=== PATIENT | female | born 1980 | race Two or more races ===

== ENCOUNTER 2020-04-09 13:04 | Inpatient (IN) | payer OTHER ==
[~2020-04-09] VITALS: Ht 162.6 cm; Wt 154.7 kg
[2020-04-09 13:10] VITALS: BP 134/100
--- NOTE | 2020-04-09 13:10 | NUR ---
ED Nurse Note: Pt BIBA RA26 from home c/o SOB. Per EMS, pt was desatting to 87% RA, placed on 4L nc, O2 improved to 96%. Pt is tachycardic at 136. Denies CP. Afebrile. Pt is tested positive for Covid x1 week ago. Isolation precaution is in place. Placed on assorter. ERMD at bedside.
--- NOTE | 2020-04-09 13:30 | NUR ---
ED Nurse Note: IV line established. Blood and covid swab sent to lab.
[2020-04-09 13:38] LABS: BASOPHILS % (AUTO) 0.7 % (0.0-2.0); HEMATOCRIT 39.3 % (37.0-47.0); HEMOGLOBIN 11.3 G/DL (12.0-16.0); LYMPHOCYTES % (AUTO) 10.4 % (20.0-45.0); MEAN CORPUSCULAR VOLUME 81 FL (80-99); MONOCYTES % (AUTO) 9.4 % (1.0-10.0); NEUTROPHILS % (AUTO) 79.5 % (45.0-75.0); PLATELET COUNT 348 K/UL (150-450); RED BLOOD COUNT 4.87 M/UL (4.20-5.40); RED CELL DISTRIBUTION WIDTH 14.9 % (11.6-14.8)
--- NOTE | 2020-04-09 13:42 | NUR ---
ED Nurse Note: Xray at bedside.
--- NOTE | 2020-04-09 13:46 | Emergency Room Report ---
History of Present Illness General Chief Complaint: Dyspnea/Respdistress Source: Patient Present Illness HPI 39-year-old female with history of morbid obesity, diabetes, hypertension here with shortness of breath. Patient tested positive for Covid 7 days ago. Says that over the past several days she has become increasingly short of breath and has had a worsening cough. When paramedics arrived the patient had an oxygen saturation of 84% on room air. She was put on 4 L nasal cannula with good resolution of her hypoxia. Patient complaining of chest tightness. Has felt subjectively febrile but did not check his temperature. No headache, vision changes, focal numbness or weakness, chills, palpitations, back pain, abdominal pain, nausea, vomiting, diarrhea, dysuria. 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 COVID-19 Screening: Positive COVID-19 COVID-19 Testing Source: 1 week ago Nursing Documentation-[facility] Past Medical History: No History, Except For Hx Cardiac Problems: Yes - CHF, obesity Hx Hypertension: Yes - high cholesterol Hx Diabetes: Yes Review of Systems All Other Systems: negative except mentioned in HPI Physical Exam Vital Signs Date Time Temp Pulse Resp B/P (MAP) Pulse Ox O2 Delivery O2 Flow Rate FiO2 04/09/20 13:05 98.8 136 16 134/100 (111) 95 Nasal Cannula 4.0 Sp02 EP Interpretation: reviewed, normal General Appearance: no apparent distress, alert, non-toxic Head: normocephalic, atraumatic Eyes: bilateral eye normal inspection, bilateral eye PERRL ENT: hearing grossly normal, normal pharynx, no angioedema, normal voice Neck: full range of motion, supple/symm/no masses Respiratory: chest non-tender, speaking full sentences, other - Notes. Speaking full sentences. Mildly tachypneic but no respiratory distress Cardiovascular #1: regular rate, rhythm, no edema Cardiovascular #2: 2+ carotid (R), 2+ carotid (L), 2+ radial (R), 2+ radial (L), 2+ dorsalis pedis (R), 2+ dorsalis pedis (L) Gastrointestinal: normal bowel sounds, non tender, soft, non-distended, no guarding, no rebound Rectal: deferred Genitourinary: normal inspection, no CVA tenderness Musculoskeletal: back normal, normal range of motion, gait/station normal, non- tender Neurologic: alert, motor strength/tone normal, oriented x3, sensory intact, responsive, speech normal Psychiatric: judgement/insight normal, memory normal, mood/affect normal, no suicidal/homicidal ideation Lymphatic: no adenopathy Medical Decision Making Diagnostic Impression: Primary Impression: Dyspnea Additional Impressions: Respiratory distress Pneumonia due to COVID-19 virus ER Course EKG: NSR, no ischemia, intervals WNL. No ectopy. Right axis deviation. Rate 117 bpm Rhythm strip: patient monitored for arrhythmias - no malignant dysrhythmias, runs of PVCs, nor pauses noted Chest x-ray: Noted cardiomegaly. Interstitial infiltrates in all lung delarosa consistent with likely viral pneumonia. No pneumothorax. No bony abnormalities. No free air under the diaphragm Laboratory Tests Test 04/09/20 13:30 White Blood Count 6.0 K/UL (4.8-10.8) Red Blood Count 4.87 M/UL (4.20-5.40) Hemoglobin 11.3 G/DL (12.0-16.0) L Hematocrit 39.3 % (37.0-47.0) Mean Corpuscular Volume 81 FL (80-99) Mean Corpuscular Hemoglobin 23.1 PG (27.0-31.0) L Mean Corpuscular Hemoglobin Concent 28.7 G/DL (32.0-36.0) L Red Cell Distribution Width 14.9 % (11.6-14.8) H Platelet Count 348 K/UL (150-450) Mean Platelet Volume 8.0 FL (6.5-10.1) Neutrophils (%) (Auto) 79.5 % (45.0-75.0) H Lymphocytes (%) (Auto) 10.4 % (20.0-45.0) L Monocytes (%) (Auto) 9.4 % (1.0-10.0) Eosinophils (%) (Auto) 0.0 % (0.0-3.0) Basophils (%) (Auto) 0.7 % (0.0-2.0) Prothrombin Time 14.5 SEC (9.30-11.50) H Prothrombin Time INR 1.3 (0.9-1.1) H Activated Partial Thromboplast Time 30 SEC (23-33) D-Dimer Pending Sodium Level Pending Potassium Level Pending Chloride Level Pending Carbon Dioxide Level Pending Blood Urea Nitrogen Pending Creatinine Pending Estimated Glomerular Filtration Rate Pending Glucose Level Pending Lactic Acid Level Pending Calcium Level Pending Magnesium Level Pending Ferritin Pending Total Bilirubin Pending Aspartate Amino Transferase (AST) Pending Alanine Aminotransferase (ALT) Pending Alkaline Phosphatase Pending Lactate Dehydrogenase Pending Total Creatine Kinase Pending Creatine Kinase MB Pending Troponin I Pending C-Reactive Protein, Quantitative Pending Pro-B-Type Natriuretic Peptide Pending Total Protein Pending Albumin Pending Globulin Pending Lipase Pending 39-year-old female with history of CHF, hypertension, diabetes, morbid obesity here with shortness of breath. Patient tested positive for COVID-19 7 days ago. She was hypoxic when paramedics arrived with an oxygen saturation of 84% on room air. She has been on 4 L nasal cannula in the emergency department and appears much more comfortable and has a normal oxygen saturation. Chest x-ray showed severe cardiomegaly consistent with patient's known diagnosis of CHF. She has multiple interstitial infiltrates with pulmonary vascular congestion. Given 40 mg of Lasix IV. Says she believes that she takes "a water pill" but she is not compliant with this medication. She is known Covid positive. Currently awaiting results from Covid test and inflammatory markers. Given ceftriaxone, azithromycin, Decadron, Lovenox. [facility]. Currently awaiting further work-up. Signed out to oncoming physician. Last Vital Signs Date Time Temp Pulse Resp B/P (MAP) Pulse Ox O2 Delivery O2 Flow Rate FiO2 04/09/20 13:10 98.8 136 16 134/100 95 Nasal Cannula 4.0 Referrals: [facility],REFERRING (PCP) Jus Arellano M.D. Apr 09, 2020 13:46
[2020-04-09 13:47] LABS: INR 1.3 (0.9-1.1)
[2020-04-09 13:54] LABS: CREATININE 1.1 MG/DL (0.55-1.30); POTASSIUM 3.9 MMOL/L (3.5-5.1)
[2020-04-09] MEDS ORDERED: Azithromycin 500 MG in NS 275 ML IVPB ONE (14:00)
[2020-04-09] MEDS ORDERED: dexAMETHasone 10mg/ml Inj IV ONE (14:00)
[2020-04-09] MEDS ORDERED: cefTRIAXone 1 GM in NS 55 ML IV ONE (14:00)
[2020-04-09] MEDS ORDERED: Enoxaparin 40mg Inj SUBQ SCH (14:00)
--- NOTE | 2020-04-09 14:06 | Diagnostic Imaging Report ---
Indication: Shortness of breath Technique: One view of the chest Comparison: none Findings: Body habitus limits evaluation. The heart is enlarged. There is bilateral interstitial and airspace disease. The pleural spaces are clear. Impression: Cardiomegaly Bilateral interstitial and airspace disease, likely pulmonary edema, but infiltrates also possible
[2020-04-09 14:09] LABS: ALBUMIN 2.5 G/DL (3.4-5.0); ALBUMIN/GLOBULIN RATIO 0.4 (1.0-2.7); BILIRUBIN,TOTAL 0.6 MG/DL (0.2-1.0); CKMB 1.8 NG/ML (0.0-3.6)
[2020-04-09 14:12] VITALS: BP 132/81
[2020-04-09] MEDS ORDERED: METFORMIN HCL500 M1 ORAL (14:20)
--- NOTE | 2020-04-09 14:45 | NUR ---
ED Nurse Note: Urine sent to lab.
[2020-04-09 14:49] LABS: APPEARANCE,URINE VERY CLOUDY; BILIRUBIN, URINE NEGATIVE (NEGATIVE); GLUCOSE, URINE (UA) NEGATIVE (NEGATIVE); KETONES,URINE NEGATIVE (NEGATIVE); LEUKOCYTE ESTERASE ,URINE 2+ (NEGATIVE); NITRITE,URINE NEGATIVE (NEGATIVE); PH,URINE 6 (4.5-8.0); PROTEIN,URINE 4+ (NEGATIVE); UROBILINOGEN,URINE 4 MG/DL (0.0-1.0)
[2020-04-09 14:55] LABS: COLOR,URINE YELLOW
--- NOTE | 2020-04-09 16:25 | NUR ---
ED Nurse Note: Report given to Christina RAYMOND.
--- NOTE | 2020-04-09 16:27 | NUR ---
NURSE NOTES: Received report from ER nurse Luma/RN, Awaiting for patient to come up to 2E.
[2020-04-09 16:40] VITALS: BP 129/74
--- NOTE | 2020-04-09 16:40 | NUR ---
TRANSFER TO FLOOR: Patient transferred to Telemetry via gurney accompanied by 2 RNs. Pt AAOx4, verbally responsive. On 4L nc, not in any distress. IV line on right AC 20g patent and intact. No skin issues. All belongings sent with the patient.
--- NOTE | 2020-04-09 16:47 | Consultation ---
Consult Note Consult Note DATE OF CONSULTATION: 04/09/2020 CONSULTING PHYSICIAN: Klaus Carrero MD. ATTENDING PHYSICIAN: Dr. Mason REASON FOR CONSULTATION: COVID-19 pneumonia with hypoxia HISTORY OF PRESENT ILLNESS: This is a 39-year-old female with history of morbid obesity, diabetes, hypertension, who presented to the ED for evaluation of shortness of breath. Patient reported testing positive for COVID-19 7 days ago. She also reported that he her shortness of breath has progressively worsened over the last few days. She was saturating at 84% on room air on arrival. Now she is saturating at 98% on 4 L nasal cannula. She denies fever, cough, headache, chills, palpitation, back pain, abdominal pain, nausea, vomiting, di arrhea, or dysuria. EKG showed normal sinus rhythm with no ischemia. Chest x-ray is notable for bilateral interstitial and airspace disease. She tested positive for COVID-19 via rapid gene assay in the ER. She was given ceftriaxone, azithromycin, Decadr on, and Lovenox in the ER and is awaiting admission. PAST MEDICAL HISTORY: Hypertension, diabetes mellitus, morbid obesity MEDICATIONS: Home medications include Metformin ALLERGIES: No known allergies FAMILY HISTORY: Unknown PERSONAL/SOCIAL HISTORY: Lives at home REVIEW OF SYSTEMS: Negative except mentioned in HPI PHYSICAL EXAMINATION: VITAL SIGNS: Blood pressure 134/100, heart rate 136, respiratory rate 19, weight 127 kg, height 162 cm General: Patient laying in bed, NAD, mildly increased work of breathing on 4 L nasal cannula, saturating at 98% HEENT: Head exam reveals that the head is normocephalic, atraumatic without deformity or unusual swelling. Pupils are PERRLA. CHEST AND LUNGS: Reveals clear, normal, symmetrical breath sounds with no adventitious sounds. CARDIOVASCULAR: Reveals normal S1, S2 without murmurs, rubs, or clicks. ABDOMEN: Soft with no tenderness or organomegaly. RECTAL: Deferred. MUSCULOSKELETAL: There is no tenderness to palpation. Range of motion is normal. NEUROLOGICAL: Alert and oriented x3 , nonfocal Extremities: Dry scaly skin in bilateral lower extremity LABORATORY DATA: Laboratory testing shows hemoglobin 11.3, otherwise unremarkable Chemistries show BUN 25, glucose 117, lactic acid 2.8, calcium 8.0, AST 79, LDH 378, troponin 0.153, CRP 16.8, BNP 9293 Urinalysis shows 4+ protein, 5+ blood, 2+ leukocyte esterase, presence of urine bacteria Coagulation panel is notable for D-dimer 3.99 Assessment/Plan 1. COVID-19 pneumonia -We will continue steroids and broad-spectrum antibiotics -Defer use of remdesivir to ID -Provide supplemental oxygen as needed 2. Elevated inflammatory markers -We will initiate Lovenox for DVT prophylaxis 3. GIANNA -IV fluids -Management per primary MD 4. Diabetes mellitus with hyperglycemia -Patient reports taking Metformin at home 5. Lactic acidemia - per primary MD 6. Hypocalcemia - per primary MD 7. Transaminitis, likely secondary to #1 - monitor AST, ALT 8. Elevated troponin -Serial troponin The care for this patient was discussed with my supervising physician. Time spent for this case was approximately 31 minutes. Vitaly Mcginnis Apr 09, 2020 16:47
--- NOTE | 2020-04-09 16:55 | NUR ---
NURSE NOTES: Patient transferred from ED via gurney to room 209-2, without any incident. Awake and alert, mostly Afghan speaking. improvement nurse placed, changed to hospital gown. Belonging check done with transferring nurse, Patient has $80 dollars and refused to send it to safe. Vital sign taken, respiration tachypneic and shallow. Pt has multiple skin issues, will put order for wound eval. Bed in low position and locked, Call light within reach, Encouraged to use call light when needed. Will contact MD for admission orders.
[2020-04-09] MEDS ORDERED: Morphine Sulfate 2mg/ml Inj(IV/IM USE ONLY) IVP PRN (18:15)
[2020-04-09] MEDS: D5 1/2NS 1,000 ML IV SCH (18:25)
[2020-04-09] MEDS ORDERED: Varibar Nectar 240ml MC PRN (19:15)
[2020-04-09] MEDS ORDERED: Varibar Thin Liquid powder 148gm MC PRN (19:15)
[2020-04-09] MEDS ORDERED: Varibar Pudding 230ml MC PRN (19:15)
[2020-04-09] MEDS ORDERED: Varibar Honey 250ml MC PRN (19:15)
--- NOTE | 2020-04-09 19:20 | NUR ---
NURSE HAND-OFF REPORT: Important Events on Shift: New admission Patient Status: Stable Diet: Regular Pending Orders: N/A Pending Results/Labs:morning labs Pending MD notification:N/A Latest Vital Signs: Temperature 98.8 , Pulse 103 , B/P 129 /74 , Respiratory Rate 19 , O2 SAT 98 , Nasal Cannula, O2 Flow Rate 4.0 . Vital Sign Comment: stable EKG Rhythm: Sinus Tachycardia Rhythm change?: MD Notified?: - MD Response: Latest Velasquez Fall Score: 35 Fall Risk: Medium Risk Safety Measures: Call light Within Reach, Bed Alarm Zone 1, Side Rails Side Rails x2, Bed position Low and Locked. Fall Precautions: Yellow Gown Door Sign Patient Fall Education Report given to Columba/SEGUNDO.
--- NOTE | 2020-04-09 19:36 | NUR ---
NURSE NOTES: Received report from mitchell marcelino. received patient on bed, awake. on nc @ 2LPM. no sob. iv access on the right ac running ivf as ordered. denies any pain or discomfort at the moment. engine monitor is on place. per RN, " NSR but ST in the ER(136 heart rate)". reiterated to call and ask for assistance to prevent fall or injury. bed locked and in lowest position. call light and light button within easy reach. bed alarm on. will continue plan of care.
[2020-04-09 20:00] VITALS: BP 110/80
[2020-04-10] VITALS: BP 114/81
[2020-04-10 04:00] VITALS: BP 118/70
--- NOTE | 2020-04-10 04:40 | NUR ---
NURSE NOTES: Bed bath done, patient has a BM, soft brownish moderate in amount. Patient is saturating 94-95% with no complaints of SOB the whole shift. No fever nor desaturation noted.
[2020-04-10 06:46] LABS: BASOPHILS % (AUTO) 0.9 % (0.0-2.0); HEMATOCRIT 40.2 % (37.0-47.0); HEMOGLOBIN 11.5 G/DL (12.0-16.0); LYMPHOCYTES % (AUTO) 16.2 % (20.0-45.0); MEAN CORPUSCULAR VOLUME 81 FL (80-99); MONOCYTES % (AUTO) 10.7 % (1.0-10.0); NEUTROPHILS % (AUTO) 72.1 % (45.0-75.0); PLATELET COUNT 359 K/UL (150-450); RED BLOOD COUNT 4.94 M/UL (4.20-5.40); WHITE BLOOD COUNT 4.7 K/UL (4.8-10.8)
[2020-04-10 07:03] LABS: CREATININE 1.2 MG/DL (0.55-1.30); POTASSIUM 4.6 MMOL/L (3.5-5.1)
--- NOTE | 2020-04-10 07:05 | NUR ---
NURSE NOTES: Received report from Brenna/SEGUNDO. Observed patient awake and alert AAO x4, Able to make needs known, mostly Afghan speaking, On 2L nasal canula, no acute distress/SOB noted. IV on right AC 20G, patent and intact. D5 1/2 NS running @60cc/hr. Side rails up x3, Bed in lowest position and locked. Call light within reach, Encouraged to use call light when needed. Will continue plan of care.
--- NOTE | 2020-04-10 07:23 | NUR ---
NURSE HAND-OFF REPORT: Important Events on Shift: Patient has been resting well the whole shift, no desaturation noted. Patient Status: Patient is awake on bed in stable condition. Plan of care endorsed. Diet: Regular diet Pending Orders: Venous duplex scan Pending Results/Labs:AM lab result Pending MD notification:none Latest Vital Signs: Temperature 98.6 , Pulse 91 , B/P 118 /70 , Respiratory Rate 27 , O2 SAT 94 , Nasal Cannula, O2 Flow Rate 2.0 . Vital Sign Comment: stable EKG Rhythm: Sinus Tachycardia Rhythm change?: N MD Notified?: - MD Response: Latest Velasquez Fall Score: 45 Fall Risk: High Risk Safety Measures: Call light Within Reach, Bed Alarm Zone 1, Side Rails Side Rails x2, Bed position Low and Locked. Fall Precautions: Yellow Socks Yellow Gown Door Sign Patient Fall Education Report given to SEGUNDO Crow.
[2020-04-10 08:00] VITALS: BP 109/55
[2020-04-10] MEDS: Azithromycin 500 MG in D5W 275 ML IV SCH (08:32)
[2020-04-10] MEDS: cefTRIAXone 1 GM in D5W 55 ML IVPB SCH (08:33)
[2020-04-10] MEDS: dexAMETHasone 10mg/ml Inj IV SCH (08:33)
[2020-04-10] MEDS: Enoxaparin 40mg Inj SUBQ SCH (08:34)
--- NOTE | 2020-04-10 08:56 | NUR ---
PT NOTE Received MD order for PT evaluation. Patient with order for duplex venous scan bilateral LEs. Will wait for results of duplex scan prior to initiating PT evaluation. Christina RN notified, will follow.
[2020-04-10] MEDS: D5 1/2NS 1,000 ML IV SCH (11:15)
--- NOTE | 2020-04-10 11:23 | Diagnostic Imaging Report ---
Indication:Leg pain and swelling Technique: Grayscale and duplex Doppler imaging of the veins in both lower extremities performed in real time utilizing compression and augmentation. Comparison: None Findings: Duplex Doppler interrogation of the veins in both lower extremity is performed from the common femoral vein to the popliteal vein. Exam is technically limited due to patient obesity. Visualized portions of the right common femoral vein, femoral vein and popliteal vein are patent with observed compressibility and maintained color and Doppler flow. Visualized portions of the left common femoral vein, femoral vein and popliteal vein are patent with preserved compressibility and maintained color and Doppler flow. IMPRESSION: Technically limited evaluation due to body habitus/obesity. No deep venous thrombosis appreciated to the extent visualized.
[2020-04-10 12:00] VITALS: BP 100/60
--- NOTE | 2020-04-10 13:26 | Pulmonology Progress Note ---
Subjective ROS Limited/Unobtainable: No Interval Events: none major reported per nursing Constitutional: Reports: other - feels better HEENT: Repors: no symptoms Respiratory: Reports: no symptoms Cardiovascular: Reports: no symptoms Gastrointestinal/Abdominal: Reports: no symptoms Allergies: Coded Allergies: No Known Allergies (Unverified , 04/09/20) Objective Last 24 Hour Vital Signs Date Time Temp Pulse Resp B/P (MAP) Pulse Ox O2 Delivery O2 Flow Rate FiO2 04/10/20 12:00 86 04/10/20 12:00 97.6 69 20 100/60 (73) 97 04/10/20 09:00 Nasal Cannula 2.0 04/10/20 08:00 98.6 97 21 109/55 (73) 96 04/10/20 08:00 98 04/10/20 04:00 98.6 91 27 118/70 (86) 94 04/10/20 04:00 92 04/10/20 00:00 98.5 97 30 114/81 (92) 95 04/09/20 21:00 Nasal Cannula 2.0 04/09/20 20:00 112 04/09/20 20:00 98.8 104 28 110/80 (90) 94 04/09/20 16:51 Nasal Cannula 4.0 04/09/20 16:40 98.8 103 19 129/74 98 Nasal Cannula 4.0 04/09/20 16:40 98.8 103 19 129/74 98 Nasal Cannula 4.0 04/09/20 14:12 98.8 105 19 132/81 98 Nasal Cannula 4.0 Intake and Output 04/09/20 04/10/20 19:00 07:00 Intake Total 500 ml 250 ml Balance 500 ml 250 ml Intake Oral 250 ml IV Total 500 ml # Voids 1 2 # Bowel Movements 1 General Appearance: no acute distress HEENT: atraumatic Respiratory: lungs clear Cardiovascular: normal rate Abdomen: soft, non tender Microbiology Date/Time Source Procedure Growth Status 04/09/20 13:30 Nasopharynx SARS-CoV-2 RdRp Gene Assay - Final Complete Laboratory Tests 04/09/20 13:30: White Blood Count 6.0, Red Blood Count 4.87, Hemoglobin 11.3L, Hematocrit 39.3, Mean Corpuscular Volume 81, Mean Corpuscular Hemoglobin 23.1L, Mean Corpuscular Hemoglobin Concent 28.7L, Red Cell Distribution Width 14.9H, Platelet Count 348, Mean Platelet Volume 8.0, Neutrophils (%) (Auto) 79.5H, Lymphocytes (%) (Auto) 10.4L, Monocytes (%) (Auto) 9.4, Eosinophils (%) (Auto) 0.0, Basophils (%) (Auto) 0.7, Prothrombin Time 14.5H, Prothromb Time International Ratio 1.3H, Activated Partial Thromboplast Time 30, D-Dimer 3.99H, Sodium Level 139, Potassium Level 3.9, Chloride Level 102, Carbon Dioxide Level 31, Anion Gap 7, Blood Urea Nitrogen 25H, Creatinine 1.1, Estimat Glomerular Filtration Rate 55.0, Glucose Level 117H, Lactic Acid Level 2.80H, Calcium Level 8.0L, Magnesium Level 1.8, Ferritin 113, Total Bilirubin 0.6, Aspartate Amino Transf (AST/SGOT) 79H, Alanine Aminotransferase (ALT/SGPT) 43, Alkaline Phosphatase 115, Lactate Dehydrogenase 378H, Total Creatine Kinase 281, Creatine Kinase MB 1.8, Creatine Kinase MB Relative Index 0.6, Troponin I 0.153H, C-Reactive Protein, Quantitative 16.8H, Pro-B-Type Natriuretic Peptide 9293H, Total Protein 8.3H, Albumin 2.5L, Globulin 5.8, Albumin/Globulin Ratio 0.4L, Lipase 125 04/09/20 14:45: Lactic Acid Level 2.50H, Urine Color Yellow, Urine Appearance Very cloudy, Urine pH 6, Urine Specific [place] 1.015, Urine Protein 4+H, Urine Glucose (UA) Negative, Urine Ketones Negative, Urine Blood 5+H, Urine Nitrite Negative, Urine Bilirubin Negative, Urine Urobilinogen 4H, Urine Leukocyte Esterase 2+H, Urine RBC 15-20H, Urine WBC 5-10H, Urine Squamous Epithelial Cells ModerateH, Urine Amorphous Sediment FewH, Urine Bacteria ModerateH 04/10/20 06:00: White Blood Count 4.7L, Red Blood Count 4.94, Hemoglobin 11.5L, Hematocrit 40.2, Mean Corpuscular Volume 81, Mean Corpuscular Hemoglobin 23.4L, Mean Corpuscular Hemoglobin Concent 28.7L, Red Cell Distribution Width 15.0H, Platelet Count 359, Mean Platelet Volume 8.6, Neutrophils (%) (Auto) 72.1, Lymphocytes (%) (Auto) 16.2L, Monocytes (%) (Auto) 10.7H, Eosinophils (%) (Auto) 0.0, Basophils (%) (Auto) 0.9, Sodium Level 140, Potassium Level 4.6, Chloride Level 104, Carbon Di oxide Level 32, Anion Gap 4L, Blood Urea Nitrogen 35H, Creatinine 1.2, Estimat Glomerular Filtration Rate 49.8, Glucose Level 131H, Calcium Level 8.0L Current Medications Medications (Trade) Dose Ordered Sig/Arturo Route PRN Reason Start Time Stop Time Status Last Admin Dose Admin Azithromycin 500 mg/Dextrose 275 ml @ 275 mls/hr Q24HRS IV 04/10/20 09:00 04/16/20 09:59 04/10/20 08:32 Barium Sulfate (Varibar Honey) 250 ml NOW PRN MC RAD 04/09/20 19:15 04/12/20 19:03 Barium Sulfate (Varibar Floral) 240 ml NOW PRN MC RAD 04/09/20 19:15 04/12/20 19:03 Barium Sulfate (Varibar Pudding) 230 ml NOW PRN MC RAD 04/09/20 19:15 04/12/20 19:03 Barium Sulfate (Varibar Thin Liquid powder) 148 gm NOW PRN MC RAD 04/09/20 19:15 04/12/20 19:03 Ceftriaxone Sodium 1 gm/ Dextrose 55 ml @ 110 mls/hr Q24H IVPB 04/10/20 09:00 04/17/20 08:59 04/10/20 08:33 Dexamethasone Sodium Phosphate (Decadron 10mg/ ml Inj) 6 mg DAILY IV 04/10/20 09:00 04/18/20 09:01 04/10/20 08:33 Dextrose/Sodium Chloride 1,000 ml @ 60 mls/hr [id number] IV 04/09/20 18:15 05/09/20 18:14 04/10/20 11:15 Enoxaparin Sodium (Lovenox) 40 mg DAILY SUBQ 04/10/20 09:00 07/09/20 08:59 04/10/20 08:34 Morphine Sulfate (Morphine Sulfate) 2 mg Q4H PRN IVP For Pain 04/09/20 18:15 04/16/20 18:14 Assessment/Plan Assessment/Plan 1. COVID-19 pneumonia -We will continue steroids and broad-spectrum antibiotics -Defer use of remdesivir to ID -Provide supplemental oxygen as needed 2. Elevated inflammatory markers -continue Lovenox for DVT prophylaxis - Venous duplex neg for DVT (04/10) 3. GIANNA -IV fluids -Management per primary MD 4. Diabetes mellitus with hyperglycemia -Patient reports taking Metformin at home 5. Lactic acidemia - per primary MD 6. Hypocalcemia - per primary MD 7. Transaminitis, likely secondary to #1 - monitor AST, ALT 8. Elevated troponin -Serial troponin The care for this patient was discussed with my supervising physician. Time spent for this case was approximately 31 minutes. Vitaly Mcginnis Apr 10, 2020 13:26
--- NOTE | 2020-04-10 13:40 | NUR ---
Community Outreach WorkerRegistered Public Health Nurse Patient MAGALI from home CC: Respiratory distress, (+) COVID test x 1 week ago SI: Respiratory Failure, COVID-19, PNA T-98.7, HR 136, RR 16, BP 134/100 O2 sat 87% on RA O2 4L NC D-Dimer 3.99, troponin 0.153, NT-ProBNP 9293, Lactic Acid 2.8 U/A Leukocyte esterase 2+, WBC 5-10, bacteria moderate, BUN 25 Cxray-interstitial infiltrates in all lung delarosa consistent with likely viral pneumonia. IS: NACL Bolus Lasix 40mg IV Azithromycin IV Decadron IV Rocephin IV Lovenox IV Admit to Telemetry Telemetry Status DCP: Home pending hospitalization
--- NOTE | 2020-04-10 14:15 | Consultation ---
DATE OF CONSULTATION: 04/10/2020 INFECTIOUS DISEASE CONSULTATION CONSULTING PHYSICIAN: Usman Gant MD. PRIMARY ATTENDING PHYSICIAN: Dawood Mason DO. This consult is for coverage of Dr. Lucero. REASON FOR CONSULT: COVID-19 disease. HISTORY OF PRESENT ILLNESS: This is a 39-year-old female admitted yesterday from home complaining of shortness of breath and cough, had decrease in O2 saturation with O2 saturation of 84% on room air. The patient was COVID positive seven days before the day of admission. PAST MEDICAL HISTORY: Morbid obesity, hyperlipidemia, diabetes mellitus. ALLERGIES: No known drug allergies. MEDICATIONS: Getting enoxaparin, dexamethasone, ceftriaxone, azithromycin, morphine. SOCIAL HISTORY: Single. Denies alcohol, drug abuse, or smoking. REVIEW OF SYSTEMS: No fever. No chills. Has some dry cough. No nausea. No vomiting. No diarrhea. PHYSICAL EXAMINATION: VITAL SIGNS: Temperature is 97.6, pulse 69, blood pressure 100/60. GENERAL APPEARANCE: Morbidly obese. HEAD AND NECK: Getting oxygen by nasal cannula. Currently on 2 liters, oxygen saturation is 97%. HEART: Tachycardia. LUNGS: Clear. ABDOMEN: Soft, obese. EXTREMITIES: She has evidence of stasis dermatitis of both legs, has edema of right foot. LABORATORY AND DIAGNOSTIC DATA: WBC 4.7, hemoglobin 11.5, hematocrit 40.2, platelets 359,000. Lymphocytes is low 16.2%. Lactic acid is elevated, the latest one is 2.5. Sodium 140, potassium 4.6, chloride 104, bicarb 32, BUN 35, creatinine 1.2. Glucose 131. Troponin was 0.153. UA showed wbc of 5 to 10, rbc of 15 to 20. IMPRESSION: 1. COVID-19 disease. 2. Hypoxemia. 3. Morbid obesity. 4. Hyperlipidemia. 5. Lymphocytopenia. 6. Lactic acidosis. 7. Hyperglycemia. RECOMMENDATION: Continue dexamethasone and azithromycin. Case was discussed with pharmacy. If the patient is eligible he will receive remdesivir. At the end of my exam, I thank Dr. Dawood Mason for involving me in the care of this patient. Usman Gant M.D. DR: SYDNEY JOB#: [id number] CC:
--- NOTE | 2020-04-10 14:25 | NUR ---
NURSE NOTES:WOUND CARE NOTES: Morbidly obese pt whom presented on admission with MASD skin folds of both breasts, abdominal folds, Bilat groin and skin folds of both upper thighs. Affected areas are grossly Erythematous, denuded and malodorous Haemosiderin with thickened,scaled skin Bilat lower ext. Necrotic Ulcer noted to distal/lateral Lower ext(L)1.3cm x (W)1.2cm. Marginal erythema along borders. No exudate noted. Both heels are callused and dry. Pt has been educated on wound prevention. Encouraged to frequently or at least hourly reposition self in bed to prevent pressure injury. Pt also noted to have Bladder incontinence. Pt encouraged to notify staff when soiled to prevent Pressure Injuries. Tx.Plan: Wash and dry skin folds. Apply Light dusting of Antifungal powder to skin folds. Interdry sheets to skin folds of both breasts and abdominal folds. Remove Sheetes only for cleansing. May leave in place for 5 days then discard. Apply Betadine to Ulcer R Lateral lower ext. Cover with Optifoam drsg. Change every 3 days and prn. Assist wth repositioning at least every 2hours or as tolerated. Elevate both legs and Off-load heels with Pillow.
[2020-04-10 16:00] VITALS: BP 94/60
--- NOTE | 2020-04-10 16:26 | NUR ---
Speech Pathology Note: Per RN, patient currently tolerating current regular texture diet with no overt/subtle s/s of aspiration. Bedside Swallow Evaluation cancelled. Thank you for this consult.
--- NOTE | 2020-04-10 17:44 | History and Physical Report ---
DATE OF ADMISSION: 04/09/2020 DATE AND TIME SEEN: 04/10/2020 at 2 p.m. CONSULTANTS: 1. Klaus Carrero M.D. 2. Leo Lucero M.D. CHIEF COMPLAINT: Shortness of breath, COVID infection, hypoxia, and obesity. BRIEF HISTORY: This is a 39-year-old female who lives at home, tested positive for COVID about a week ago, has been having increased shortness of breath. Yesterday she was very weak and lethargic and short of breath, came into [facility], diagnosed with the above as well as hypoxia down to 84%, requiring 4 L nasal cannula. [facility], currently O2 NC, sleeping in bed, not talking much. REVIEW OF SYSTEMS: Unavailable. PAST MEDICAL HISTORY: Diabetes, hypertension, obesity, CHF, COVID. PAST SURGICAL HISTORY: Unknown. MEDICATIONS: , dexamethasone, ceftriaxone, azithromycin, morphine, furosemide. ALLERGIES: Denies. SOCIAL HISTORY: Unable to obtain. The patient is lethargic and sleepy. PHYSICAL EXAMINATION: GENERAL: Lethargic and sleeping in bed, not talking much. VITAL SIGNS: Temperature 97, pulse 69, respirations 20, blood pressure 100/60. CARDIOVASCULAR: No murmur. LUNGS: Poor air exchange. ABDOMEN: Bowel sounds distant. EXTREMITIES: No cyanosis, clubbing, edema. NEUROLOGIC: The patient moves extremities, but slightly weak. LABORATORY AND DIAGNOSTIC DATA: Labs at this time show white count of 4.7, H and H 11/45, platelets are 359. BMP shows BUN of 35, creatinine 1.2, glucose 131, calcium 8. Troponin 0.153. BNP is . Albumin 2.5. INR is 1.3. D-dimer 3.99. Urinalysis, 4+ protein, 5+ blood, 2+ leukocyte esterase. ASSESSMENT: 1. COVID infection. 2. Shortness of breath. 3. Malnutrition. 4. Hypoxia. 5. UTI. 6. Obesity. 7. Anemia. 8. Elevated troponin. 9. Diabetes. 10. Hypertension. 11. CHF. PLAN: 1. O2, pulmonary treatment. 2. Antibiotics per Infectious Disease. 3. Blood pressure and blood sugar control. 4. Dietary followup. 5. Cardiology evaluation, Dr. Tijerina. 6. CBC and BMP in the morning. 7. PT/dietary evaluation. Dawood Mason D.O. DR: RAJNI JOB#: [id number] CC:
[2020-04-10] MEDS ORDERED: IRON325 M1 PO (17:49)
[2020-04-10] MEDS ORDERED: IBUPROFEN400 MG ORAL (17:49)
--- NOTE | 2020-04-10 19:09 | NUR ---
NURSE HAND-OFF REPORT: Important Events on Shift:covid monitoring, seen by wound care nurse Patient Status: stable Diet: reg Pending Orders: na Pending Results/Labs:na Pending MD notification:n/a Latest Vital Signs: Temperature 97.1 , Pulse 91 , B/P 94 /60 , Respiratory Rate 19 , O2 SAT 97 , Nasal Cannula, O2 Flow Rate 2.0 . Vital Sign Comment: Stable EKG Rhythm: Sinus Rhythm Rhythm change?: N MD Notified?: - MD Response: Latest Velasquez Fall Score: 45 Fall Risk: High Risk Safety Measures: Call light Within Reach, Bed Alarm Zone 1, Side Rails Side Rails x2, Bed position Low and Locked. Fall Precautions: Yellow Socks Yellow Gown Door Sign Patient Fall Education Report given to SEGUNDO Ventura.
[2020-04-10] MEDS: guaiFENesin /DM 10ml syrup ORAL PRN (19:43)
--- NOTE | 2020-04-10 19:50 | NUR ---
NURSE NOTES: Patient in bed, awake and alert x4. No signs of distress. athletic monitor in place; sinus rhythm. IV intact and patent. Bed locked and in lowest position. Call light in reach. Bed alarm on. Administered PRN cough medicine as ordered. Will continue plan of care.
[2020-04-10 20:00] VITALS: BP 100/60
--- NOTE | 2020-04-10 22:33 | NUR ---
NURSE NOTES: Patient on 4L oxygen at beginning of shift. O2 saturation began to go down to the 80's. Called RT, who attempted venturi mask but patient continued to desaturate to the 70's. Non-rebreather mask applied at 100% - patient's O2 sat now at 99%. Spoke with Dr. Carrero who is now aware. No further orders. Will continue to monitor.
[2020-04-11] VITALS: BP 141/67
[2020-04-11] MEDS: D5 1/2NS 1,000 ML IV SCH ×2 (03:49→20:54)
[2020-04-11 03:55] VITALS: BP 135/85
--- NOTE | 2020-04-11 05:30 | NUR ---
NURSE NOTES: Patient's temperature 100.[address] Lior Gant - Tylenol 650 PRN ordered. Will administer and reassess.
--- NOTE | 2020-04-11 07:21 | NUR ---
NURSE HAND-OFF REPORT: Important Events on Shift: Desaturating on NC - Now on non-rebreather mask 100%, Fever 100.9 Patient Status: Stable Diet: Reg Pending Orders: N/A Pending Results/Labs: CBC, BMP Pending MD notification: N/A Latest Vital Signs: Temperature 99.0 , Pulse 106 , B/P 135 /85 , Respiratory Rate 36 , O2 SAT 99 , Nasal Cannula, O2 Flow Rate 4.0 . Vital Sign Comment: Sinus Tach EKG Rhythm: Sinus Tachycardia Rhythm change?: N MD Notified?: - MD Response: Latest Velasquez Fall Score: 45 Fall Risk: High Risk Safety Measures: Call light Within Reach, Bed Alarm Zone 1, Side Rails Side Rails x2, Bed position Low and Locked. Fall Precautions: Yellow Socks Yellow Gown Door Sign Patient Fall Education Report given to SEGUNDO Rosales.
--- NOTE | 2020-04-11 07:38 | NUR ---
NURSE NOTES: Received report from SEGUNDO Ventura. Patient observed to be awake, alert and oriented x4. Currently on contact and droplet iso for (+) covid. Seen lying in bed wt HOB elevated currently on a 100% NRB mask sating well, no s/sx of sob/distress. Patient with IV site located on RAC gauge 20 line asymptomatic, inplace and intact. Bed placed on lowest and locked, call light placed within reach and will continue to monitor.
--- NOTE | 2020-04-11 07:56 | NUR ---
CASE MANAGEMENT:REVIEW 04/11/20 SI: COVID PNA. GIANNA. ELEVATED TROPONIN 100.9 106 36 135/85 99% NRB IS: IV DECADRON QD IV ROCEPHIN Q24 IV AZITHROMYCIN Q24 LOVENOX SQ QD IVF@60/HR : TELEMETRY STATUS DCP: FROM HOME PLAN: ST AND PT EVAL PENDING
[2020-04-11 08:00] VITALS: BP 99/66
[2020-04-11] MEDS: Azithromycin 500 MG in D5W 275 ML IV SCH (08:24)
[2020-04-11] MEDS: dexAMETHasone 10mg/ml Inj IV SCH (08:24)
[2020-04-11] MEDS: cefTRIAXone 1 GM in D5W 55 ML IVPB SCH (08:24)
[2020-04-11 08:26] LABS: HEMATOCRIT 39.5 % (37.0-47.0); HEMOGLOBIN 11.2 G/DL (12.0-16.0); MEAN CORPUSCULAR VOLUME 83 FL (80-99); PLATELET COUNT 366 K/UL (150-450); RED BLOOD COUNT 4.76 M/UL (4.20-5.40)
[2020-04-11] MEDS: Enoxaparin 40mg Inj SUBQ SCH (08:27)
[2020-04-11 09:03] LABS: CALCIUM 8.5 MG/DL (8.5-10.1); CREATININE 1.1 MG/DL (0.55-1.30); POTASSIUM 4.4 MMOL/L (3.5-5.1)
--- NOTE | 2020-04-11 09:40 | NUR ---
PT NOTE Received MD order for PT evaluation. Connie RN requesting to hold PT evaluation today as patient desaturated last night and is now on rebreather mask. Willl follow up tomorrow.
--- NOTE | 2020-04-11 10:01 | General Progress Note ---
Subjective Constitutional: Reports: weakness Allergies: Coded Allergies: No Known Allergies (Unverified , 04/09/20) All Systems: reviewed and negative except above Subjective o2 mask sleepy Objective Last 24 Hour Vital Signs Date Time Temp Pulse Resp B/P (MAP) Pulse Ox O2 Delivery O2 Flow Rate FiO2 04/11/20 06:56 99.0 04/11/20 06:15 99.0 04/11/20 05:30 100.9 04/11/20 03:55 99.7 106 36 135/85 (102) 99 04/11/20 03:37 100 04/11/20 00:00 99.3 106 32 141/67 (91) 100 04/11/20 00:00 111 04/10/20 22:40 Non-Rebreather 04/10/20 21:00 Nasal Cannula 4.0 04/10/20 20:00 98.9 104 29 100/60 (73) 92 04/10/20 19:37 100 04/10/20 16:00 91 04/10/20 16:00 97.1 69 19 94/60 (71) 97 04/10/20 12:00 86 04/10/20 12:00 97.6 69 20 100/60 (73) 97 Intake and Output 04/10/20 04/11/20 19:00 07:00 Intake Total 700 ml Output Total 200 ml Balance 500 ml Intake Oral 700 ml Output Urine Total 200 ml # Voids 3 # Bowel Movements 1 Laboratory Tests 04/11/20 07:41: White Blood Count 8.0#, Red Blood Count 4.76, Hemoglobin 11.2L, Hematocrit 39.5, Mean Corpuscular Volume 83, Mean Corpuscular Hemoglobin 23.6L, Mean Corpuscular Hemoglobin Concent 28.4L, Red Cell Distribution Width 15.0H, Platelet Count 366, Mean Platelet Volume 10.0, Neutrophils (%) (Auto) , Lymphocytes (%) (Auto) , Monocytes (%) (Auto) , Eosinophils (%) (Auto) , Basophils (%) (Auto) , Differential Total Cells Counted 100, Neutrophils % (Manual) 89H, Lymphocytes % (Manual) 7L, Monocytes % (Manual) 4, Eosinophils % (Manual) 0, Basophils % (Manual) 0, Band Neutrophils 0, Platelet Estimate Adequate, Platelet Morphology Normal, Hypochromasia 1+, Anisocytosis 1+, Sodium Level 139, Potassium Level 4.4, Chloride Level 103, Carbon Dioxide Level 32, Anion Gap 4L, Blood Urea Nitrogen 32H, Creatinine 1.1, Estimat Glomerular Filtration Rate 55.0, Glucose Level 112H, Calcium Level 8.5 Height (Feet): 5 Height (Inches): 4.00 Weight (Pounds): 341 General Appearance: lethargic EENT: normal ENT inspection Neck: normal alignment Cardiovascular: normal peripheral pulses, normal rate, regular rhythm Respiratory/Chest: chest wall non-tender, lungs clear, normal breath sounds Abdomen: normal bowel sounds, non tender, soft Extremities: normal inspection Edema: no edema noted Arm (L), no edema noted Arm (R), no edema noted Leg (L), no edema noted Leg (R), no edema noted Pedal (L), no edema noted Pedal (R), no edema noted Generalized Neurologic: motor weakness Skin: normal pigmentation, warm/dry Assessment/Plan Problem List: (1) HTN (hypertension) ICD Codes: I10 - Essential (primary) hypertension SNOMED: 53684553 (2) Diabetes ICD Codes: E11.9 - Type 2 diabetes mellitus without complications SNOMED: 10329082 (3) Obese ICD Codes: E66.9 - Obesity, unspecified SNOMED: 825303027, 731470977 (4) CHF (congestive heart failure) ICD Codes: I50.9 - Heart failure, unspecified SNOMED: 24278497 (5) Dyspnea ICD Codes: R06.00 - Dyspnea, unspecified SNOMED: 365827813 (6) Pneumonia due to COVID-19 virus ICD Codes: U07.1 - COVID-19; J12.82 - Pneumonia due to coronavirus disease 2019 SNOMED: 821262745460352060 (7) Respiratory distress ICD Codes: R06.03 - Acute respiratory distress SNOMED: 648282182 (8) Hypoxia ICD Codes: R09.02 - Hypoxemia SNOMED: 528028283 (9) COVID-19 ICD Codes: U07.1 - COVID-19 SNOMED: 577206726 Status: unchanged Assessment/Plan: o2 pum tx abx bp bs control cardio f/u cbc bmp am Dawood Mason DO Apr 11, 2020 10:01
--- NOTE | 2020-04-11 10:09 | Pulmonology Progress Note ---
Subjective ROS Limited/Unobtainable: No Interval Events: now on NRB Constitutional: Reports: other - feels better HEENT: Repors: no symptoms Respiratory: Reports: no symptoms Cardiovascular: Reports: no symptoms Gastrointestinal/Abdominal: Reports: no symptoms Allergies: Coded Allergies: No Known Allergies (Unverified , 04/09/20) All Systems: reviewed and negative except above Objective Last 24 Hour Vital Signs Date Time Temp Pulse Resp B/P (MAP) Pulse Ox O2 Delivery O2 Flow Rate FiO2 04/11/20 06:56 99.0 04/11/20 06:15 99.0 04/11/20 05:30 100.9 04/11/20 03:55 99.7 106 36 135/85 (102) 99 04/11/20 03:37 100 04/11/20 00:00 99.3 106 32 141/67 (91) 100 04/11/20 00:00 111 04/10/20 22:40 Non-Rebreather 04/10/20 21:00 Nasal Cannula 4.0 04/10/20 20:00 98.9 104 29 100/60 (73) 92 04/10/20 19:37 100 04/10/20 16:00 91 04/10/20 16:00 97.1 69 19 94/60 (71) 97 04/10/20 12:00 86 04/10/20 12:00 97.6 69 20 100/60 (73) 97 Intake and Output 04/10/20 04/11/20 19:00 07:00 Intake Total 700 ml Output Total 200 ml Balance 500 ml Intake Oral 700 ml Output Urine Total 200 ml # Voids 3 # Bowel Movements 1 General Appearance: no acute distress HEENT: atraumatic Respiratory: lungs clear Cardiovascular: normal rate Abdomen: soft, non tender Microbiology Date/Time Source Procedure Growth Status 04/09/20 14:45 Urine,Clean Catch Urine Culture - Final Mixed Urogenital Contaminants Complete 04/09/20 13:30 Nasopharynx SARS-CoV-2 RdRp Gene Assay - Final Complete 04/09/20 13:30 Blood Blood Culture - Preliminary NO GROWTH AFTER 24 HOURS Resulted 04/09/20 13:15 Blood Blood Culture - Preliminary NO GROWTH AFTER 24 HOURS Resulted Laboratory Tests 04/11/20 07:41: White Blood Count 8.0#, Red Blood Count 4.76, Hemoglobin 11.2L, Hematocrit 39.5, Mean Corpuscular Volume 83, Mean Corpuscular Hemoglobin 23.6L, Mean Corpuscular Hemoglobin Concent 28.4L, Red Cell Distribution Width 15.0H, Platelet Count 366, Mean Platelet Volume 10.0, Neutrophils (%) (Auto) , Lymphocytes (%) (Auto) , Monocytes (%) (Auto) , Eosinophils (%) (Auto) , Basophils (%) (Auto) , Differential Total Cells Counted 100, Neutrophils % (Manual) 89H, Lymphocytes % (Manual) 7L, Monocytes % (Manual) 4, Eosinophils % (Manual) 0, Basophils % (Manual) 0, Band Neutrophils 0, Platelet Estimate Adequate, Platelet Morphology Normal, Hypochromasia 1+, Anisocytosis 1+, Sodium Level 139, Potassium Level 4.4, Chloride Level 103, Carbon Dioxide Level 32, Anion Gap 4L, Blood Urea Nitrogen 32H, Creatinine 1.1, Estimat Glomerular Filtration Rate 55.0, Glucose Level 112H, Calcium Level 8.5 Current Medications Medications (Trade) Dose Ordered Sig/Arturo Route PRN Reason Start Time Stop Time Status Last Admin Dose Admin Acetaminophen (Tylenol) 650 mg Q4H PRN ORAL Temp >100.5 04/11/20 05:30 05/11/20 05:29 04/11/20 05:45 Azithromycin 500 mg/Dextrose 275 ml @ 275 mls/hr Q24HRS IV 04/10/20 09:00 04/16/20 09:59 04/11/20 08:24 Barium Sulfate (Varibar Honey) 250 ml NOW PRN MC RAD 04/09/20 19:15 04/12/20 19:03 Barium Sulfate (Varibar [place]) 240 ml NOW PRN MC RAD 04/09/20 19:15 04/12/20 19:03 Barium Sulfate (Varibar Pudding) 230 ml NOW PRN MC RAD 04/09/20 19:15 04/12/20 19:03 Barium Sulfate (Varibar Thin Liquid powder) 148 gm NOW PRN MC RAD 04/09/20 19:15 04/12/20 19:03 Ceftriaxone Sodium 1 gm/ Dextrose 55 ml @ 110 mls/hr Q24H IVPB 04/10/20 09:00 04/17/20 08:59 04/11/20 08:24 Dexamethasone Sodium Phosphate (Decadron 10mg/ ml Inj) 6 mg DAILY IV 04/10/20 09:00 04/18/20 09:01 04/11/20 08:24 Dextrose/Sodium Chloride 1,000 ml @ 60 mls/hr [id number] IV 04/09/20 18:15 05/09/20 18:14 04/11/20 03:49 Enoxaparin Sodium (Lovenox) 40 mg DAILY SUBQ 04/10/20 09:00 07/09/20 08:59 04/11/20 08:27 Guaifenesin/ Dextromethorphan (Robitussin DM Syrup) 15 ml Q6H PRN ORAL For Cough 04/10/20 19:00 07/09/20 18:59 04/10/20 19:43 Morphine Sulfate (Morphine Sulfate) 2 mg Q4H PRN IVP For Pain 04/09/20 18:15 04/16/20 18:14 04/11/20 00:05 Assessment/Plan Assessment/Plan 1. COVID-19 pneumonia -We will continue steroids and broad-spectrum antibiotics -Defer use of remdesivir to ID -pt desaturated on NC yesterday; now on NRB, will wean down today 2. Elevated inflammatory markers -continue Lovenox for DVT prophylaxis - Venous duplex neg for DVT (04/10) 3. GIANNA -IV fluids -Management per primary MD 4. Diabetes mellitus with hyperglycemia -Patient reports taking Metformin at home 5. Lactic acidemia - per primary MD 6. Hypocalcemia - per primary MD 7. Transaminitis, likely secondary to #1 - monitor AST, ALT 8. Elevated troponin -Serial troponin 9. New onset fever - Xyxh=937.9 - no leukocytosis - monitor temp The care for this patient was discussed with my supervising physician. Time spent for this case was approximately 31 minutes. Vitaly Mcginnis Apr 11, 2020 10:09
--- NOTE | 2020-04-11 11:15 | Infectious Diseases Prog Note ---
Assessment/Plan Assessment/Plan antibiotics : ceftriaxone, azithromycin A 1. covid 19 pneumonia on 15 liters O2 with 96 % saturation 2. diabetes mellitus 3. obesity P 1. start remdesivir 2. continue dexamethasone day 3 3. d/c ceftriaxone, azithromycin 4. continue isolation Subjective ROS Limited/Unobtainable: Yes Allergies: Coded Allergies: No Known Allergies (Unverified , 04/09/20) Objective Last 24 Hour Vital Signs Date Time Temp Pulse Resp B/P (MAP) Pulse Ox O2 Delivery O2 Flow Rate FiO2 04/11/20 09:00 Non-Rebreather 04/11/20 08:00 109 04/11/20 08:00 98.5 114 22 99/66 (77) 96 04/11/20 06:56 99.0 04/11/20 06:15 99.0 04/11/20 05:30 100.9 04/11/20 03:55 99.7 106 36 135/85 (102) 99 04/11/20 03:37 100 04/11/20 00:00 99.3 106 32 141/67 (91) 100 04/11/20 00:00 111 04/10/20 22:40 Non-Rebreather 04/10/20 21:00 Nasal Cannula 4.0 04/10/20 20:00 98.9 104 29 100/60 (73) 92 04/10/20 19:37 100 04/10/20 16:00 91 04/10/20 16:00 97.1 69 19 94/60 (71) 97 04/10/20 12:00 86 04/10/20 12:00 97.6 69 20 100/60 (73) 97 Height (Feet): 5 Height (Inches): 4.00 Weight (Pounds): 341 Microbiology Date/Time Source Procedure Growth Status 04/09/20 14:45 Urine,Clean Catch Urine Culture - Final Mixed Urogenital Contaminants Complete 04/09/20 13:30 Nasopharynx SARS-CoV-2 RdRp Gene Assay - Final Complete 04/09/20 13:30 Blood Blood Culture - Preliminary NO GROWTH AFTER 24 HOURS Resulted 04/09/20 13:15 Blood Blood Culture - Preliminary NO GROWTH AFTER 24 HOURS Resulted Laboratory Tests Test 04/11/20 07:41 White Blood Count 8.0 K/UL (4.8-10.8) # Red Blood Count 4.76 M/UL (4.20-5.40) Hemoglobin 11.2 G/DL (12.0-16.0) L Hematocrit 39.5 % (37.0-47.0) Mean Corpuscular Volume 83 FL (80-99) Mean Corpuscular Hemoglobin 23.6 PG (27.0-31.0) L Mean Corpuscular Hemoglobin Concent 28.4 G/DL (32.0-36.0) L Red Cell Distribution Width 15.0 % (11.6-14.8) H Platelet Count 366 K/UL (150-450) Mean Platelet Volume 10.0 FL (6.5-10.1) Neutrophils (%) (Auto) % (45.0-75.0) Lymphocytes (%) (Auto) % (20.0-45.0) Monocytes (%) (Auto) % (1.0-10.0) Eosinophils (%) (Auto) % (0.0-3.0) Basophils (%) (Auto) % (0.0-2.0) Differential Total Cells Counted 100 Neutrophils % (Manual) 89 % (45-75) H Lymphocytes % (Manual) 7 % (20-45) L Monocytes % (Manual) 4 % (1-10) Eosinophils % (Manual) 0 % (0-3) Basophils % (Manual) 0 % (0-2) Band Neutrophils 0 % (0-8) Platelet Estimate Adequate Platelet Morphology Normal Hypochromasia 1+ Anisocytosis 1+ Sodium Level 139 MMOL/L (136-145) Potassium Level 4.4 MMOL/L (3.5-5.1) Chloride Level 103 MMOL/L (98-107) Carbon Dioxide Level 32 MMOL/L (21-32) Anion Gap 4 mmol/L (5-15) L Blood Urea Nitrogen 32 mg/dL (7-18) H Creatinine 1.1 MG/DL (0.55-1.30) Estimat Glomerular Filtration Rate 55.0 mL/min (>60) Glucose Level 112 MG/DL (74-106) H Calcium Level 8.5 MG/DL (8.5-10.1) Current Medications Medications (Trade) Dose Ordered Sig/Arturo Route PRN Reason Start Time Stop Time Status Last Admin Dose Admin Acetaminophen (Tylenol) 650 mg Q4H PRN ORAL Temp >100.5 04/11/20 05:30 05/11/20 05:29 04/11/20 05:45 Azithromycin 500 mg/Dextrose 275 ml @ 275 mls/hr Q24HRS IV 04/10/20 09:00 04/16/20 09:59 04/11/20 08:24 Barium Sulfate (Varibar Honey) 250 ml NOW PRN MC RAD 04/09/20 19:15 04/12/20 19:03 Barium Sulfate (Varibar [place]) 240 ml NOW PRN MC RAD 04/09/20 19:15 04/12/20 19:03 Barium Sulfate (Varibar Pudding) 230 ml NOW PRN MC RAD 04/09/20 19:15 04/12/20 19:03 Barium Sulfate (Varibar Thin Liquid powder) 148 gm NOW PRN MC RAD 04/09/20 19:15 04/12/20 19:03 Ceftriaxone Sodium 1 gm/ Dextrose 55 ml @ 110 mls/hr Q24H IVPB 04/10/20 09:00 04/17/20 08:59 04/11/20 08:24 Dexamethasone Sodium Phosphate (Decadron 10mg/ ml Inj) 6 mg DAILY IV 04/10/20 09:00 04/18/20 09:01 04/11/20 08:24 Dextrose/Sodium Chloride 1,000 ml @ 60 mls/hr [id number] IV 04/09/20 18:15 05/09/20 18:14 04/11/20 03:49 Enoxaparin Sodium (Lovenox) 40 mg DAILY SUBQ 04/10/20 09:00 07/09/20 08:59 04/11/20 08:27 Guaifenesin/ Dextromethorphan (Robitussin DM Syrup) 15 ml Q6H PRN ORAL For Cough 04/10/20 19:00 07/09/20 18:59 04/10/20 19:43 Morphine Sulfate (Morphine Sulfate) 2 mg Q4H PRN IVP For Pain 04/09/20 18:15 04/16/20 18:14 04/11/20 00:05 Leo Lucero MD Apr 11, 2020 11:15
[2020-04-11 11:41] LABS: ALANINE AMINOTRANSFERASE 70 U/L (12-78); ASPARTATE AMINO TRANSFERASE 92 U/L (15-37)
[2020-04-11 12:00] VITALS: BP 113/73
--- NOTE | 2020-04-11 13:37 | NUR ---
NURSE NOTES: Consent for stress test obtained by Dr. Rodriguez and procedure performed. No complications observed during test. Patient in stable condition after test. Will continue to monitor for any changes in patient's condition. Addendum: 04/11/20 at 1925 by Connie Love RN WRONG PT
--- NOTE | 2020-04-11 13:56 | Cardiac Electrophysiology PN ---
Subjective Subjective [id number] Objective Last 24 Hour Vital Signs Date Time Temp Pulse Resp B/P (MAP) Pulse Ox O2 Delivery O2 Flow Rate FiO2 04/11/20 12:00 95 04/11/20 12:00 98.5 99 22 113/73 (86) 98 04/11/20 09:00 Non-Rebreather 04/11/20 08:00 109 04/11/20 08:00 98.5 114 22 99/66 (77) 96 04/11/20 06:56 99.0 04/11/20 06:15 99.0 04/11/20 05:30 100.9 04/11/20 03:55 99.7 106 36 135/85 (102) 99 04/11/20 03:37 100 04/11/20 00:00 99.3 106 32 141/67 (91) 100 04/11/20 00:00 111 04/10/20 22:40 Non-Rebreather 04/10/20 21:00 Nasal Cannula 4.0 04/10/20 20:00 98.9 104 29 100/60 (73) 92 04/10/20 19:37 100 04/10/20 16:00 91 04/10/20 16:00 97.1 69 19 94/60 (71) 97 Intake and Output 04/10/20 04/11/20 19:00 07:00 Intake Total 700 ml Output Total 200 ml Balance 500 ml Intake Oral 700 ml Output Urine Total 200 ml # Voids 3 # Bowel Movements 1 Laboratory Tests Test 04/11/20 07:41 04/11/20 07:49 White Blood Count 8.0 K/UL (4.8-10.8) # Red Blood Count 4.76 M/UL (4.20-5.40) Hemoglobin 11.2 G/DL (12.0-16.0) L Hematocrit 39.5 % (37.0-47.0) Mean Corpuscular Volume 83 FL (80-99) Mean Corpuscular Hemoglobin 23.6 PG (27.0-31.0) L Mean Corpuscular Hemoglobin Concent 28.4 G/DL (32.0-36.0) L Red Cell Distribution Width 15.0 % (11.6-14.8) H Platelet Count 366 K/UL (150-450) Mean Platelet Volume 10.0 FL (6.5-10.1) Neutrophils (%) (Auto) % (45.0-75.0) Lymphocytes (%) (Auto) % (20.0-45.0) Monocytes (%) (Auto) % (1.0-10.0) Eosinophils (%) (Auto) % (0.0-3.0) Basophils (%) (Auto) % (0.0-2.0) Differential Total Cells Counted 100 Neutrophils % (Manual) 89 % (45-75) H Lymphocytes % (Manual) 7 % (20-45) L Monocytes % (Manual) 4 % (1-10) Eosinophils % (Manual) 0 % (0-3) Basophils % (Manual) 0 % (0-2) Band Neutrophils 0 % (0-8) Platelet Estimate Adequate Platelet Morphology Normal Hypochromasia 1+ Anisocytosis 1+ Sodium Level 139 MMOL/L (136-145) Potassium Level 4.4 MMOL/L (3.5-5.1) Chloride Level 103 MMOL/L (98-107) Carbon Dioxide Level 32 MMOL/L (21-32) Anion Gap 4 mmol/L (5-15) L Blood Urea Nitrogen 32 mg/dL (7-18) H Creatinine 1.1 MG/DL (0.55-1.30) Estimat Glomerular Filtration Rate 55.0 mL/min (>60) Glucose Level 112 MG/DL (74-106) H Calcium Level 8.5 MG/DL (8.5-10.1) Aspartate Amino Transf (AST/SGOT) 92 U/L (15-37) H Alanine Aminotransferase (ALT/SGPT) 70 U/L (12-78) Microbiology Date/Time Source Procedure Growth Status 04/09/20 14:45 Urine,Clean Catch Urine Culture - Final Mixed Urogenital Contaminants Complete 04/09/20 13:30 Nasopharynx SARS-CoV-2 RdRp Gene Assay - Final Complete 04/09/20 13:30 Blood Blood Culture - Preliminary NO GROWTH AFTER 24 HOURS Resulted 04/09/20 13:15 Blood Blood Culture - Preliminary NO GROWTH AFTER 24 HOURS Resulted Dave Tijerina MD Apr 11, 2020 13:56
--- NOTE | 2020-04-11 15:14 | Consultation ---
DATE OF CONSULTATION: 04/11/2020 CARDIOLOGY CONSULTATION REFERRING PHYSICIAN: Dawood Mason D.O. REASON FOR THE CONSULTATION: Shortness of breath. HISTORY OF PRESENT ILLNESS: The patient is a 39-year-old lady with hypertension, diabetes, and morbid obesity, who presented to the emergency room for increasing shortness of breath. The patient was tested positive for COVID 7 days ago. The patient has became more short of breath and has worsening cough. When the paramedics arrived, the patient's saturation was 84% on room air and was put on 4 L nasal cannula. The patient was then admitted. Initially, she was tachycardia, heart rate of 136 and blood pressure was 134/100. The patient was put on COVID isolation. The patient was on 2 L nasal cannula; however, saturation got worse and now is on 100% nonrebreather. REVIEW OF SYSTEMS: Negative other than what was mentioned in history of present illness. PAST MEDICAL HISTORY: As mentioned above. FAMILY HISTORY: Noncontributory. SOCIAL HISTORY: She lives at home. Does not drink alcohol or do drugs. PHYSICAL EXAMINATION: VITAL SIGNS: Blood pressure of 113/73, pulse is 99, respirations are 18, and temperature 98.5, maximum temperature is 100.9. HEAD AND NECK: No JVD. LUNGS: Decreased breath sounds. CARDIOVASCULAR: Tachycardic S1 and S2 with no gallop. ABDOMEN: Obese. EXTREMITIES: 1+ pitting edema. LABORATORY AND DIAGNOSTIC DATA: Labs show white count of 8, hemoglobin of 11.2, hematocrit 39.5, platelet count was 366. Sodium 139, potassium 4.4, BUN of 32, creatinine 1.1, and glucose of 112. Lactic acid is 2.8. Her BNP was 9293 and troponin was elevated at 0.153. ASSESSMENT AND PLAN: 1. Elevated troponin. This could be due to COVID myocarditis. The EKG does not show any acute ST-T wave abnormality. We will repeat the EKG and get an echocardiogram for further evaluation. In the meantime, put the patient on low-dose aspirin and beta-faina. 2. Congestive heart failure with BNP of almost 10,000. We will get an echocardiogram. 3. COVID pneumonia and respiratory failure, on 100% nonrebreather facemask at this time. Further evaluation by Dr. Carrero. On steroid and broad-spectrum antibiotic. 4. Diabetes. 5. Lactic acidemia. 6. Fever. Thank you very much for allowing me to participate in the care of this patient. Please do not hesitate to contact me for any questions regarding my evaluation. Dave Tijerina M.D. DR: ALE JOB#: [id number] CC:
[2020-04-11 16:00] VITALS: BP 106/66
[2020-04-11] MEDS ORDERED: Loading Dose:Remdesivir 200mg/NS 210ml IV SCH ×2 (16:00)
[2020-04-11] MEDS ORDERED: Tubing IV Secondary IV ONE (17:52)
--- NOTE | 2020-04-11 19:25 | NUR ---
NURSE HAND-OFF REPORT: Important Events on Shift:COVID MONITORING Patient Status: stable Diet: reg Pending Orders: n/a Pending Results/Labs:n/a Pending MD notification:n/a Latest Vital Signs: Temperature 98.1 , Pulse 97 , B/P 106 /66 , Respiratory Rate 22 , O2 SAT 99 , Nasal Cannula, O2 Flow Rate 4.0 . Vital Sign Comment: stable EKG Rhythm: Sinus Tachycardia Rhythm change?: N MD Notified?: - MD Response: Latest Velasquez Fall Score: 45 Fall Risk: High Risk Safety Measures: Call light Within Reach, Bed Alarm Zone 1, Side Rails Side Rails x2, Bed position Low and Locked. Fall Precautions: Yellow Socks Yellow Gown Door Sign Patient Fall Education Report given to Brenda RN.
--- NOTE | 2020-04-11 19:35 | NUR ---
NURSE NOTES: received report from mitchell yoo. patient is awake and oriented. on non-rebreather mask at 15lpm sating 97-99%. no complaints of shortness of breath at rest. denies any pain or discomfort at the moment. iv access on the right ac, running d5 1/2 ns @ 60 ml/hr. iv patent and intact. skein washer in placed. fredo states" tried to wean off to venturi mask but the patient desaturated to 90-92%, put back non-rebreather mask sating 97-98%" reiterated to call and ask for assistance to prevent fall or injury. patient is covid positive. maintained isolation precautions as ordered. bed locked and in lowest position. call light and light button within easy reach. bed alarm on. will continue plan of care.
[2020-04-11 20:00] VITALS: BP 128/80
[2020-04-11] MEDS: Metoprolol Tartrate 12.5mg TAB ORAL SCH (20:54)
[2020-04-12] VITALS: BP 127/80
--- NOTE | 2020-04-12 01:00 | NUR ---
NURSE NOTES: with an order to wean off to venturi mask. paged RT reji. per reji " patient desaturated @ 80's with venturi mask". patient is still on non- rebreather mask sating 97-100%.
[2020-04-12 04:00] VITALS: BP 123/72
[2020-04-12 05:00] LABS: ALBUMIN 2.4 G/DL (3.4-5.0); ALBUMIN/GLOBULIN RATIO 0.4 (1.0-2.7); BASOPHILS % (AUTO) 0.6 % (0.0-2.0); BILIRUBIN,DIRECT 0.2 MG/DL (0.0-0.3); BILIRUBIN,TOTAL 0.2 MG/DL (0.2-1.0); CALCIUM 8.9 MG/DL (8.5-10.1); CREATININE 1.2 MG/DL (0.55-1.30); HEMATOCRIT 40.9 % (37.0-47.0); HEMOGLOBIN 11.4 G/DL (12.0-16.0); LYMPHOCYTES % (AUTO) 9.8 % (20.0-45.0); MEAN CORPUSCULAR VOLUME 84 FL (80-99); MONOCYTES % (AUTO) 7.8 % (1.0-10.0); NEUTROPHILS % (AUTO) 81.8 % (45.0-75.0); PLATELET COUNT 348 K/UL (150-450); POTASSIUM 5.3 MMOL/L (3.5-5.1); RED BLOOD COUNT 4.86 M/UL (4.20-5.40); RED CELL DISTRIBUTION WIDTH 15.6 % (11.6-14.8); WHITE BLOOD COUNT 5.6 K/UL (4.8-10.8)
--- NOTE | 2020-04-12 05:00 | NUR ---
NURSE NOTES: with an order to obtain ecg under dr. perla due to CHF. ecg is done showing normal sinus rhythm left posterior fascicular block. copy of the ecg result attached to the patient's chart.
--- NOTE | 2020-04-12 07:20 | NUR ---
NURSE HAND-OFF: Important Events on Shift: RT(TROY)TRIED TO WEAN OFF TO VENTURI MASK PATIENT DESATURATED TO 80'S.CURRENTLY ON NON-REBREATHER MASK SATING 97-100%. NO EPISODE OF SHORTNESS OF BREATH Patient Status:STABLE Diet: REGULAR Pending Orders: Pending Results/Labs: Pending MD notification: Latest Vital Signs: Temperature 97.7 , Pulse 88 , B/P 123 /72 , Respiratory Rate 24 , O2 SAT 98 , Nasal Cannula, O2 Flow Rate 4.0 . Vital Sign Comment: Latest Velasquez Fall Score: 45 Fall Risk: High Risk Safety Measures: Call light Within Reach, Bed Alarm Zone 1, Side Rails Side Rails x2, Bed position Low and Locked. Fall Precautions: Yellow Socks Yellow Gown Door Sign Patient Fall Education Report given to SEGUNDO GARCIA.
--- NOTE | 2020-04-12 07:30 | NUR ---
NURSE NOTES: Receive a report from SEGUNDO Loco.
--- NOTE | 2020-04-12 07:40 | NUR ---
NURSE NOTES: Pt is awake and alert, [id number]'s position. Noted SOB during movement. On non-breather mask 15L spo2 99%. Intermittent coughing with sputum. Will provide medication as ordered. IV is running via right hand as ordered. On amaya-wick for urination. Bilateral non-pitting edema with rough skin on L/E. Call light within reach. Will continue to monitor.
[2020-04-12 08:00] VITALS: BP 112/65
--- NOTE | 2020-04-12 08:00 | NUR ---
NURSE NOTES: Seen by PT. Pt is able to sit-up in bed side with assist but noted SOB. Spo2 remains 97-99% with non-breather mask. Pt will be followed up next schedule. Will continue to monitor.
[2020-04-12] MEDS: Aspirin EC 81mg tab ORAL SCH (09:08)
[2020-04-12] MEDS: Metoprolol Tartrate 12.5mg TAB ORAL SCH ×2 (09:08→21:00)
[2020-04-12] MEDS: dexAMETHasone 10mg/ml Inj IV SCH (09:08)
[2020-04-12] MEDS: Enoxaparin 40mg Inj SUBQ SCH (09:09)
[2020-04-12] MEDS: guaiFENesin /DM 10ml syrup ORAL PRN (09:22)
--- NOTE | 2020-04-12 09:30 | Infectious Diseases Prog Note ---
Assessment/Plan Assessment/Plan A 1. COVID19 pneumonia 2. diabetes mellitus 3. obesity 4. Hypoxemia P 1. Continue remdesivir 2. continue dexamethasone day 4 3. continue isolation Subjective ROS Limited/Unobtainable: Yes Constitutional: Reports: anorexia Respiratory: Reports: shortness of breath, dry cough Allergies: Coded Allergies: No Known Allergies (Unverified , 04/09/20) Objective Last 24 Hour Vital Signs Date Time Temp Pulse Resp B/P (MAP) Pulse Ox O2 Delivery O2 Flow Rate FiO2 04/12/20 09:08 86 112/65 04/12/20 08:00 98.4 90 24 112/65 (81) 98 04/12/20 08:00 86 04/12/20 04:00 88 04/12/20 04:00 97.7 91 24 123/72 (89) 98 04/12/20 00:00 97.9 97 25 127/80 (96) 99 04/12/20 00:00 97 04/11/20 21:00 Non-Rebreather 04/11/20 20:54 95 130/76 04/11/20 20:00 98 04/11/20 20:00 97.5 96 24 128/80 (96) 96 04/11/20 16:00 98.1 97 22 106/66 (79) 99 04/11/20 16:00 96 04/11/20 12:00 95 04/11/20 12:00 98.5 99 22 113/73 (86) 98 Height (Feet): 5 Height (Inches): 4.00 Weight (Pounds): 341 HEENT: mucous membranes moist Respiratory/Chest: other - oxygen by NRB mask Cardiovascular: normal rate Abdomen: soft, non tender Skin: other - stasis dematis of legs Microbiology Date/Time Source Procedure Growth Status 04/09/20 14:45 Urine,Clean Catch Urine Culture - Final Mixed Urogenital Contaminants Complete 04/09/20 13:30 Nasopharynx SARS-CoV-2 RdRp Gene Assay - Final Complete 04/09/20 13:30 Blood Blood Culture - Preliminary NO GROWTH AFTER 48 HOURS Resulted 04/09/20 13:15 Blood Blood Culture - Preliminary NO GROWTH AFTER 48 HOURS Resulted Laboratory Tests Test 04/11/20 16:25 04/12/20 02:50 Troponin I 0.040 ng/mL (0.000-0.056) 0.050 ng/mL (0.000-0.056) White Blood Count 5.6 K/UL (4.8-10.8) Red Blood Count 4.86 M/UL (4.20-5.40) Hemoglobin 11.4 G/DL (12.0-16.0) L Hematocrit 40.9 % (37.0-47.0) Mean Corpuscular Volume 84 FL (80-99) Mean Corpuscular Hemoglobin 23.5 PG (27.0-31.0) L Mean Corpuscular Hemoglobin Concent 27.9 G/DL (32.0-36.0) L Red Cell Distribution Width 15.6 % (11.6-14.8) H Platelet Count 348 K/UL (150-450) Mean Platelet Volume 10.0 FL (6.5-10.1) Neutrophils (%) (Auto) 81.8 % (45.0-75.0) H Lymphocytes (%) (Auto) 9.8 % (20.0-45.0) L Monocytes (%) (Auto) 7.8 % (1.0-10.0) Eosinophils (%) (Auto) 0.0 % (0.0-3.0) Basophils (%) (Auto) 0.6 % (0.0-2.0) Sodium Level 138 MMOL/L (136-145) Potassium Level 5.3 MMOL/L (3.5-5.1) H Chloride Level 103 MMOL/L (98-107) Carbon Dioxide Level 29 MMOL/L (21-32) Anion Gap 6 mmol/L (5-15) Blood Urea Nitrogen 40 mg/dL (7-18) H Creatinine 1.2 MG/DL (0.55-1.30) Estimat Glomerular Filtration Rate 49.8 mL/min (>60) Glucose Level 121 MG/DL (74-106) H Calcium Level 8.9 MG/DL (8.5-10.1) Total Bilirubin 0.2 MG/DL (0.2-1.0) Direct Bilirubin 0.2 MG/DL (0.0-0.3) Aspartate Amino Transf (AST/SGOT) 70 U/L (15-37) H Alanine Aminotransferase (ALT/SGPT) 64 U/L (12-78) Alkaline Phosphatase 103 U/L (46-116) Pro-B-Type Natriuretic Peptide 5369 pg/mL (0-125) H Total Protein 8.5 G/DL (6.4-8.2) H Albumin 2.4 G/DL (3.4-5.0) L Globulin 6.1 g/dL Albumin/Globulin Ratio 0.4 (1.0-2.7) L Current Medications Medications (Trade) Dose Ordered Sig/Arturo Route PRN Reason Start Time Stop Time Status Last Admin Dose Admin Acetaminophen (Tylenol) 650 mg Q4H PRN ORAL Temp >100.5 04/11/20 05:30 05/11/20 05:29 04/11/20 05:45 Aspirin (Ecotrin) 81 mg DAILY ORAL 04/12/20 09:00 05/27/20 08:59 04/12/20 09:08 Barium Sulfate (Varibar Honey) 250 ml NOW PRN MC RAD 04/09/20 19:15 04/12/20 19:03 Barium Sulfate (Varibar [place]) 240 ml NOW PRN MC RAD 04/09/20 19:15 04/12/20 19:03 Barium Sulfate (Varibar Pudding) 230 ml NOW PRN MC RAD 04/09/20 19:15 04/12/20 19:03 Barium Sulfate (Varibar Thin Liquid powder) 148 gm NOW PRN MC RAD 04/09/20 19:15 04/12/20 19:03 Dexamethasone Sodium Phosphate (Decadron 10mg/ ml Inj) 6 mg DAILY IV 04/10/20 09:00 04/18/20 09:01 04/12/20 09:08 Dextrose/Sodium Chloride 1,000 ml @ 60 mls/hr [id number] IV 04/09/20 18:15 05/09/20 18:14 04/11/20 20:54 Enoxaparin Sodium (Lovenox) 40 mg DAILY SUBQ 04/10/20 09:00 07/09/20 08:59 04/12/20 09:09 Guaifenesin/ Dextromethorphan (Robitussin DM Syrup) 15 ml Q6H PRN ORAL For Cough 04/10/20 19:00 07/09/20 18:59 04/12/20 09:22 Metoprolol Tartrate (Lopressor) 12.5 mg Q12HR ORAL 04/11/20 21:00 07/10/20 20:59 04/12/20 09:08 Morphine Sulfate (Morphine Sulfate) 2 mg Q4H PRN IVP For Pain 04/09/20 18:15 04/16/20 18:14 04/11/20 00:05 Remdesivir 100 mg/ Sodium Chloride 250 ml @ 250 mls/hr Q24H IV 04/12/20 16:00 04/15/20 16:59 Usman Gant MD Apr 12, 2020 09:30
--- NOTE | 2020-04-12 09:45 | NUR ---
P.T Note: Pt. stable and cleared by RN. P.T evaluation completed and tx initiated. Pt received on espinoza position on breather mask saturating at 99-97%. Pt is alert, O x 4 and cooperative. Pt reports c/o mild chest pain aggravated when coughing. ADL/functional mobility participation and performance are limited by body habitus , generalized weakness, quick onset of fatigue and visible mild SOB with minimal exertion however pt is highly motivated and participative in the P.T eval/tx process. Pt currently requires MOD A X 2 bed mobilities and transfers. Pt able to partially stand with MOD A X 2 and FWW for 10 seconds x 2 attempts. O2 sat remains 96-98% with continues breather mask then dropped to 84% when bed was position on trendelenburg to scoot patient up return to center of the bed then recovered back up to 99-98% after reposition for comfort and back to Espinoza position. P.T will progress activity as tolerated. Recommend SNF for intensive rehab VS home P.T depending on progress.
--- NOTE | 2020-04-12 10:15 | NUR ---
NURSE NOTES: Update Dr. Mason for pt's conditions including K:5.3. Will recheck K level stat. Order noted and carried out.
--- NOTE | 2020-04-12 10:26 | General Progress Note ---
Subjective Constitutional: Reports: weakness Allergies: Coded Allergies: No Known Allergies (Unverified , 04/09/20) All Systems: reviewed and negative except above Subjective o2 mask sleepy Objective Last 24 Hour Vital Signs Date Time Temp Pulse Resp B/P (MAP) Pulse Ox O2 Delivery O2 Flow Rate FiO2 04/12/20 09:08 86 112/65 04/12/20 08:00 98.4 90 24 112/65 (81) 98 04/12/20 08:00 86 04/12/20 04:00 88 04/12/20 04:00 97.7 91 24 123/72 (89) 98 04/12/20 00:00 97.9 97 25 127/80 (96) 99 04/12/20 00:00 97 04/11/20 21:00 Non-Rebreather 04/11/20 20:54 95 130/76 04/11/20 20:00 98 04/11/20 20:00 97.5 96 24 128/80 (96) 96 04/11/20 16:00 98.1 97 22 106/66 (79) 99 04/11/20 16:00 96 04/11/20 12:00 95 04/11/20 12:00 98.5 99 22 113/73 (86) 98 Intake and Output 04/11/20 04/12/20 19:00 07:00 Intake Total 178 ml 860 ml Balance 178 ml 860 ml Intake Oral 118 ml 200 ml IV Total 60 ml 660 ml # Voids 1 3 Laboratory Tests 04/11/20 16:25: Troponin I 0.040 04/12/20 02:50: Troponin I 0.050, White Blood Count 5.6, Red Blood Count 4.86, Hemoglobin 11.4L, Hematocrit 40.9, Mean Corpuscular Volume 84, Mean Corpuscular Hemoglobin 23.5L, Mean Corpuscular Hemoglobin Concent 27.9L, Red Cell Distribution Width 15.6H, Platelet Count 348, Mean Platelet Volume 10.0, Neutrophils (%) (Auto) 81.8H, Lymphocytes (%) (Auto) 9.8L, Monocytes (%) (Auto) 7.8, Eosinophils (%) (Auto) 0.0, Basophils (%) (Auto) 0.6, Sodium Level 138, Potassium Level 5.3H, Chloride Level 103, Carbon Dioxide Level 29, Anion Gap 6, Blood Urea Nitrogen 40H, Creatinine 1.2, Estimat Glomerular Filtration Rate 49.8, Glucose Level 121H, Calcium Level 8.9, Total Bilirubin 0.2, Direct Bilirubin 0.2, Aspartate Amino Transf (AST/SGOT) 70H, Alanine Aminotransferase (ALT/SGPT) 64, Alkaline Phosphatase 103, Pro-B-Type Natriuretic Peptide 5369H, Total Protein 8.5H, Albumin 2.4L, Globulin 6.1, Albumin/Globulin Ratio 0.4L Height (Feet): 5 Height (Inches): 4.00 Weight (Pounds): 341 General Appearance: lethargic EENT: normal ENT inspection Neck: normal alignment Cardiovascular: normal peripheral pulses, normal rate, regular rhythm Respiratory/Chest: chest wall non-tender, lungs clear, normal breath sounds Abdomen: normal bowel sounds, non tender, soft Extremities: normal inspection Edema: no edema noted Arm (L), no edema noted Arm (R), no edema noted Leg (L), no edema noted Leg (R), no edema noted Pedal (L), no edema noted Pedal (R), no edema noted Generalized Neurologic: motor weakness Skin: normal pigmentation, warm/dry Assessment/Plan Problem List: (1) HTN (hypertension) ICD Codes: I10 - Essential (primary) hypertension SNOMED: 78980397 (2) Diabetes ICD Codes: E11.9 - Type 2 diabetes mellitus without complications SNOMED: 56961647 (3) Obese ICD Codes: E66.9 - Obesity, unspecified SNOMED: 149520221, 903665451 (4) CHF (congestive heart failure) ICD Codes: I50.9 - Heart failure, unspecified SNOMED: 25983079 (5) Dyspnea ICD Codes: R06.00 - Dyspnea, unspecified SNOMED: 786408234 (6) Pneumonia due to COVID-19 virus ICD Codes: U07.1 - COVID-19; J12.82 - Pneumonia due to coronavirus disease 2019 SNOMED: 096440031580520827 (7) Respiratory distress ICD Codes: R06.03 - Acute respiratory distress SNOMED: 387225144 (8) Hypoxia ICD Codes: R09.02 - Hypoxemia SNOMED: 074902101 (9) COVID-19 ICD Codes: U07.1 - COVID-19 SNOMED: 631283938 Status: unchanged Assessment/Plan: o2 pum tx abx bp bs control cardio f/u cbc bmp am Dawood Mason DO Apr 12, 2020 10:26
--- NOTE | 2020-04-12 10:27 | Cardiac Electrophysiology PN ---
Assessment/Plan Assessment/Plan 1. Elevated troponin. This could be due to COVID myocarditis. The EKG does not show any acute ST-T wave abnormality. Echocardiogram EF 65% . Continue aspirin and Lopressor. 2. Congestive heart failure with BNP of almost 10,000. EF 65%. Due to diastolic dysfunction Add Lasix 40 iv daily 3. COVID pneumonia and respiratory failure, on 100% nonrebreather facemask, steroid, Remdesevir and broad-spectrum antibiotic. Fu by Dr. Carrero. 4. Severe TR and pulmonary HTN with PAP 70s. ? COPD. FU Dr Carrero 5. Diabetes. 6. Lactic acidemia. 7. Fever. Subjective Subjective Alert in NAD on 15 L NRB FM in covid isolation. Has no appetite Objective Last 24 Hour Vital Signs Date Time Temp Pulse Resp B/P (MAP) Pulse Ox O2 Delivery O2 Flow Rate FiO2 04/12/20 09:08 86 112/65 04/12/20 08:00 98.4 90 24 112/65 (81) 98 04/12/20 08:00 86 04/12/20 04:00 88 04/12/20 04:00 97.7 91 24 123/72 (89) 98 04/12/20 00:00 97.9 97 25 127/80 (96) 99 04/12/20 00:00 97 04/11/20 21:00 Non-Rebreather 04/11/20 20:54 95 130/76 04/11/20 20:00 98 04/11/20 20:00 97.5 96 24 128/80 (96) 96 04/11/20 16:00 98.1 97 22 106/66 (79) 99 04/11/20 16:00 96 04/11/20 12:00 95 04/11/20 12:00 98.5 99 22 113/73 (86) 98 Intake and Output 04/11/20 04/12/20 19:00 07:00 Intake Total 178 ml 860 ml Balance 178 ml 860 ml Intake Oral 118 ml 200 ml IV Total 60 ml 660 ml # Voids 1 3 Laboratory Tests Test 04/11/20 16:25 04/12/20 02:50 Troponin I 0.040 ng/mL (0.000-0.056) 0.050 ng/mL (0.000-0.056) White Blood Count 5.6 K/UL (4.8-10.8) Red Blood Count 4.86 M/UL (4.20-5.40) Hemoglobin 11.4 G/DL (12.0-16.0) L Hematocrit 40.9 % (37.0-47.0) Mean Corpuscular Volume 84 FL (80-99) Mean Corpuscular Hemoglobin 23.5 PG (27.0-31.0) L Mean Corpuscular Hemoglobin Concent 27.9 G/DL (32.0-36.0) L Red Cell Distribution Width 15.6 % (11.6-14.8) H Platelet Count 348 K/UL (150-450) Mean Platelet Volume 10.0 FL (6.5-10.1) Neutrophils (%) (Auto) 81.8 % (45.0-75.0) H Lymphocytes (%) (Auto) 9.8 % (20.0-45.0) L Monocytes (%) (Auto) 7.8 % (1.0-10.0) Eosinophils (%) (Auto) 0.0 % (0.0-3.0) Basophils (%) (Auto) 0.6 % (0.0-2.0) Sodium Level 138 MMOL/L (136-145) Potassium Level 5.3 MMOL/L (3.5-5.1) H Chloride Level 103 MMOL/L (98-107) Carbon Dioxide Level 29 MMOL/L (21-32) Anion Gap 6 mmol/L (5-15) Blood Urea Nitrogen 40 mg/dL (7-18) H Creatinine 1.2 MG/DL (0.55-1.30) Estimat Glomerular Filtration Rate 49.8 mL/min (>60) Glucose Level 121 MG/DL (74-106) H Calcium Level 8.9 MG/DL (8.5-10.1) Total Bilirubin 0.2 MG/DL (0.2-1.0) Direct Bilirubin 0.2 MG/DL (0.0-0.3) Aspartate Amino Transf (AST/SGOT) 70 U/L (15-37) H Alanine Aminotransferase (ALT/SGPT) 64 U/L (12-78) Alkaline Phosphatase 103 U/L (46-116) Pro-B-Type Natriuretic Peptide 5369 pg/mL (0-125) H Total Protein 8.5 G/DL (6.4-8.2) H Albumin 2.4 G/DL (3.4-5.0) L Globulin 6.1 g/dL Albumin/Globulin Ratio 0.4 (1.0-2.7) L Microbiology Date/Time Source Procedure Growth Status 04/09/20 14:45 Urine,Clean Catch Urine Culture - Final Mixed Urogenital Contaminants Complete 04/09/20 13:30 Nasopharynx SARS-CoV-2 RdRp Gene Assay - Final Complete 04/09/20 13:30 Blood Blood Culture - Preliminary NO GROWTH AFTER 48 HOURS Resulted 04/09/20 13:15 Blood Blood Culture - Preliminary NO GROWTH AFTER 48 HOURS Resulted Objective HEAD AND NECK: No JVD. LUNGS: Decreased breath sounds. CARDIOVASCULAR: Tachycardic S1 and S2 with no gallop. ABDOMEN: Obese. EXTREMITIES: 1+ pitting edema. Dave Tijerina MD Apr 12, 2020 10:27
--- NOTE | 2020-04-12 10:45 | Pulmonology Progress Note ---
Subjective ROS Limited/Unobtainable: Yes Interval Events: now on NRB Constitutional: Reports: anorexia HEENT: Repors: no symptoms Respiratory: Reports: no symptoms Cardiovascular: Reports: no symptoms Gastrointestinal/Abdominal: Reports: no symptoms Allergies: Coded Allergies: No Known Allergies (Unverified , 04/09/20) All Systems: reviewed and negative except above Objective Last 24 Hour Vital Signs Date Time Temp Pulse Resp B/P (MAP) Pulse Ox O2 Delivery O2 Flow Rate FiO2 04/12/20 09:08 86 112/65 04/12/20 08:00 98.4 90 24 112/65 (81) 98 04/12/20 08:00 86 04/12/20 04:00 88 04/12/20 04:00 97.7 91 24 123/72 (89) 98 04/12/20 00:00 97.9 97 25 127/80 (96) 99 04/12/20 00:00 97 04/11/20 21:00 Non-Rebreather 04/11/20 20:54 95 130/76 04/11/20 20:00 98 04/11/20 20:00 97.5 96 24 128/80 (96) 96 04/11/20 16:00 98.1 97 22 106/66 (79) 99 04/11/20 16:00 96 04/11/20 12:00 95 04/11/20 12:00 98.5 99 22 113/73 (86) 98 Intake and Output 04/11/20 04/12/20 19:00 07:00 Intake Total 178 ml 860 ml Balance 178 ml 860 ml Intake Oral 118 ml 200 ml IV Total 60 ml 660 ml # Voids 1 3 General Appearance: no acute distress HEENT: atraumatic Respiratory: chest wall non-tender, inspiratory wheezing Cardiovascular: normal rate Abdomen: soft, non tender Microbiology Date/Time Source Procedure Growth Status 04/09/20 14:45 Urine,Clean Catch Urine Culture - Final Mixed Urogenital Contaminants Complete 04/09/20 13:30 Nasopharynx SARS-CoV-2 RdRp Gene Assay - Final Complete 04/09/20 13:30 Blood Blood Culture - Preliminary NO GROWTH AFTER 48 HOURS Resulted 04/09/20 13:15 Blood Blood Culture - Preliminary NO GROWTH AFTER 48 HOURS Resulted Laboratory Tests 04/11/20 16:25: Troponin I 0.040 04/12/20 02:50: Troponin I 0.050, White Blood Count 5.6, Red Blood Count 4.86, Hemoglobin 11.4L, Hematocrit 40.9, Mean Corpuscular Volume 84, Mean Corpuscular Hemoglobin 23.5L, Mean Corpuscular Hemoglobin Concent 27.9L, Red Cell Distribution Width 15.6H, Platelet Count 348, Mean Platelet Volume 10.0, Neutrophils (%) (Auto) 81.8H, Lymphocytes (%) (Auto) 9.8L, Monocytes (%) (Auto) 7.8, Eosinophils (%) (Auto) 0.0, Basophils (%) (Auto) 0.6, Sodium Level 138, Potassium Level 5.3H, Chloride Level 103, Carbon Dioxide Level 29, Anion Gap 6, Blood Urea Nitrogen 40H, Creatinine 1.2, Estimat Glomerular Filtration Rate 49.8, Glucose Level 121H, Calcium Level 8.9, Total Bilirubin 0.2, Direct Bilirubin 0.2, Aspartate Amino Transf (AST/SGOT) 70H, Alanine Aminotransferase (ALT/SGPT) 64, Alkaline Phosphatase 103, Pro-B-Type Natriuretic Peptide 5369H, Total Protein 8.5H, Albumin 2.4L, Globulin 6.1, Albumin/Globulin Ratio 0.4L 04/12/20 10:26: Potassium Level [Pending] Current Medications Medications (Trade) Dose Ordered Sig/Arturo Route PRN Reason Start Time Stop Time Status Last Admin Dose Admin Acetaminophen (Tylenol) 650 mg Q4H PRN ORAL Temp >100.5 04/11/20 05:30 05/11/20 05:29 04/11/20 05:45 Aspirin (Ecotrin) 81 mg DAILY ORAL 04/12/20 09:00 05/27/20 08:59 04/12/20 09:08 Barium Sulfate (Varibar Honey) 250 ml NOW PRN MC RAD 04/09/20 19:15 04/12/20 19:03 Barium Sulfate (Varibar [place]) 240 ml NOW PRN MC RAD 04/09/20 19:15 04/12/20 19:03 Barium Sulfate (Varibar Pudding) 230 ml NOW PRN MC RAD 04/09/20 19:15 04/12/20 19:03 Barium Sulfate (Varibar Thin Liquid powder) 148 gm NOW PRN MC RAD 04/09/20 19:15 04/12/20 19:03 Dexamethasone Sodium Phosphate (Decadron 10mg/ ml Inj) 6 mg DAILY IV 04/10/20 09:00 04/18/20 09:01 04/12/20 09:08 Dextrose/Sodium Chloride 1,000 ml @ 60 mls/hr [id number] IV 04/09/20 18:15 05/09/20 18:14 04/11/20 20:54 Enoxaparin Sodium (Lovenox) 40 mg DAILY SUBQ 04/10/20 09:00 07/09/20 08:59 04/12/20 09:09 Furosemide (Lasix) 40 mg DAILY IV 04/13/20 09:00 05/13/20 08:59 Guaifenesin/ Dextromethorphan (Robitussin DM Syrup) 15 ml Q6H PRN ORAL For Cough 04/10/20 19:00 07/09/20 18:59 04/12/20 09:22 Metoprolol Tartrate (Lopressor) 12.5 mg Q12HR ORAL 04/11/20 21:00 07/10/20 20:59 04/12/20 09:08 Morphine Sulfate (Morphine Sulfate) 2 mg Q4H PRN IVP For Pain 04/09/20 18:15 04/16/20 18:14 04/11/20 00:05 Remdesivir 100 mg/ Sodium Chloride 250 ml @ 250 mls/hr Q24H IV 04/12/20 16:00 04/15/20 16:59 Assessment/Plan Assessment/Plan Assessment/Plan Assessment/Plan 1. COVID-19 pneumonia -We will continue steroids and broad-spectrum antibiotics -Defer use of remdesivir to ID - on NRB, Sat at 99% - Albuterol PRN wheezing 2. Elevated inflammatory markers -continue Lovenox for DVT prophylaxis - Venous duplex neg for DVT (04/10) 3. GIANNA -IV fluids -Management per primary MD 4. Diabetes mellitus with hyperglycemia -Patient reports taking Metformin at home 5. Lactic acidemia - per primary MD 6. Hypocalcemia - per primary MD 7. Transaminitis, likely secondary to #1 - monitor AST, ALT 8. Elevated troponin -Serial troponin 9. K 5.3 defer to PCP Cassy Cisneros NP Apr 12, 2020 10:45
[2020-04-12] MEDS ORDERED: Sodium Polystyrene Sulfonate 15gm Powder ORAL SCH ×2 (11:30→16:00)
--- NOTE | 2020-04-12 11:30 | NUR ---
NURSE NOTES: notify Dr. Mason for K:5.3. Receive new orders. Order noted and carried out. Will continue to monitor.
[2020-04-12 12:00] VITALS: BP 114/93
[2020-04-12] MEDS: Albuterol 90mcg Inhaler 8gm INH PRN ×2 (12:21→18:23)
--- NOTE | 2020-04-12 15:01 | NUR ---
CASE MANAGEMENT:REVIEW 04/12/20 SI: COVID PNA. GIANNA. ELEVATED TROPONIN 96.7 85 24 114/93 95% ON 15L NRB HGB-11.4 K+5.3 BUN+40 IS: IV LASIX QD IV REMDESIVIR Q24 (04/25) IV DECADRON QD ASA PO QD LOPRESSOR PO Q12 LOVENOX SQ QD IVF@60/HR : TELEMETRY STATUS DCP: FROM HOME PLAN: WEAN OXYGEN
[2020-04-12] MEDS: Maintenance Dose:Remdesivir 100mg/NS 230ml x 4 Doses IV SCH ×2 (15:38)
[2020-04-12] MEDS: D5 1/2NS 1,000 ML IV SCH (15:38)
--- NOTE | 2020-04-12 15:54 | Consultation ---
Consult Note Consult Note I am asked to evaluate the patient at the request of Dr. Mason for hyperkalemia and azotemia Day 3 of patient's hospitalization here at [facility] Being treated for following conditions: 1. COVID-19 disease. 2. Hypoxemia. 3. Morbid obesity. 4. Hyperlipidemia. 5. Lymphocytopenia. 6. Lactic acidosis. 7. Hyperglycemia. Labs reviewed Medication list reviewed PHYSICAL EXAMINATION: VITAL SIGNS: Temperature is 97.6, pulse 69, blood pressure 100/60. GENERAL APPEARANCE: Morbidly obese. HEAD AND NECK: Getting oxygen by nasal cannula. Currently on 2 liters, oxygen saturation is 97%. HEART: Tachycardia. LUNGS: Clear. ABDOMEN: Soft, obese. EXTREMITIES: She has evidence of stasis dermatitis of both legs, has edema of right foot. LABORATORY AND DIAGNOSTIC DATA: WBC 4.7, hemoglobin 11.5, hematocrit 40.2, platelets 359,000. Lymphocytes is low 16.2%. Lactic acid is elevated, the latest one is 2.5. Sodium 140, potassium 4.6, chloride 104, bicarb 32, BUN 35, creatinine 1.2. Glucose 131. Troponin was 0.153. UA showed wbc of 5 to 10, rbc of 15 to 20. . Assessment/Plan Impression: Hyperkalemia Azotemia Diastolic dysfunction Covid pneumonia Pulmonary hypertension Severe TR Diabetes mellitus Morbid obesity Proteinuria Suggestions: DC IV fluid P.o. Kayexalate Continue per cardiology Monitor renal parameters and electrolytes Continue per pulmonary Per orders Cristhian Vick MD Apr 12, 2020 15:54
[2020-04-12 16:00] VITALS: BP 120/83
[2020-04-12] MEDS: Docusate 100mg cap ORAL SCH (17:44)
--- NOTE | 2020-04-12 18:52 | NUR ---
NURSE HAND-OFF REPORT: Important Events on Shift: SOB with exertion and coughing. Loss of appetite but sense of taste intact. Patient Status: [] Diet: [regular diet] Pending Orders: [] Pending Results/Labs:[] Pending MD notification:[] Latest Vital Signs: Temperature 98.6 , Pulse 85 , B/P 120 /83 , Respiratory Rate 24 , O2 SAT 95 , Nasal Cannula, O2 Flow Rate 15.0 . Vital Sign Comment: [] EKG Rhythm: Sinus Rhythm Rhythm change?: N MD Notified?: - MD Response: Latest Velasquez Fall Score: 45 Fall Risk: High Risk Safety Measures: Call light Within Reach, Bed Alarm Zone 1, Side Rails Side Rails x2, Bed position Low and Locked. Fall Precautions: Door Sign Patient Fall Education
[2020-04-12 20:00] VITALS: BP 119/79
--- NOTE | 2020-04-12 20:31 | NUR ---
HAND-OFF: Report given to SEGUNDO Das. Round is made.
--- NOTE | 2020-04-12 20:35 | NUR ---
NURSE NOTES: Important Events on Shift: Received report from Manuel Weiss RN. Pt in stable condition, alert, awake, oriented x 4. Pt denies pain, distress. No symptoms or signs noted. Will continue to monitor. Will continue plan of care. Patient Status: FC Diet: reg Pending Orders: None Pending Results/Labs: none Pending MD notification: none Latest Vital Signs: Temperature 98.9 , Pulse 87 , B/P 123 /74 , Respiratory Rate 24 , O2 SAT 96 , Non-rebreather mask, O2 Flow Rate 15.0 . Vital Sign Comment: EKG Rhythm: SR w/ BBB Rhythm change?: N MD Notified?: - MD Response: Latest Velasquez Fall Score: 45 Fall Risk: High Risk Safety Measures: YES Call light Within Reach, Bed Alarm Zone 1, Side Rails Side Rails x3, Bed position Low and Locked. Fall Precautions: YES Yellow Socks Yellow Gown Door Sign Patient Fall Education YES
[2020-04-13] VITALS: BP 123/74
[2020-04-13 04:00] VITALS: BP 124/55
--- NOTE | 2020-04-13 06:53 | NUR ---
NURSE HAND-OFF REPORT: Important Events on Shift: None Patient Status: FC Diet: regular, poor PO intake Pending Orders: none Pending Results/Labs: BNP, CRP, GGTP, HA1C, Lactic, TSH, Vit D., mag, phos Pending MD notification: none Latest Vital Signs: Temperature 98.9 , Pulse 95 , B/P 124 /55 , Respiratory Rate 22 , O2 SAT 94 , Nasal Cannula, O2 Flow Rate 15.0 . Vital Sign Comment: stable EKG Rhythm: Sinus Rhythm Rhythm change?: N MD Notified?: - MD Response: Latest Velasquez Fall Score: 45 Fall Risk: High Risk Safety Measures: YES Call light Within Reach, Bed Alarm Zone 1, Side Rails Side Rails x3, Bed position Low and Locked. Fall Precautions: YES Yellow Socks Yellow Gown Door Sign Patient Fall Education Report given to Trina Tariq RN.
--- NOTE | 2020-04-13 07:00 | NUR ---
NURSE NOTES: Received patient report from SEGUNDO Das. Patient is AO x4 in bed, asleep at this time. Patient on Non-rebreather @15L, no signs of respiratory distress at this time. No pain or discomfort noted. Patient with R hand 20G SL, patent and intact. Bed in lowest position, locked with side rails x2 up. Call light within reach.
[2020-04-13 08:00] VITALS: BP 117/78
[2020-04-13 08:13] LABS: BASOPHILS % (AUTO) 1.4 % (0.0-2.0); HEMATOCRIT 45.2 % (37.0-47.0); HEMOGLOBIN 12.6 G/DL (12.0-16.0); LYMPHOCYTES % (AUTO) 12.5 % (20.0-45.0); MEAN CORPUSCULAR VOLUME 82 FL (80-99); MONOCYTES % (AUTO) 15.6 % (1.0-10.0); NEUTROPHILS % (AUTO) 70.6 % (45.0-75.0); PLATELET COUNT 384 K/UL (150-450); RED BLOOD COUNT 5.54 M/UL (4.20-5.40); WHITE BLOOD COUNT 6.2 K/UL (4.8-10.8)
[2020-04-13] MEDS: Enoxaparin 40mg Inj SUBQ SCH (08:47)
[2020-04-13] MEDS: dexAMETHasone 10mg/ml Inj IV SCH (08:48)
[2020-04-13] MEDS: Aspirin EC 81mg tab ORAL SCH (08:48)
[2020-04-13] MEDS: Docusate 100mg cap ORAL SCH ×3 (08:48→17:53)
[2020-04-13] MEDS: Metoprolol Tartrate 12.5mg TAB ORAL SCH ×2 (08:48→21:25)
--- NOTE | 2020-04-13 08:59 | General Progress Note ---
Subjective Constitutional: Reports: weakness Allergies: Coded Allergies: No Known Allergies (Unverified , 04/09/20) All Systems: reviewed and negative except above Subjective o2 mask sleepy Objective Last 24 Hour Vital Signs Date Time Temp Pulse Resp B/P (MAP) Pulse Ox O2 Delivery O2 Flow Rate FiO2 04/13/20 08:48 85 117/78 04/13/20 08:00 98.1 85 19 117/78 (91) 94 04/13/20 04:00 98.9 95 22 124/55 (78) 94 04/13/20 04:00 77 04/13/20 00:00 98.9 96 24 123/74 (90) 96 04/13/20 00:00 87 04/12/20 21:00 94 119/79 04/12/20 21:00 Non-Rebreather 15.0 04/12/20 20:00 98.6 94 25 119/79 (92) 95 04/12/20 16:00 85 04/12/20 16:00 98.6 81 24 120/83 (95) 95 04/12/20 12:00 85 04/12/20 12:00 96.7 85 24 114/93 (100) 95 04/12/20 09:08 86 112/65 04/12/20 09:00 Non-Rebreather 15.0 Intake and Output 04/12/20 04/13/20 19:00 07:00 Intake Total 560 ml 200 ml Output Total 1200 ml Balance -640 ml 200 ml Intake Oral 140 ml 200 ml IV Total 420 ml Output Urine Total 1200 ml # Voids 3 Laboratory Tests 04/12/20 10:26: Potassium Level 5.3H 04/13/20 07:12: Potassium Level [Pending], White Blood Count 6.2, Red Blood Count 5.54H, Hemoglobin 12.6, Hematocrit 45.2, Mean Corpuscular Volume 82, Mean Corpuscular Hemoglobin 22.7L, Mean Corpuscular Hemoglobin Concent 27.8L, Red Cell Distrib ution Width 15.0H, Platelet Count 384, Mean Platelet Volume 9.3, Neutrophils (%) (Auto) 70.6, Lymphocytes (%) (Auto) 12.5L, Monocytes (%) (Auto) 15.6H, Eosinophils (%) (Auto) 0.0, Basophils (%) (Auto) 1.4, Sodium Level [Pending], Chloride Level [Pending], Carbon Dioxide Level [Pending], Blood Urea Nitrogen [Pending], Creatinine [Pending], Estimat Glomerular Filtration Rate [Pending], Glucose Level [Pending], Hemoglobin A1c [Pending], Uric Acid [Pending], Calcium Level [Pending], Phosphorus Level [Pending], Magnesium Level [Pending], Total Bilirubin [Pending], Direct Bilirubin [Pending], Gamma Glutamyl Transpeptidase [Pending], Aspartate Amino Transf (AST/SGOT) [Pending], Alanine Aminotransferase (ALT/SGPT) [Pending], Alkaline Phosphatase [Pending], Lactate Dehydrogenase [Pending], C-Reactive Protein, Quantitative [Pending], Pro-B-Type Natriuretic Peptide [Pending], Total Protein [Pending], Albumin [Pending], Globulin [Pending], Triglycerides Level [Pending], Cholesterol Level [Pending], LDL Cholesterol [Pending], HDL Cholesterol [Pending], Cholesterol/HDL Ratio [Pending], Vitamin D 25-Hydroxy [Pending], 25-Hydroxy Vitamin D2 [Pending], 25- Hydroxy Vitamin D3 [Pending], Thyroid Stimulating Hormone (TSH) [Pending] Height (Feet): 5 Height (Inches): 4.00 Weight (Pounds): 341 General Appearance: lethargic EENT: normal ENT inspection Neck: normal alignment Cardiovascular: normal peripheral pulses, normal rate, regular rhythm Respiratory/Chest: chest wall non-tender, lungs clear, normal breath sounds Abdomen: normal bowel sounds, non tender, soft Extremities: normal inspection Edema: no edema noted Arm (L), no edema noted Arm (R), no edema noted Leg (L), no edema noted Leg (R), no edema noted Pedal (L), no edema noted Pedal (R), no edema noted Generalized Neurologic: motor weakness Skin: normal pigmentation, warm/dry Assessment/Plan Problem List: (1) HTN (hypertension) ICD Codes: I10 - Essential (primary) hypertension SNOMED: 93140795 (2) Diabetes ICD Codes: E11.9 - Type 2 diabetes mellitus without complications SNOMED: 40660357 (3) Obese ICD Codes: E66.9 - Obesity, unspecified SNOMED: 942701586, 386571646 (4) CHF (congestive heart failure) ICD Codes: I50.9 - Heart failure, unspecified SNOMED: 27769184 (5) Dyspnea ICD Codes: R06.00 - Dyspnea, unspecified SNOMED: 198425084 (6) Pneumonia due to COVID-19 virus ICD Codes: U07.1 - COVID-19; J12.82 - Pneumonia due to coronavirus disease 2018 SNOMED: 933523168694326313 (7) Respiratory distress ICD Codes: R06.03 - Acute respiratory distress SNOMED: 941142484 (8) Hypoxia ICD Codes: R09.02 - Hypoxemia SNOMED: 658837453 (9) COVID-19 ICD Codes: U07.1 - COVID-19 SNOMED: 998784537 Status: unchanged Assessment/Plan: o2 pum tx abx bp bs control cardio f/u cbc bmp am Dawood Mason DO Apr 13, 2020 08:59
[2020-04-13 09:11] LABS: ALANINE AMINOTRANSFERASE 94 U/L (12-78); ALBUMIN 2.3 G/DL (3.4-5.0); ALBUMIN/GLOBULIN RATIO 0.4 (1.0-2.7); ALKALINE PHOSPHATASE 100 U/L (46-116); ANION GAP 7 mmol/L (5-15); ASPARTATE AMINO TRANSFERASE 120 U/L (15-37); BILIRUBIN,DIRECT 0.3 MG/DL (0.0-0.3); BILIRUBIN,TOTAL 0.3 MG/DL (0.2-1.0); BLOOD UREA NITROGEN 54 mg/dL (7-18); CALCIUM 8.9 MG/DL (8.5-10.1); CARBON DIOXIDE 30 MMOL/L (21-32); CHLORIDE 102 MMOL/L (98-107); CHOLESTEROL 84 MG/DL (< 200); CREATININE 1.1 MG/DL (0.55-1.30); HDL CHOLESTEROL 17 MG/DL (40-60); POTASSIUM 4.9 MMOL/L (3.5-5.1); SODIUM 139 MMOL/L (136-145); TRIGLYCERIDES 77 MG/DL (30-150)
[2020-04-13] MEDS ORDERED: D5 1/2NS 1000ml IV ONE (11:00)
--- NOTE | 2020-04-13 11:01 | Pulmonology Progress Note ---
Subjective ROS Limited/Unobtainable: Yes Interval Events: now on NRB Constitutional: Reports: anorexia HEENT: Repors: no symptoms Respiratory: Reports: no symptoms Cardiovascular: Reports: no symptoms Gastrointestinal/Abdominal: Reports: no symptoms Allergies: Coded Allergies: No Known Allergies (Unverified , 04/09/20) All Systems: reviewed and negative except above Objective Last 24 Hour Vital Signs Date Time Temp Pulse Resp B/P (MAP) Pulse Ox O2 Delivery O2 Flow Rate FiO2 04/13/20 09:00 Non-Rebreather 15.0 04/13/20 08:48 85 117/78 04/13/20 08:00 98.1 85 19 117/78 (91) 94 04/13/20 08:00 86 04/13/20 04:00 98.9 95 22 124/55 (78) 94 04/13/20 04:00 77 04/13/20 00:00 98.9 96 24 123/74 (90) 96 04/13/20 00:00 87 04/12/20 21:00 94 119/79 04/12/20 21:00 Non-Rebreather 15.0 04/12/20 20:00 98.6 94 25 119/79 (92) 95 04/12/20 16:00 85 04/12/20 16:00 98.6 81 24 120/83 (95) 95 04/12/20 12:00 85 04/12/20 12:00 96.7 85 24 114/93 (100) 95 Intake and Output 04/12/20 04/13/20 19:00 07:00 Intake Total 560 ml 200 ml Output Total 1200 ml Balance -640 ml 200 ml Intake Oral 140 ml 200 ml IV Total 420 ml Output Urine Total 1200 ml # Voids 3 General Appearance: no acute distress HEENT: atraumatic Respiratory: chest wall non-tender, inspiratory wheezing Cardiovascular: normal rate Abdomen: soft, non tender Laboratory Tests 04/13/20 07:12: White Blood Count 6.2, Red Blood Count 5.54H, Hemoglobin 12.6, Hematocrit 45.2, Mean Corpuscular Volume 82, Mean Corpuscular Hemoglobin 22.7L, Mean Corpuscular Hemoglobin Concent 27.8L, Red Cell Distribution Width 15.0H, Platelet Count 384, Mean Platelet Volume 9.3, Neutrophils (%) (Auto) 70.6, Lymphocytes (%) (Auto) 12.5L, Monocytes (%) (Auto) 15.6H, Eosinophils (%) (Auto) 0.0, Basophils (%) (Auto) 1.4, Sodium Level 139, Potassium Level 4.9, Chloride Level 102, Carbon Dioxide Level 30, Anion Gap 7, Blood Urea Nitrogen 54H, Creatinine 1.1, Estimat Glomerular Filtration Rate 55.0, Glucose Level 111H, Hemoglobin A1c 6.6H, Uric Acid 8.1H, Calcium Level 8.9, Phosphorus Level 5.0H, Magnesium Level 2.4, Total Bilirubin 0.3, Direct Bilirubin 0.3, Gamma Glutamyl Transpeptidase 76, Aspartate Amino Transf (AST/SGOT) 120H, Alanine Aminotransferase (ALT/SGPT) 94H, Alkaline Phosphatase 100, Lactate Dehydrogenase 551H, C-Reactive Protein, Quantitative 9.2H, Pro-B-Type Natriuretic Peptide 7719H, Total Protein 8.6H, Albumin 2.3L, Globulin 6.3, Albumin/Globulin Ratio 0.4L, Triglycerides Level 77, Cholesterol Level 84, LDL Cholesterol 53, HDL Cholesterol 17L, Cholesterol/HDL Ratio 4.9H, Vitamin D 25-Hydroxy [Pending], 25-Hydroxy Vitamin D2 [Pending], 25-Hydroxy Vitamin D3 [Pending], Thyroid Stimulating Hormone (TSH) 0.742 Current Medications Medications (Trade) Dose Ordered Sig/Arturo Route PRN Reason Start Time Stop Time Status Last Admin Dose Admin Acetaminophen (Tylenol) 650 mg Q4H PRN ORAL Temp >100.5 04/11/20 05:30 05/11/20 05:29 04/11/20 05:45 Albuterol Sulfate (Proventil MDI) 2 puff Q4H PRN INH Shortness of Breath 04/12/20 11:00 07/11/20 10:59 04/12/20 18:23 Aspirin (Ecotrin) 81 mg DAILY ORAL 04/12/20 09:00 05/27/20 08:59 04/13/20 08:48 Dexamethasone Sodium Phosphate (Decadron 10mg/ ml Inj) 6 mg DAILY IV 04/10/20 09:00 04/18/20 09:01 04/13/20 08:48 Docusate Sodium (Colace) 100 mg THREE TIMES A DAY ORAL 04/12/20 18:00 05/12/20 17:59 04/13/20 08:48 Enoxaparin Sodium (Lovenox) 40 mg DAILY SUBQ 04/10/20 09:00 07/09/20 08:59 04/13/20 08:47 Furosemide (Lasix) 40 mg DAILY IV 04/13/20 09:00 05/13/20 08:59 04/13/20 08:49 Guaifenesin/ Dextromethorphan (Robitussin DM Syrup) 15 ml Q6H PRN ORAL For Cough 04/10/20 19:00 07/09/20 18:59 04/12/20 09:22 Metoprolol Tartrate (Lopressor) 12.5 mg Q12HR ORAL 04/11/20 21:00 07/10/20 20:59 04/13/20 08:48 Morphine Sulfate (Morphine Sulfate) 2 mg Q4H PRN IVP For Pain 04/09/20 18:15 04/16/20 18:14 04/11/20 00:05 Pantoprazole (Protonix) 40 mg EVERY 12 HOURS ORAL 04/12/20 21:00 05/12/20 20:59 04/13/20 08:48 Remdesivir 100 mg/ Sodium Chloride 250 ml @ 250 mls/hr Q24H IV 04/12/20 16:00 04/15/20 16:59 04/12/20 15:38 Assessment/Plan Assessment/Plan Assessment/Plan Assessment/Plan 1. COVID-19 pneumonia -We will continue steroids and broad-spectrum antibiotics -Defer use of remdesivir to ID - on NRB, Sat at 94% - Albuterol PRN wheezing 2. Elevated inflammatory markers -continue Lovenox for DVT prophylaxis - Venous duplex neg for DVT (04/10) 3. GIANNA -IV fluids -Management per primary MD 4. Diabetes mellitus with hyperglycemia -Patient reports taking Metformin at home 5. Lactic acidemia - per primary MD 6. Hypocalcemia - per primary MD 7. Transaminitis, likely secondary to #1 - monitor AST, ALT 8. Elevated troponin -Serial troponin 9. Hyperkalemia control, K 4.9 Above plan was discussed with supervising physician Cassy Cisneros NP Apr 13, 2020 11:01
--- NOTE | 2020-04-13 11:20 | Nephrology Progress Note ---
Assessment/Plan Problem List: (1) Pneumonia due to COVID-19 virus (2) Obese (3) CHF (congestive heart failure) (4) Hypoxia (5) GIANNA (acute kidney injury) (6) Hyperkalemia Assessment Hyperkalemia Azotemia Diastolic dysfunction Covid pneumonia Pulmonary hypertension Severe TR Diabetes mellitus Morbid obesity Proteinuria Plan April 13: Today's labs reviewed. Hyperkalemia resolved. Continue to monitor renal parameters. Previously DC IV fluid P.o. Kayexalate Continue per cardiology Monitor renal parameters and electrolytes Continue per pulmonary Per orders Subjective ROS Limited/Unobtainable: Yes Objective Objective Last 24 Hour Vital Signs Date Time Temp Pulse Resp B/P (MAP) Pulse Ox O2 Delivery O2 Flow Rate FiO2 04/13/20 09:00 Non-Rebreather 15.0 04/13/20 08:48 85 117/78 04/13/20 08:00 98.1 85 19 117/78 (91) 94 04/13/20 08:00 86 04/13/20 04:00 98.9 95 22 124/55 (78) 94 04/13/20 04:00 77 04/13/20 00:00 98.9 96 24 123/74 (90) 96 04/13/20 00:00 87 04/12/20 21:00 94 119/79 04/12/20 21:00 Non-Rebreather 15.0 04/12/20 20:00 98.6 94 25 119/79 (92) 95 04/12/20 16:00 85 04/12/20 16:00 98.6 81 24 120/83 (95) 95 04/12/20 12:00 85 04/12/20 12:00 96.7 85 24 114/93 (100) 95 Intake and Output 04/12/20 04/13/20 19:00 07:00 Intake Total 560 ml 200 ml Output Total 1200 ml Balance -640 ml 200 ml Intake Oral 140 ml 200 ml IV Total 420 ml Output Urine Total 1200 ml # Voids 3 Current Medications Medications (Trade) Dose Ordered Sig/Arturo Route PRN Reason Start Time Stop Time Status Last Admin Dose Admin Acetaminophen (Tylenol) 650 mg Q4H PRN ORAL Temp >100.5 04/11/20 05:30 05/11/20 05:29 04/11/20 05:45 Albuterol Sulfate (Proventil MDI) 2 puff Q4H PRN INH Shortness of Breath 04/12/20 11:00 07/11/20 10:59 04/12/20 18:23 Aspirin (Ecotrin) 81 mg DAILY ORAL 04/12/20 09:00 05/27/20 08:59 04/13/20 08:48 Dexamethasone Sodium Phosphate (Decadron 10mg/ ml Inj) 6 mg DAILY IV 04/10/20 09:00 04/18/20 09:01 04/13/20 08:48 Docusate Sodium (Colace) 100 mg THREE TIMES A DAY ORAL 04/12/20 18:00 05/12/20 17:59 04/13/20 08:48 Enoxaparin Sodium (Lovenox) 40 mg DAILY SUBQ 04/10/20 09:00 07/09/20 08:59 04/13/20 08:47 Furosemide (Lasix) 40 mg DAILY IV 04/13/20 09:00 05/13/20 08:59 04/13/20 08:49 Guaifenesin/ Dextromethorphan (Robitussin DM Syrup) 15 ml Q6H PRN ORAL For Cough 04/10/20 19:00 07/09/20 18:59 04/12/20 09:22 Metoprolol Tartrate (Lopressor) 12.5 mg Q12HR ORAL 04/11/20 21:00 07/10/20 20:59 04/13/20 08:48 Morphine Sulfate (Morphine Sulfate) 2 mg Q4H PRN IVP For Pain 04/09/20 18:15 04/16/20 18:14 04/11/20 00:05 Pantoprazole (Protonix) 40 mg EVERY 12 HOURS ORAL 04/12/20 21:00 05/12/20 20:59 04/13/20 08:48 Remdesivir 100 mg/ Sodium Chloride 250 ml @ 250 mls/hr Q24H IV 04/12/20 16:00 04/15/20 16:59 04/12/20 15:38 Laboratory Tests 04/13/20 07:12: White Blood Count 6.2, Red Blood Count 5.54H, Hemoglobin 12.6, Hematocrit 45.2, Mean Corpuscular Volume 82, Mean Corpuscular Hemoglobin 22.7L, Mean Corpuscular Hemoglobin Concent 27.8L, Red Cell Distribution Width 15.0H, Platelet Count 384, Mean Platelet Volume 9.3, Neutrophils (%) (Auto) 70.6, Lymphocytes (%) (Auto) 12.5L, Monocytes (%) (Auto) 15.6H, Eosinophils (%) (Auto) 0.0, Basophils (%) (Auto) 1.4, Sodium Level 139, Potassium Level 4.9, Chloride Level 102, Carbon Dioxide Level 30, Anion Gap 7, Blood Urea Nitrogen 54H, Creatinine 1.1, Estimat Glomerular Filtration Rate 55.0, Glucose Level 111H, Hemoglobin A1c 6.6H, Uric Acid 8.1H, Calcium Level 8.9, Phosphorus Level 5.0H, Magnesium Level 2.4, Total Bilirubin 0.3, Direct Bilirubin 0.3, Gamma Glutamyl Transpeptidase 76, Aspartate Amino Transf (AST/SGOT) 120H, Alanine Aminotransferase (ALT/SGPT) 94H, Alkaline Phosphatase 100, Lactate Dehydrogenase 551H, C-Reactive Protein, Quantitative 9.2H, Pro-B-Type Natriuretic Peptide 7719H, Total Protein 8.6H, Albumin 2.3L, Globulin 6.3, Albumin/Globulin Ratio 0.4L, Triglycerides Level 77, Cholesterol Level 84, LDL Cholesterol 53, HDL Cholesterol 17L, Cholesterol/HDL Ratio 4.9H, Vitamin D 25-Hydroxy [Pending], 25-Hydroxy Vitamin D2 [Pending], 25-Hydroxy Vitamin D3 [Pending], Thyroid Stimulating Hormone (TSH) 0.742 Height (Feet): 5 Height (Inches): 4.00 Weight (Pounds): 341 General Appearance: mild distress EENT: other - On nonrebreather mask Cardiovascular: tachycardia Respiratory/Chest: decreased breath sounds Abdomen: distended Cristhian Vick MD Apr 13, 2020 11:20
[2020-04-13 12:00] VITALS: BP 118/78
--- NOTE | 2020-04-13 15:54 | Cardiac Electrophysiology PN ---
Assessment/Plan Assessment/Plan 1. Elevated troponin. This could be due to COVID myocarditis. The EKG does not show any acute ST-T wave abnormality. Echocardiogram EF 65% . Continue aspirin and Lopressor. 2. Congestive heart failure with BNP of almost 10,000. EF 65%. Due to diastolic dysfunction On Lasix 40 iv daily 3. COVID pneumonia and respiratory failure, on 100% nonrebreather facemask, steroid, Remdesevir and broad-spectrum antibiotic. Fu by Dr. Carrero. 4. Severe TR and pulmonary HTN with PAP 70s. ? COPD. FU Dr Carrero 5. Diabetes. 6. Lactic acidemia. 7. Fever. Subjective Subjective Alert in NAD on 15 L NRB FM in covid isolation. Confused in SR Objective Last 24 Hour Vital Signs Date Time Temp Pulse Resp B/P (MAP) Pulse Ox O2 Delivery O2 Flow Rate FiO2 04/13/20 12:00 96.7 75 20 118/78 (91) 96 04/13/20 12:00 86 04/13/20 09:00 Non-Rebreather 15.0 04/13/20 08:48 85 117/78 04/13/20 08:00 98.1 85 19 117/78 (91) 94 04/13/20 08:00 86 04/13/20 04:00 98.9 95 22 124/55 (78) 94 04/13/20 04:00 77 04/13/20 00:00 98.9 96 24 123/74 (90) 96 04/13/20 00:00 87 04/12/20 21:00 94 119/79 04/12/20 21:00 Non-Rebreather 15.0 04/12/20 20:00 98.6 94 25 119/79 (92) 95 04/12/20 16:00 85 04/12/20 16:00 98.6 81 24 120/83 (95) 95 Intake and Output 04/12/20 04/13/20 19:00 07:00 Intake Total 560 ml 200 ml Output Total 1200 ml Balance -640 ml 200 ml Intake Oral 140 ml 200 ml IV Total 420 ml Output Urine Total 1200 ml # Voids 3 Laboratory Tests Test 04/13/20 07:12 White Blood Count 6.2 K/UL (4.8-10.8) Red Blood Count 5.54 M/UL (4.20-5.40) H Hemoglobin 12.6 G/DL (12.0-16.0) Hematocrit 45.2 % (37.0-47.0) Mean Corpuscular Volume 82 FL (80-99) Mean Corpuscular Hemoglobin 22.7 PG (27.0-31.0) L Mean Corpuscular Hemoglobin Concent 27.8 G/DL (32.0-36.0) L Red Cell Distribution Width 15.0 % (11.6-14.8) H Platelet Count 384 K/UL (150-450) Mean Platelet Volume 9.3 FL (6.5-10.1) Neutrophils (%) (Auto) 70.6 % (45.0-75.0) Lymphocytes (%) (Auto) 12.5 % (20.0-45.0) L Monocytes (%) (Auto) 15.6 % (1.0-10.0) H Eosinophils (%) (Auto) 0.0 % (0.0-3.0) Basophils (%) (Auto) 1.4 % (0.0-2.0) Sodium Level 139 MMOL/L (136-145) Potassium Level 4.9 MMOL/L (3.5-5.1) Chloride Level 102 MMOL/L (98-107) Carbon Dioxide Level 30 MMOL/L (21-32) Anion Gap 7 mmol/L (5-15) Blood Urea Nitrogen 54 mg/dL (7-18) H Creatinine 1.1 MG/DL (0.55-1.30) Estimat Glomerular Filtration Rate 55.0 mL/min (>60) Glucose Level 111 MG/DL (74-106) H Hemoglobin A1c 6.6 % (4.3-6.0) H Uric Acid 8.1 MG/DL (2.6-7.2) H Calcium Level 8.9 MG/DL (8.5-10.1) Phosphorus Level 5.0 MG/DL (2.5-4.9) H Magnesium Level 2.4 MG/DL (1.8-2.4) Total Bilirubin 0.3 MG/DL (0.2-1.0) Direct Bilirubin 0.3 MG/DL (0.0-0.3) Gamma Glutamyl Transpeptidase 76 U/L (5-85) Aspartate Amino Transf (AST/SGOT) 120 U/L (15-37) H Alanine Aminotransferase (ALT/SGPT) 94 U/L (12-78) H Alkaline Phosphatase 100 U/L (46-116) Lactate Dehydrogenase 551 U/L (81-234) H C-Reactive Protein, Quantitative 9.2 mg/dL (0.00-0.90) H Pro-B-Type Natriuretic Peptide 7719 pg/mL (0-125) H Total Protein 8.6 G/DL (6.4-8.2) H Albumin 2.3 G/DL (3.4-5.0) L Globulin 6.3 g/dL Albumin/Globulin Ratio 0.4 (1.0-2.7) L Triglycerides Level 77 MG/DL (30-150) Cholesterol Level 84 MG/DL (< 200) LDL Cholesterol 53 mg/dL (<100) HDL Cholesterol 17 MG/DL (40-60) L Cholesterol/HDL Ratio 4.9 (3.3-4.4) H Vitamin D 25-Hydroxy Pending 25-Hydroxy Vitamin D2 Pending 25-Hydroxy Vitamin D3 Pending Thyroid Stimulating Hormone (TSH) 0.742 uiU/mL (0.358-3.740) Objective HEAD AND NECK: No JVD. LUNGS: Decreased breath sounds. CARDIOVASCULAR: Tachycardic S1 and S2 with no gallop. ABDOMEN: Obese. EXTREMITIES: 1+ pitting edema. Dave Tijerina MD Apr 13, 2020 15:54
[2020-04-13 16:00] VITALS: BP 120/87
[2020-04-13] MEDS: Maintenance Dose:Remdesivir 100mg/NS 230ml x 4 Doses IV SCH ×2 (16:00)
--- NOTE | 2020-04-13 19:24 | NUR ---
NURSE HAND-OFF REPORT: Important Events on Shift:NA Patient Status: Stable Diet: Regular Pending Orders: NA Pending Results/Labs:NA Pending MD notification:NA Latest Vital Signs: Temperature 96.7 , Pulse 84 , B/P 120 /87 , Respiratory Rate 21 , O2 SAT 96 , Nasal Cannula, O2 Flow Rate 15.0 . Vital Sign Comment: Stable EKG Rhythm: SR w/ BBB Rhythm change?: N MD Notified?: - MD Response: Latest Velasquez Fall Score: 45 Fall Risk: High Risk Safety Measures: Call light Within Reach, Bed Alarm Zone 1, Side Rails Side Rails x2, Bed position Low and Locked. Fall Precautions: Door Sign Patient Fall Education Report given to SEGUNDO Das.
--- NOTE | 2020-04-13 19:30 | NUR ---
NURSE NOTES: Important Events on Shift: Received report from Radha Nelson RN. Pt in bed, awake, AOx2-3, drowsy. Patient Status: FC Diet: Reg Pending Orders: none Pending Results/Labs: mag., phos., rosalie, CMP, CBC, uric acid Pending MD notification: none Latest Vital Signs: Temperature 98.9 , Pulse 75 , B/P 129 /86 , Respiratory Rate 20 , O2 SAT 96 ,non rebreather, O2 Flow Rate 15.0 . Vital Sign Comment: stable throughout shift EKG Rhythm: Sinus Rhythm Rhythm change?: N MD Notified?: - MD Response: Latest Velasquez Fall Score: 45 Fall Risk: High Risk Safety Measures: Call light Within Reach, Bed Alarm Zone 1, Side Rails Side Rails x3, Bed position Low and Locked. Fall Precautions: yes Yellow Socks Yellow Gown Door Sign Patient Fall Education yes
[2020-04-13 20:00] VITALS: BP 120/81
[2020-04-14] VITALS (7 sets, daily range): BP systolic 111–129; BP diastolic 76–87
--- NOTE | 2020-04-14 07:25 | NUR ---
CASE MANAGEMENT:REVIEW 04/14/20 SI: COVID PNA. GIANNA. ELEVATED TROPONIN 98.9 79 20 129/86 96% ON 15L NRB IS: IV LASIX QD IV REMDESIVIR Q24 (4/5) IV DECADRON QD ASA PO QD LOPRESSOR PO Q12 LOVENOX SQ QD : TELEMETRY STATUS DCP: FROM HOME PLAN: WEAN OXYGEN TOLERATED
--- NOTE | 2020-04-14 07:31 | NUR ---
NURSE HAND-OFF REPORT: Important Events on Shift: None Patient Status: FC Diet: reg Pending Orders: none Pending Results/Labs: AM labs Pending MD notification: none Latest Vital Signs: Temperature 98.9 , Pulse 75 , B/P 129 /86 , Respiratory Rate 20 , O2 SAT 96 , Nasal Cannula, O2 Flow Rate 15.0 . Vital Sign Comment: stable throughout shift EKG Rhythm: Sinus Rhythm Rhythm change?: N MD Notified?: - MD Response: Latest Velasquez Fall Score: 45 Fall Risk: High Risk Safety Measures: Call light Within Reach, Bed Alarm Zone 1, Side Rails Side Rails x3, Bed position Low and Locked. Fall Precautions: YES Yellow Socks Yellow Gown Door Sign Patient Fall Education YES Report given to Solo Culver RN
--- NOTE | 2020-04-14 08:03 | NUR ---
NURSE NOTES: Patient seen in bed asleep in high fowlers position with no acute signs of distress. The patient is on nonrebreather 15L with oxygen saturation within normal limits. the patient has a right 20G IV on the hand that is clean patent and intact and saline locked. The patients bed is in lowest position, locked, side rails x3, bed alarm in zone 1 and call light within reach.
[2020-04-14 08:52] LABS: BASOPHILS % (AUTO) 1.1 % (0.0-2.0); EOSINOPHILS % (AUTO) 0.1 % (0.0-3.0); HEMATOCRIT 44.3 % (37.0-47.0); HEMOGLOBIN 12.8 G/DL (12.0-16.0); LYMPHOCYTES % (AUTO) 9.8 % (20.0-45.0); MEAN CORPUSCULAR VOLUME 81 FL (80-99); MONOCYTES % (AUTO) 8.7 % (1.0-10.0); NEUTROPHILS % (AUTO) 80.3 % (45.0-75.0); PLATELET COUNT 392 K/UL (150-450); RED BLOOD COUNT 5.47 M/UL (4.20-5.40); RED CELL DISTRIBUTION WIDTH 15.3 % (11.6-14.8); WHITE BLOOD COUNT 6.8 K/UL (4.8-10.8)
[2020-04-14] MEDS: dexAMETHasone 10mg/ml Inj IV SCH (09:00)
--- NOTE | 2020-04-14 09:02 | General Progress Note ---
Subjective Constitutional: Reports: weakness Allergies: Coded Allergies: No Known Allergies (Unverified , 04/09/20) All Systems: reviewed and negative except above Subjective o2 mask sleepy Objective Last 24 Hour Vital Signs Date Time Temp Pulse Resp B/P (MAP) Pulse Ox O2 Delivery O2 Flow Rate FiO2 04/14/20 04:00 98.9 75 20 129/86 (100) 96 04/14/20 04:00 79 04/14/20 00:00 98.9 64 20 118/84 (95) 96 04/13/20 21:25 62 120/81 04/13/20 21:00 Non-Rebreather 15.0 04/13/20 20:00 98.7 62 20 120/81 (94) 97 04/13/20 20:00 84 04/13/20 16:00 96.7 67 21 120/87 (98) 96 04/13/20 16:00 84 04/13/20 12:00 96.7 75 20 118/78 (91) 96 04/13/20 12:00 86 Intake and Output0 04/13/20 04/14/20 19:00 07:00 Intake Total 120 ml 300 ml Output Total 1200 ml Balance -1080 ml 300 ml Intake Oral 120 ml 300 ml Output Urine Total 1200 ml # Voids 7 # Bowel Movements 2 Laboratory Tests 04/14/20 08:00: White Blood Count 6.8, Red Blood Count 5.47H, Hemoglobin 12.8, Hematocrit 44.3, Mean Corpuscular Volume 81, Mean Corpuscular Hemoglobin 23.3L, Mean Corpuscular Hemoglobin Concent 28.8L, Red Cell Distribution Width 15.3H, Platelet Count 392, Mean Platelet Volume 10.0, Neutrophils (%) (Auto) 80.3H, Lymphocytes (%) (Auto) 9.8L, Monocytes (%) (Auto) 8.7, Eosinophils (%) (Auto) 0.1, Basophils (%) (Auto) 1.1, Sodium Level [Pending], Potassium Level [Pending], Chloride Level [Pending], Carbon Dioxide Level [Pending], Blood Urea Nitrogen [Pending], Creatinine [Pending], Estimat Glomerular Filtration Rate [Pending], Glucose Level [Pending], Uric Acid [Pending], Calcium Level [Pending], Phosphorus Level [Pending], Magnesium Level [Pending], Total Bilirubin [Pending], Direct Bilirubin [Pending], Aspartate Amino Transf (AST/SGOT) [Pending], Alanine Aminotransferase (ALT/SGPT) [Pending], Alkaline Phosphatase [Pending], Total Protein [Pending], Albumin [Pending], Globulin [Pending] Height (Feet): 5 Height (Inches): 4.00 Weight (Pounds): 341 General Appearance: lethargic EENT: normal ENT inspection Neck: normal alignment Cardiovascular: normal peripheral pulses, normal rate, regular rhythm Respiratory/Chest: chest wall non-tender, lungs clear, normal breath sounds Abdomen: normal bowel sounds, non tender, soft Extremities: normal inspection Edema: no edema noted Arm (L), no edema noted Arm (R), no edema noted Leg (L), no edema noted Leg (R), no edema noted Pedal (L), no edema noted Pedal (R), no edema noted Generalized Neurologic: motor weakness Skin: normal pigmentation, warm/dry Assessment/Plan Problem List: (1) HTN (hypertension) ICD Codes: I10 - Essential (primary) hypertension SNOMED: 04316543 (2) Diabetes ICD Codes: E11.9 - Type 2 diabetes mellitus without complications SNOMED: 64842953 (3) Obese ICD Codes: E66.9 - Obesity, unspecified SNOMED: 515012191, 213725988 (4) CHF (congestive heart failure) ICD Codes: I50.9 - Heart failure, unspecified SNOMED: 13800343 (5) Dyspnea ICD Codes: R06.00 - Dyspnea, unspecified SNOMED: 509561562 (6) Pneumonia due to COVID-19 virus ICD Codes: U07.1 - COVID-19; J12.82 - Pneumonia due to coronavirus disease 2019 SNOMED: 494195743794542157 (7) Respiratory distress ICD Codes: R06.03 - Acute respiratory distress SNOMED: 428298172 (8) Hypoxia ICD Codes: R09.02 - Hypoxemia SNOMED: 146793675 (9) COVID-19 ICD Codes: U07.1 - COVID-19 SNOMED: 288686297 Status: unchanged Assessment/Plan: o2 pum tx abx bp bs control cardio f/u cbc bmp am Dawood Mason DO Apr 14, 2020 09:02
[2020-04-14 09:11] LABS: ALANINE AMINOTRANSFERASE 112 U/L (12-78); ALBUMIN 2.3 G/DL (3.4-5.0); ALBUMIN/GLOBULIN RATIO 0.4 (1.0-2.7); ALKALINE PHOSPHATASE 102 U/L (46-116); ANION GAP 4 mmol/L (5-15); ASPARTATE AMINO TRANSFERASE 119 U/L (15-37); BILIRUBIN,DIRECT 0.3 MG/DL (0.0-0.3); BILIRUBIN,TOTAL 0.3 MG/DL (0.2-1.0); BLOOD UREA NITROGEN 48 mg/dL (7-18); CALCIUM 9.1 MG/DL (8.5-10.1); CARBON DIOXIDE 35 MMOL/L (21-32); CHLORIDE 105 MMOL/L (98-107); CREATININE 0.9 MG/DL (0.55-1.30); POTASSIUM 4.8 MMOL/L (3.5-5.1); SODIUM 143 MMOL/L (136-145)
[2020-04-14] MEDS: Aspirin EC 81mg tab ORAL SCH (09:19)
[2020-04-14] MEDS: Metoprolol Tartrate 12.5mg TAB ORAL SCH ×2 (09:20→20:49)
[2020-04-14] MEDS: Docusate 100mg cap ORAL SCH ×3 (09:20→17:31)
[2020-04-14] MEDS: Enoxaparin 40mg Inj SUBQ SCH (09:22)
--- NOTE | 2020-04-14 09:22 | Nephrology Progress Note ---
Assessment/Plan Problem List: (1) Pneumonia due to COVID-19 virus (2) Obese (3) CHF (congestive heart failure) (4) Hypoxia (5) GIANNA (acute kidney injury) (6) Hyperkalemia Assessment Hyperkalemia Azotemia Diastolic dysfunction Covid pneumonia Pulmonary hypertension Severe TR Diabetes mellitus Morbid obesity Proteinuria Plan April 14: Labs reviewed. Electrolytes acceptable. Continue to monitor renal parameters. April 13: Today's labs reviewed. Hyperkalemia resolved. Continue to monitor renal parameters. Previously DC IV fluid P.o. Kayexalate Continue per cardiology Monitor renal parameters and electrolytes Continue per pulmonary Per orders Subjective ROS Limited/Unobtainable: Yes Objective Objective Last 24 Hour Vital Signs Date Time Temp Pulse Resp B/P (MAP) Pulse Ox O2 Delivery O2 Flow Rate FiO2 04/14/20 04:00 98.9 75 20 129/86 (100) 96 04/14/20 04:00 79 04/14/20 00:00 98.9 64 20 118/84 (95) 96 04/13/20 21:25 62 120/81 04/13/20 21:00 Non-Rebreather 15.0 04/13/20 20:00 98.7 62 20 120/81 (94) 97 04/13/20 20:00 84 04/13/20 16:00 96.7 67 21 120/87 (98) 96 04/13/20 16:00 84 04/13/20 12:00 96.7 75 20 118/78 (91) 96 04/13/20 12:00 86 Intake and Output 04/13/20 04/14/20 19:00 07:00 Intake Total 120 ml 300 ml Output Total 1200 ml Balance -1080 ml 300 ml Intake Oral 120 ml 300 ml Output Urine Total 1200 ml # Voids 7 # Bowel Movements 2 Current Medications Medications (Trade) Dose Ordered Sig/Arturo Route PRN Reason Start Time Stop Time Status Last Admin Dose Admin Acetaminophen (Tylenol) 650 mg Q4H PRN ORAL Temp >100.5 04/11/20 05:30 05/11/20 05:29 04/11/20 05:45 Albuterol Sulfate (Proventil MDI) 2 puff Q4H PRN INH Shortness of Breath 04/12/20 11:00 07/11/20 10:59 04/12/20 18:23 Aspirin (Ecotrin) 81 mg DAILY ORAL 04/12/20 09:00 05/27/20 08:59 04/13/20 08:48 Dexamethasone Sodium Phosphate (Decadron 10mg/ ml Inj) 6 mg DAILY IV 04/10/20 09:00 04/18/20 09:01 04/13/20 08:48 Docusate Sodium (Colace) 100 mg THREE TIMES A DAY ORAL 04/12/20 18:00 05/12/20 17:59 04/13/20 17:53 Enoxaparin Sodium (Lovenox) 40 mg DAILY SUBQ 04/10/20 09:00 07/09/20 08:59 04/13/20 08:47 Furosemide (Lasix) 40 mg DAILY IV 04/13/20 09:00 05/13/20 08:59 04/13/20 08:49 Guaifenesin/ Dextromethorphan (Robitussin DM Syrup) 15 ml Q6H PRN ORAL For Cough 04/10/20 19:00 07/09/20 18:59 04/12/20 09:22 Metoprolol Tartrate (Lopressor) 12.5 mg Q12HR ORAL 04/11/20 21:00 07/10/20 20:59 04/13/20 21:25 Morphine Sulfate (Morphine Sulfate) 2 mg Q4H PRN IVP For Pain 04/09/20 18:15 04/16/20 18:14 04/11/20 00:05 Pantoprazole (Protonix) 40 mg EVERY 12 HOURS ORAL 04/12/20 21:00 05/12/20 20:59 04/13/20 21:24 Remdesivir 100 mg/ Sodium Chloride 250 ml @ 250 mls/hr Q24H IV 04/12/20 16:00 04/15/20 16:59 04/13/20 16:00 Laboratory Tests 04/14/20 08:00: White Blood Count 6.8, Red Blood Count 5.47H, Hemoglobin 12.8, Hematocrit 44.3, Mean Corpuscular Volume 81, Mean Corpuscular Hemoglobin 23.3L, Mean Corpuscular Hemoglobin Concent 28.8L, Red Cell Distribution Width 15.3H, Platelet Count 392, Mean Platelet Volume 10.0, Neutrophils (%) (Auto) 80.3H, Lymphocytes (%) (Auto) 9.8L, Monocytes (%) (Auto) 8.7, Eosinophils (%) (Auto) 0.1, Basophils (%) (Auto) 1.1, Sodium Level 143, Potassium Level 4.8, Chloride Level 105, Carbon Dioxide Level 35H, Anion Gap 4L, Blood Urea Nitrogen 48H, Creatinine 0.9, Estimat Glomerular Filtration Rate > 60, Glucose Level 110H, Uric Acid [Pending], Calcium Level 9.1, Phosphorus Level [Pending], Magnesium Level [Pending], Total Bilirubin 0.3, Direct Bilirubin 0.3, Aspartate Amino Transf (AST/SGOT) 119H, Alanine Aminotransferase (ALT/SGPT) 112H, Alkaline Phosphatase 102, Total Protein 8.3H, Albumin 2.3L, Globulin 6.0, Albumin/Globulin Ratio 0.4L Height (Feet): 5 Height (Inches): 4.00 Weight (Pounds): 341 General Appearance: no apparent distress EENT: other - On nonrebreather mask Cardiovascular: normal rate Respiratory/Chest: decreased breath sounds Abdomen: distended Cristhian Vick MD Apr 14, 2020 09:22
--- NOTE | 2020-04-14 11:05 | Infectious Diseases Prog Note ---
Assessment/Plan Assessment/Plan antibiotics : remdesivir A 1. covid 19 pneumonia on 15 liters O2 with 97 % saturation 2. diabetes mellitus 3. obesity P 1. continue remdesivir day 4 2. d/c dexamethasone 3. start solumedrol 4. continue isolation Subjective ROS Limited/Unobtainable: Yes Allergies: Coded Allergies: No Known Allergies (Unverified , 04/09/20) Objective Last 24 Hour Vital Signs Date Time Temp Pulse Resp B/P (MAP) Pulse Ox O2 Delivery O2 Flow Rate FiO2 04/14/20 09:20 82 127/87 04/14/20 09:00 Non-Rebreather 15.0 04/14/20 08:00 97.9 82 22 127/87 (100) 97 04/14/20 08:00 77 04/14/20 04:00 98.9 75 20 129/86 (100) 96 04/14/20 04:00 79 04/14/20 00:00 98.9 64 20 118/84 (95) 96 04/13/20 21:25 62 120/81 04/13/20 21:00 Non-Rebreather 15.0 04/13/20 20:00 98.7 62 20 120/81 (94) 97 04/13/20 20:00 84 04/13/20 16:00 96.7 67 21 120/87 (98) 96 04/13/20 16:00 84 04/13/20 12:00 96.7 75 20 118/78 (91) 96 04/13/20 12:00 86 Height (Feet): 5 Height (Inches): 4.00 Weight (Pounds): 341 Laboratory Tests Test 04/14/20 08:00 White Blood Count 6.8 K/UL (4.8-10.8) Red Blood Count 5.47 M/UL (4.20-5.40) H Hemoglobin 12.8 G/DL (12.0-16.0) Hematocrit 44.3 % (37.0-47.0) Mean Corpuscular Volume 81 FL (80-99) Mean Corpuscular Hemoglobin 23.3 PG (27.0-31.0) L Mean Corpuscular Hemoglobin Concent 28.8 G/DL (32.0-36.0) L Red Cell Distribution Width 15.3 % (11.6-14.8) H Platelet Count 392 K/UL (150-450) Mean Platelet Volume 10.0 FL (6.5-10.1) Neutrophils (%) (Auto) 80.3 % (45.0-75.0) H Lymphocytes (%) (Auto) 9.8 % (20.0-45.0) L Monocytes (%) (Auto) 8.7 % (1.0-10.0) Eosinophils (%) (Auto) 0.1 % (0.0-3.0) Basophils (%) (Auto) 1.1 % (0.0-2.0) Sodium Level 143 MMOL/L (136-145) Potassium Level 4.8 MMOL/L (3.5-5.1) Chloride Level 105 MMOL/L (98-107) Carbon Dioxide Level 35 MMOL/L (21-32) H Anion Gap 4 mmol/L (5-15) L Blood Urea Nitrogen 48 mg/dL (7-18) H Creatinine 0.9 MG/DL (0.55-1.30) Estimat Glomerular Filtration Rate > 60 mL/min (>60) Glucose Level 110 MG/DL (74-106) H Uric Acid 7.8 MG/DL (2.6-7.2) H Calcium Level 9.1 MG/DL (8.5-10.1) Phosphorus Level 4.0 MG/DL (2.5-4.9) Magnesium Level 2.3 MG/DL (1.8-2.4) Total Bilirubin 0.3 MG/DL (0.2-1.0) Direct Bilirubin 0.3 MG/DL (0.0-0.3) Aspartate Amino Transf (AST/SGOT) 119 U/L (15-37) H Alanine Aminotransferase (ALT/SGPT) 112 U/L (12-78) H Alkaline Phosphatase 102 U/L (46-116) Total Protein 8.3 G/DL (6.4-8.2) H Albumin 2.3 G/DL (3.4-5.0) L Globulin 6.0 g/dL Albumin/Globulin Ratio 0.4 (1.0-2.7) L Current Medications Medications (Trade) Dose Ordered Sig/Arturo Route PRN Reason Start Time Stop Time Status Last Admin Dose Admin Acetaminophen (Tylenol) 650 mg Q4H PRN ORAL Temp >100.5 04/11/20 05:30 05/11/20 05:29 04/11/20 05:45 Albuterol Sulfate (Proventil MDI) 2 puff Q4H PRN INH Shortness of Breath 04/12/20 11:00 07/11/20 10:59 04/12/20 18:23 Aspirin (Ecotrin) 81 mg DAILY ORAL 04/12/20 09:00 05/27/20 08:59 04/14/20 09:19 Dexamethasone Sodium Phosphate (Decadron 10mg/ ml Inj) 6 mg DAILY IV 04/10/20 09:00 04/18/20 09:01 04/14/20 09:00 Docusate Sodium (Colace) 100 mg THREE TIMES A DAY ORAL 04/12/20 18:00 05/12/20 17:59 04/14/20 09:20 Enoxaparin Sodium (Lovenox) 40 mg DAILY SUBQ 04/10/20 09:00 07/09/20 08:59 04/14/20 09:22 Furosemide (Lasix) 40 mg DAILY IV 04/13/20 09:00 05/13/20 08:59 04/14/20 09:00 Guaifenesin/ Dextromethorphan (Robitussin DM Syrup) 15 ml Q6H PRN ORAL For Cough 04/10/20 19:00 07/09/20 18:59 04/12/20 09:22 Metoprolol Tartrate (Lopressor) 12.5 mg Q12HR ORAL 04/11/20 21:00 07/10/20 20:59 04/14/20 09:20 Morphine Sulfate (Morphine Sulfate) 2 mg Q4H PRN IVP For Pain 04/09/20 18:15 04/16/20 18:14 04/11/20 00:05 Pantoprazole (Protonix) 40 mg EVERY 12 HOURS ORAL 04/12/20 21:00 05/12/20 20:59 04/14/20 09:21 Remdesivir 100 mg/ Sodium Chloride 250 ml @ 250 mls/hr Q24H IV 04/12/20 16:00 04/15/20 16:59 04/13/20 16:00 Leo Lucero MD Apr 14, 2020 11:05
[2020-04-14] MEDS: Solu-MEDROL 40mg Inj IVP SCH ×2 (11:35→20:50)
--- NOTE | 2020-04-14 12:53 | Cardiac Electrophysiology PN ---
Assessment/Plan Assessment/Plan 1. Elevated troponin could be due to COVID myocarditis. The EKG does not show any acute ST-T wave abnormality. Echocardiogram EF 65% . Continue aspirin and Lopressor. 2. Congestive heart failure with BNP of almost 10,000. EF 65%. Due to diastolic dysfunction On Lasix 40 iv daily 3. COVID pneumonia and respiratory failure, on 100% nonrebreather facemask, steroid, Remdesevir and broad-spectrum antibiotic. Fu by Dr. Carrero. 4. Severe TR and pulmonary HTN with PAP 70s. ? COPD. FU Dr Carrero 5. Diabetes. 6. Lactic acidemia. 7. Fever. Subjective Subjective Alert in NAD on 15 L NRB FM in covid isolation. Confused in SR. 97% Sat Objective Last 24 Hour Vital Signs Date Time Temp Pulse Resp B/P (MAP) Pulse Ox O2 Delivery O2 Flow Rate FiO2 04/14/20 12:00 98.2 74 20 111/76 (88) 98 04/14/20 09:20 82 127/87 04/14/20 09:00 Non-Rebreather 15.0 04/14/20 08:00 97.9 82 22 127/87 (100) 97 04/14/20 08:00 77 04/14/20 04:00 98.9 75 20 129/86 (100) 96 04/14/20 04:00 79 04/14/20 00:00 98.9 64 20 118/84 (95) 96 04/13/20 21:25 62 120/81 04/13/20 21:00 Non-Rebreather 15.0 04/13/20 20:00 98.7 62 20 120/81 (94) 97 04/13/20 20:00 84 04/13/20 16:00 96.7 67 21 120/87 (98) 96 04/13/20 16:00 84 Intake and Output 04/13/20 04/14/20 19:00 07:00 Intake Total 120 ml 300 ml Output Total 1200 ml Balance -1080 ml 300 ml Intake Oral 120 ml 300 ml Output Urine Total 1200 ml # Voids 7 # Bowel Movements 2 Laboratory Tests Test 04/14/20 08:00 White Blood Count 6.8 K/UL (4.8-10.8) Red Blood Count 5.47 M/UL (4.20-5.40) H Hemoglobin 12.8 G/DL (12.0-16.0) Hematocrit 44.3 % (37.0-47.0) Mean Corpuscular Volume 81 FL (80-99) Mean Corpuscular Hemoglobin 23.3 PG (27.0-31.0) L Mean Corpuscular Hemoglobin Concent 28.8 G/DL (32.0-36.0) L Red Cell Distribution Width 15.3 % (11.6-14.8) H Platelet Count 392 K/UL (150-450) Mean Platelet Volume 10.0 FL (6.5-10.1) Neutrophils (%) (Auto) 80.3 % (45.0-75.0) H Lymphocytes (%) (Auto) 9.8 % (20.0-45.0) L Monocytes (%) (Auto) 8.7 % (1.0-10.0) Eosinophils (%) (Auto) 0.1 % (0.0-3.0) Basophils (%) (Auto) 1.1 % (0.0-2.0) Sodium Level 143 MMOL/L (136-145) Potassium Level 4.8 MMOL/L (3.5-5.1) Chloride Level 105 MMOL/L (98-107) Carbon Dioxide Level 35 MMOL/L (21-32) H Anion Gap 4 mmol/L (5-15) L Blood Urea Nitrogen 48 mg/dL (7-18) H Creatinine 0.9 MG/DL (0.55-1.30) Estimat Glomerular Filtration Rate > 60 mL/min (>60) Glucose Level 110 MG/DL (74-106) H Uric Acid 7.8 MG/DL (2.6-7.2) H Calcium Level 9.1 MG/DL (8.5-10.1) Phosphorus Level 4.0 MG/DL (2.5-4.9) Magnesium Level 2.3 MG/DL (1.8-2.4) Total Bilirubin 0.3 MG/DL (0.2-1.0) Direct Bilirubin 0.3 MG/DL (0.0-0.3) Aspartate Amino Transf (AST/SGOT) 119 U/L (15-37) H Alanine Aminotransferase (ALT/SGPT) 112 U/L (12-78) H Alkaline Phosphatase 102 U/L (46-116) Total Protein 8.3 G/DL (6.4-8.2) H Albumin 2.3 G/DL (3.4-5.0) L Globulin 6.0 g/dL Albumin/Globulin Ratio 0.4 (1.0-2.7) L Objective HEAD AND NECK: No JVD. LUNGS: Decreased breath sounds. CARDIOVASCULAR: Tachycardic S1 and S2 with no gallop. ABDOMEN: Obese. EXTREMITIES: 1+ pitting edema. Dave Tijerina MD Apr 14, 2020 12:53
--- NOTE | 2020-04-14 13:59 | NUR ---
INSURANCE CLINICALS AND REVIEW FAXED TO [facility] T: [phone] F:[phone]
--- NOTE | 2020-04-14 15:12 | Pulmonology Progress Note ---
Subjective ROS Limited/Unobtainable: Yes Interval Events: now on NRB Constitutional: Reports: anorexia HEENT: Repors: no symptoms Respiratory: Reports: no symptoms Cardiovascular: Reports: no symptoms Gastrointestinal/Abdominal: Reports: no symptoms Allergies: Coded Allergies: No Known Allergies (Unverified , 04/09/20) All Systems: reviewed and negative except above Objective Last 24 Hour Vital Signs Date Time Temp Pulse Resp B/P (MAP) Pulse Ox O2 Delivery O2 Flow Rate FiO2 04/14/20 12:00 98.2 74 20 111/76 (88) 98 04/14/20 12:00 75 04/14/20 09:20 82 127/87 04/14/20 09:00 Non-Rebreather 15.0 04/14/20 08:00 97.9 82 22 127/87 (100) 97 04/14/20 08:00 77 04/14/20 04:00 98.9 75 20 129/86 (100) 96 04/14/20 04:00 79 04/14/20 00:00 98.9 64 20 118/84 (95) 96 04/13/20 21:25 62 120/81 04/13/20 21:00 Non-Rebreather 15.0 04/13/20 20:00 98.7 62 20 120/81 (94) 97 04/13/20 20:00 84 04/13/20 16:00 96.7 67 21 120/87 (98) 96 04/13/20 16:00 84 Intake and Output 04/13/20 04/14/20 19:00 07:00 Intake Total 120 ml 300 ml Output Total 1200 ml Balance -1080 ml 300 ml Intake Oral 120 ml 300 ml Output Urine Total 1200 ml # Voids 7 # Bowel Movements 2 General Appearance: no acute distress HEENT: atraumatic Respiratory: chest wall non-tender, inspiratory wheezing Cardiovascular: normal rate Abdomen: soft, non tender Laboratory Tests 04/14/20 08:00: White Blood Count 6.8, Red Blood Count 5.47H, Hemoglobin 12.8, Hematocrit 44.3, Mean Corpuscular Volume 81, Mean Corpuscular Hemoglobin 23.3L, Mean Corpuscular Hemoglobin Concent 28.8L, Red Cell Distribution Width 15.3H, Platelet Count 392, Mean Platelet Volume 10.0, Neutrophils (%) (Auto) 80.3H, Lymphocytes (%) (Auto) 9.8L, Monocytes (%) (Auto) 8.7, Eosinophils (%) (Auto) 0.1, Basophils (%) (Auto) 1.1, Sodium Level 143, Potassium Level 4.8, Chloride Level 105, Carbon Dioxide Level 35H, Anion Gap 4L, Blood Urea Nitrogen 48H, Creatinine 0.9, Estimat Glomerular Filtration Rate > 60, Glucose Level 110H, Uric Acid 7.8H, Calcium Level 9.1, Phosphorus Level 4.0, Magnesium Level 2.3, Total Bilirubin 0.3, Direct Bilirubin 0.3, Aspartate Amino Transf (AST/SGOT) 119H, Alanine Aminotransferase (ALT/SGPT) 112H, Alkaline Phosphatase 102, Total Protein 8.3H, Albumin 2.3L, Globulin 6.0, Albumin/Globulin Ratio 0.4L 04/14/20 13:55: Arterial Blood pH 7.341L, Arterial Blood Partial Pressure CO2 64.8*H, Arterial Blood Partial Pressure O2 90.6, Arterial Blood HCO3 34.3H, Arterial Blood Oxygen Saturation 95.9, Arterial Blood Base Excess 6.5H, Fausto Test Positive Current Medications Medications (Trade) Dose Ordered Sig/Arturo Route PRN Reason Start Time Stop Time Status Last Admin Dose Admin Acetaminophen (Tylenol) 650 mg Q4H PRN ORAL Temp >100.5 04/11/20 05:30 05/11/20 05:29 04/11/20 05:45 Albuterol Sulfate (Proventil MDI) 2 puff Q4H PRN INH Shortness of Breath 04/12/20 11:00 07/11/20 10:59 04/12/20 18:23 Aspirin (Ecotrin) 81 mg DAILY ORAL 04/12/20 09:00 05/27/20 08:59 04/14/20 09:19 Docusate Sodium (Colace) 100 mg THREE TIMES A DAY ORAL 04/12/20 18:00 05/12/20 17:59 04/14/20 13:18 Enoxaparin Sodium (Lovenox) 40 mg DAILY SUBQ 04/10/20 09:00 07/09/20 08:59 04/14/20 09:22 Furosemide (Lasix) 40 mg DAILY IV 04/13/20 09:00 05/13/20 08:59 04/14/20 09:00 Guaifenesin/ Dextromethorphan (Robitussin DM Syrup) 15 ml Q6H PRN ORAL For Cough 04/10/20 19:00 07/09/20 18:59 04/12/20 09:22 Methylprednisolone Sodium Succinate (Solu-MEDROL) 40 mg EVERY 12 HOURS IVP 04/14/20 11:15 07/13/20 11:14 04/14/20 11:35 Metoprolol Tartrate (Lopressor) 12.5 mg Q12HR ORAL 04/11/20 21:00 07/10/20 20:59 04/14/20 09:20 Morphine Sulfate (Morphine Sulfate) 2 mg Q4H PRN IVP For Pain 04/09/20 18:15 04/16/20 18:14 04/11/20 00:05 Pantoprazole (Protonix) 40 mg EVERY 12 HOURS ORAL 04/12/20 21:00 05/12/20 20:59 04/14/20 09:21 Remdesivir 100 mg/ Sodium Chloride 250 ml @ 250 mls/hr Q24H IV 04/12/20 16:00 04/15/20 16:59 04/13/20 16:00 Assessment/Plan Assessment/Plan 1. COVID-19 pneumonia - We will continue steroids and broad-spectrum antibiotics - on remdesivir per ID - on 15L NRB, Sat at 94%; will wean down as tolerated - Albuterol PRN wheezing - s/p dexamethasone, now on solumedrol 2. Elevated inflammatory markers -continue Lovenox for DVT prophylaxis - Venous duplex neg for DVT (04/10) 3. GIANNA -IV fluids -Management per primary MD 4. Diabetes mellitus with hyperglycemia -Patient reports taking Metformin at home 5. Lactic acidemia - per primary MD 6. Hypocalcemia - per primary MD 7. Transaminitis, likely secondary to #1 - monitor AST, ALT 8. Elevated troponin -Serial troponin 9. New onset fever; resolved - Shou=187.9 - no leukocytosis - monitor temp The care for this patient was discussed with my supervising physician. Time spent for this case was approximately 31 minutes. Vitaly Mcginnis Apr 14, 2020 15:11
[2020-04-14] MEDS: Maintenance Dose:Remdesivir 100mg/NS 230ml x 4 Doses IV SCH ×2 (15:26)
--- NOTE | 2020-04-14 16:57 | NUR ---
NURSE NOTES: Attempted to wean down patient, process was unsuccessful at this time. Patient was attempted to be weaned down from 15L nonrebreather 100% O2 to 6L 50% O2 and patient desaturated below normal limits. Patient was placed back on nonrebreather 15L 100% O2 and oxygen saturation returned to normal limits.
--- NOTE | 2020-04-14 19:35 | NUR ---
NURSE NOTES: Received report from mitchell sultana. patient on bed, awake and verbally responsive. able to make needs known. on non- rebreather mask at 15lpm sating 96-99%. no sob. denies any pain at the moment. noted with external urinary catheter. iv access on the left forearm saline lock. per LACEY sultana Through out his shift." program director substance abuse in placed. reiterated to call and ask for assistance to prevent fall or injury. bed locked and in lowest position. call light and light button within easy reach. bed alarm on. will continue plan of care.
--- NOTE | 2020-04-14 19:35 | NUR ---
NURSE NOTES: Received report from mitchell sultana. patient on bed, awake and verbally responsive. able to make needs known. on non- rebreather mask at 15lpm sating 96-99%. no sob. denies any pain at the moment. noted with external urinary catheter. iv access on the left forearm saline lock. per LACEY sultana Through out his shift." reiterated to call and ask for assistance to prevent fall or injury. bed locked and in lowest position. call light and light button within easy reach. bed alarm on. will continue plan of care.
--- NOTE | 2020-04-14 19:37 | NUR ---
NURSE HAND-OFF REPORT: Important Events on Shift:[Remdesevir, solumedrol] Patient Status: [Full code] Diet: [Regular Diet] Pending Orders: [N/A] Pending Results/Labs:[N/A] Pending MD notification:[N/A] Latest Vital Signs: Temperature 97.7 , Pulse 74 , B/P 123 /83 , Respiratory Rate 22 , O2 SAT 98 , Nasal Cannula, O2 Flow Rate 15.0 . Vital Sign Comment: [] EKG Rhythm: Sinus Rhythm Rhythm change?: N MD Notified?: - MD Response: Latest Velasquez Fall Score: 45 Fall Risk: High Risk Safety Measures: Call light Within Reach, Bed Alarm Zone 1, Side Rails Side Rails x3, Bed position Low and Locked. Fall Precautions: Yellow Socks Yellow Gown Door Sign Patient Fall Education Report given to [Jamal/Zoë].
[2020-04-15] VITALS: BP 120/82
[2020-04-15 04:00] VITALS: BP 132/84
[2020-04-15 06:51] LABS: HEMATOCRIT 43.2 % (37.0-47.0); HEMOGLOBIN 12.2 G/DL (12.0-16.0); MEAN CORPUSCULAR VOLUME 82 FL (80-99); PLATELET COUNT 390 K/UL (150-450); RED BLOOD COUNT 5.27 M/UL (4.20-5.40); RED CELL DISTRIBUTION WIDTH 15.3 % (11.6-14.8); WHITE BLOOD COUNT 4.3 K/UL (4.8-10.8)
[2020-04-15 06:53] LABS: BASOPHILS % (AUTO) 1.5 % (0.0-2.0); LYMPHOCYTES % (AUTO) 7.4 % (20.0-45.0); MONOCYTES % (AUTO) 5.1 % (1.0-10.0); NEUTROPHILS % (AUTO) 85.5 % (45.0-75.0)
[2020-04-15 07:07] LABS: ALANINE AMINOTRANSFERASE 119 U/L (12-78); ALBUMIN 2.3 G/DL (3.4-5.0); ALBUMIN/GLOBULIN RATIO 0.4 (1.0-2.7); ALKALINE PHOSPHATASE 104 U/L (46-116); ANION GAP 2 mmol/L (5-15); ASPARTATE AMINO TRANSFERASE 92 U/L (15-37); BILIRUBIN,DIRECT 0.3 MG/DL (0.0-0.3); BILIRUBIN,TOTAL 0.4 MG/DL (0.2-1.0); BLOOD UREA NITROGEN 42 mg/dL (7-18); CALCIUM 9.4 MG/DL (8.5-10.1); CARBON DIOXIDE 37 MMOL/L (21-32); CHLORIDE 104 MMOL/L (98-107); CREATININE 0.9 MG/DL (0.55-1.30); POTASSIUM 4.8 MMOL/L (3.5-5.1); SODIUM 142 MMOL/L (136-145)
--- NOTE | 2020-04-15 07:25 | NUR ---
NURSE HAND-OFF: Important Events on Shift: bm today; on non-rebreather mask @ 15 lpm sating 95-99%. no sob. Patient Status: stable Diet: regular Pending Orders: Pending Results/Labs: Pending MD notification: Latest Vital Signs: Temperature 97.7 , Pulse 68 , B/P 132 /84 , Respiratory Rate 24 , O2 SAT 96 , Nasal Cannula, O2 Flow Rate 15.0 . Vital Sign Comment: Latest Velasquez Fall Score: 45 Fall Risk: High Risk Safety Measures: Call light Within Reach, Bed Alarm Zone 1, Side Rails Side Rails x3, Bed position Low and Locked. Fall Precautions: Yellow Socks Yellow Gown Door Sign Patient Fall Education Report given to mitchell sultana.
--- NOTE | 2020-04-15 07:54 | NUR ---
NURSE NOTES: Patient seen in bed in high fowlers position asleep with no acute signs of distress. The patient is on nonrebreather 15L with oxygen saturation within normal limits. Patient has a L 22G FA that is saline locked, clean, patent and intact. The patients bed is in lowest position, locked, side rails x3, bed alarm in zone 1 and call light within reach.
[2020-04-15 08:00] VITALS: BP 133/83
[2020-04-15] MEDS: Docusate 100mg cap ORAL SCH ×3 (08:51→17:13)
[2020-04-15] MEDS: Solu-MEDROL 40mg Inj IVP SCH ×2 (08:52→21:49)
[2020-04-15] MEDS: Aspirin EC 81mg tab ORAL SCH (08:52)
[2020-04-15] MEDS: Metoprolol Tartrate 12.5mg TAB ORAL SCH ×2 (08:52→21:50)
[2020-04-15] MEDS: Enoxaparin 40mg Inj SUBQ SCH (08:54)
--- NOTE | 2020-04-15 09:56 | Nephrology Progress Note ---
Assessment/Plan Problem List: (1) Pneumonia due to COVID-19 virus (2) Obese (3) CHF (congestive heart failure) (4) Hypoxia (5) GIANNA (acute kidney injury) (6) Hyperkalemia Assessment Hyperkalemia Azotemia Diastolic dysfunction Covid pneumonia Pulmonary hypertension Severe TR Diabetes mellitus Morbid obesity Proteinuria Plan April 15: Labs reviewed. Renal parameters are stable. Continue per consultants. April 14: Labs reviewed. Electrolytes acceptable. Continue to monitor renal parameters. April 13: Today's labs reviewed. Hyperkalemia resolved. Continue to monitor renal parameters. Previously DC IV fluid P.o. Kayexalate Continue per cardiology Monitor renal parameters and electrolytes Continue per pulmonary Per orders Subjective ROS Limited/Unobtainable: Yes Objective Objective Last 24 Hour Vital Signs Date Time Temp Pulse Resp B/P (MAP) Pulse Ox O2 Delivery O2 Flow Rate FiO2 04/15/20 09:00 Non-Rebreather 15.0 04/15/20 08:52 71 133/83 04/15/20 08:00 97.9 71 22 133/83 (100) 97 04/15/20 08:00 69 04/15/20 04:00 69 04/15/20 04:00 97.7 68 24 132/84 (100) 96 04/15/20 00:00 72 04/15/20 00:00 97.6 75 23 120/82 (95) 96 04/14/20 21:47 98.2 80 22 121/82 (95) 96 04/14/20 21:00 Non-Rebreather 15.0 04/14/20 20:49 80 121/82 04/14/20 20:00 98.2 80 22 121/83 (96) 95 04/14/20 20:00 82 04/14/20 16:00 73 04/14/20 16:00 97.7 74 22 123/83 (96) 98 04/14/20 12:00 98.2 74 20 111/76 (88) 98 04/14/20 12:00 75 Intake and Output 04/14/20 04/15/20 19:00 07:00 Intake Total 250 ml 450 ml Balance 250 ml 450 ml Intake Oral 250 ml 450 ml # Voids 2 2 # Bowel Movements 1 1 Current Medications Medications (Trade) Dose Ordered Sig/Arturo Route PRN Reason Start Time Stop Time Status Last Admin Dose Admin Acetaminophen (Tylenol) 650 mg Q4H PRN ORAL Temp >100.5 04/11/20 05:30 05/11/20 05:29 04/11/20 05:45 Albuterol Sulfate (Proventil MDI) 2 puff Q4H PRN INH Shortness of Breath 04/12/20 11:00 07/11/20 10:59 04/12/20 18:23 Aspirin (Ecotrin) 81 mg DAILY ORAL 04/12/20 09:00 05/27/20 08:59 04/15/20 08:52 Docusate Sodium (Colace) 100 mg THREE TIMES A DAY ORAL 04/12/20 18:00 05/12/20 17:59 04/15/20 08:51 Enoxaparin Sodium (Lovenox) 40 mg DAILY SUBQ 04/10/20 09:00 07/09/20 08:59 04/15/20 08:54 Furosemide (Lasix) 40 mg DAILY IV 04/13/20 09:00 05/13/20 08:59 04/15/20 08:53 Guaifenesin/ Dextromethorphan (Robitussin DM Syrup) 15 ml Q6H PRN ORAL For Cough 04/10/20 19:00 07/09/20 18:59 04/12/20 09:22 Methylprednisolone Sodium Succinate (Solu-MEDROL) 40 mg EVERY 12 HOURS IVP 04/14/20 11:15 07/13/20 11:14 04/15/20 08:52 Metoprolol Tartrate (Lopressor) 12.5 mg Q12HR ORAL 04/11/20 21:00 07/10/20 20:59 04/15/20 08:52 Morphine Sulfate (Morphine Sulfate) 2 mg Q4H PRN IVP For Pain 04/09/20 18:15 04/16/20 18:14 04/11/20 00:05 Pantoprazole (Protonix) 40 mg EVERY 12 HOURS ORAL 04/12/20 21:00 05/12/20 20:59 04/15/20 08:51 Remdesivir 100 mg/ Sodium Chloride 250 ml @ 250 mls/hr Q24H IV 04/12/20 16:00 04/15/20 16:59 04/14/20 15:26 Laboratory Tests 04/14/20 13:55: Arterial Blood pH 7.341L, Arterial Blood Partial Pressure CO2 64.8*H, Arterial Blood Partial Pressure O2 90.6, Arterial Blood HCO3 34.3H, Arterial Blood Oxygen Saturation 95.9, Arterial Blood Base Excess 6.5H, Fausto Test Positive 04/15/20 06:12: White Blood Count 4.3L, Red Blood Count 5.27, Hemoglobin 12.2, Hematocrit 43.2, Mean Corpuscular Volume 82, Mean Corpuscular Hemoglobin 23.1L, Mean Corpuscular Hemoglobin Concent 28.2L, Red Cell Distribution Width 15.3H, Platelet Count 390, Mean Platelet Volume 9.3, Neutrophils (%) (Auto) 85.5H, Lymphocytes (%) (Auto) 7.4L, Monocytes (%) (Auto) 5.1, Eosinophils (%) (Auto) 0.0, Basophils (%) (Auto) 1.5, Sodium Level 142, Potassium Level 4.8, Chloride Level 104, Carbon Dioxide Level 37H, Anion Gap 2L, Blood Urea Nitrogen 42H, Creatinine 0.9, Estimat Glomerular Filtration Rate > 60, Glucose Level 158H, Calcium Level 9.4, Total Bilirubin 0.4, Direct Bilirubin 0.3, Aspartate Amino Transf (AST/SGOT) 92H, Alanine Aminotransferase (ALT/SGPT) 119H, Alkaline Phosphatase 104, Total Protein 8.3H, Albumin 2.3L, Globulin 6.0, Albumin/Globulin Ratio 0.4L Height (Feet): 5 Height (Inches): 4.00 Weight (Pounds): 341 General Appearance: no apparent distress EENT: other - On nonrebreather mask Cardiovascular: normal rate Respiratory/Chest: decreased breath sounds Abdomen: distended Cristhian Vick MD Apr 15, 2020 09:56
[2020-04-15] MEDS ORDERED: Morphine Sulfate 2mg/ml Inj(IV/IM USE ONLY) IVP PRN (10:45)
--- NOTE | 2020-04-15 11:14 | Pulmonology Progress Note ---
Subjective ROS Limited/Unobtainable: Yes Interval Events: now on NRB Constitutional: Reports: anorexia HEENT: Repors: no symptoms Respiratory: Reports: no symptoms Cardiovascular: Reports: no symptoms Gastrointestinal/Abdominal: Reports: no symptoms Allergies: Coded Allergies: No Known Allergies (Unverified , 04/09/20) All Systems: reviewed and negative except above Objective Last 24 Hour Vital Signs Date Time Temp Pulse Resp B/P (MAP) Pulse Ox O2 Delivery O2 Flow Rate FiO2 04/15/20 09:00 Non-Rebreather 15.0 04/15/20 08:52 71 133/83 04/15/20 08:00 97.9 71 22 133/83 (100) 97 04/15/20 08:00 69 04/15/20 04:00 69 04/15/20 04:00 97.7 68 24 132/84 (100) 96 04/15/20 00:00 72 04/15/20 00:00 97.6 75 23 120/82 (95) 96 04/14/20 21:47 98.2 80 22 121/82 (95) 96 04/14/20 21:00 Non-Rebreather 15.0 04/14/20 20:49 80 121/82 04/14/20 20:00 98.2 80 22 121/83 (96) 95 04/14/20 20:00 82 04/14/20 16:00 73 04/14/20 16:00 97.7 74 22 123/83 (96) 98 04/14/20 12:00 98.2 74 20 111/76 (88) 98 04/14/20 12:00 75 Intake and Output 04/14/20 04/15/20 19:00 07:00 Intake Total 250 ml 450 ml Balance 250 ml 450 ml Intake Oral 250 ml 450 ml # Voids 2 2 # Bowel Movements 1 1 General Appearance: no acute distress HEENT: atraumatic Respiratory: chest wall non-tender, inspiratory wheezing Cardiovascular: normal rate Abdomen: soft, non tender Laboratory Tests 04/14/20 13:55: Arterial Blood pH 7.341L, Arterial Blood Partial Pressure CO2 64.8*H, Arterial Blood Partial Pressure O2 90.6, Arterial Blood HCO3 34.3H, Arterial Blood Oxygen Saturation 95.9, Arterial Blood Base Excess 6.5H, Fausto Test Positive 04/15/20 06:12: White Blood Count 4.3L, Red Blood Count 5.27, Hemoglobin 12.2, Hematocrit 43.2, Mean Corpuscular Volume 82, Mean Corpuscular Hemoglobin 23.1L, Mean Corpuscular Hemoglobin Concent 28.2L, Red Cell Distribution Width 15.3H, Platelet Count 390, Mean Platelet Volume 9.3, Neutrophils (%) (Auto) 85.5H, Lymphocytes (%) (Auto) 7.4L, Monocytes (%) (Auto) 5.1, Eosinophils (%) (Auto) 0.0, Basophils (%) (Auto) 1.5, Sodium Level 142, Potassium Level 4.8, Chloride Level 104, Carbon Dioxide Level 37H, Anion Gap 2L, Blood Urea Nitrogen 42H, Creatinine 0.9, Estimat Glomerular Filtration Rate > 60, Glucose Level 158H, Calcium Level 9.4, Total Bilirubin 0.4, Direct Bilirubin 0.3, Aspartate Amino Transf (AST/SGOT) 92H, Alanine Aminotransferase (ALT/SGPT) 119H, Alkaline Phosphatase 104, Total Protein 8.3H, Albumin 2.3L, Globulin 6.0, Albumin/Globulin Ratio 0.4L Current Medications Medications (Trade) Dose Ordered Sig/Arturo Route PRN Reason Start Time Stop Time Status Last Admin Dose Admin Acetaminophen (Tylenol) 650 mg Q4H PRN ORAL Temp >100.5 04/11/20 05:30 05/11/20 05:29 04/11/20 05:45 Albuterol Sulfate (Proventil MDI) 2 puff Q4H PRN INH Shortness of Breath 04/12/20 11:00 07/11/20 10:59 04/12/20 18:23 Aspirin (Ecotrin) 81 mg DAILY ORAL 04/12/20 09:00 05/27/20 08:59 04/15/20 08:52 Docusate Sodium (Colace) 100 mg THREE TIMES A DAY ORAL 04/12/20 18:00 05/12/20 17:59 04/15/20 08:51 Enoxaparin Sodium (Lovenox) 40 mg DAILY SUBQ 04/10/20 09:00 07/09/20 08:59 04/15/20 08:54 Furosemide (Lasix) 40 mg DAILY IV 04/13/20 09:00 05/13/20 08:59 04/15/20 08:53 Guaifenesin/ Dextromethorphan (Robitussin DM Syrup) 15 ml Q6H PRN ORAL For Cough 04/10/20 19:00 07/09/20 18:59 04/12/20 09:22 Methylprednisolone Sodium Succinate (Solu-MEDROL) 40 mg EVERY 12 HOURS IVP 04/14/20 11:15 07/13/20 11:14 04/15/20 08:52 Metoprolol Tartrate (Lopressor) 12.5 mg Q12HR ORAL 04/11/20 21:00 07/10/20 20:59 04/15/20 08:52 Morphine Sulfate (Morphine Sulfate) 2 mg Q4H PRN IVP For Pain 04/15/20 10:45 04/22/20 10:44 Pantoprazole (Protonix) 40 mg EVERY 12 HOURS ORAL 04/12/20 21:00 05/12/20 20:59 04/15/20 08:51 Remdesivir 100 mg/ Sodium Chloride 250 ml @ 250 mls/hr Q24H IV 04/12/20 16:00 04/15/20 16:59 04/14/20 15:26 Assessment/Plan Assessment/Plan 1. COVID-19 pneumonia - We will continue steroids and broad-spectrum antibiotics - on remdesivir per ID - on 15L NRB, Sat at 94%; will wean down as tolerated - Albuterol PRN wheezing - s/p dexamethasone, now on solumedrol 2. Elevated inflammatory markers -continue Lovenox for DVT prophylaxis - Venous duplex neg for DVT (04/10) 3. GIANNA -IV fluids -Management per primary MD 4. Diabetes mellitus with hyperglycemia -Patient reports taking Metformin at home 5. Lactic acidemia - per primary MD 6. Hypocalcemia - per primary MD 7. Transaminitis, likely secondary to #1 - monitor AST, ALT 8. Elevated troponin -Serial troponin 9. New onset fever; resolved - Mkij=827.9 - no leukocytosis - monitor temp The care for this patient was discussed with my supervising physician. Time spent for this case was approximately 31 minutes. Vitaly Mcginnis Apr 15, 2020 11:14
--- NOTE | 2020-04-15 11:49 | Infectious Diseases Prog Note ---
Assessment/Plan Assessment/Plan A 1. COVID19 pneumonia 2. diabetes mellitus 3. obesity 4. Hypoxemia P 1. Continue last day of remdesivir 2. continue dexamethasone day 6 3. continue isolation Subjective ROS Limited/Unobtainable: Yes Respiratory: Reports: shortness of breath, productive cough Allergies: Coded Allergies: No Known Allergies (Unverified , 04/09/20) Objective Last 24 Hour Vital Signs Date Time Temp Pulse Resp B/P (MAP) Pulse Ox O2 Delivery O2 Flow Rate FiO2 04/15/20 09:00 Non-Rebreather 15.0 04/15/20 08:52 71 133/83 04/15/20 08:00 97.9 71 22 133/83 (100) 97 04/15/20 08:00 69 04/15/20 04:00 69 04/15/20 04:00 97.7 68 24 132/84 (100) 96 04/15/20 00:00 72 04/15/20 00:00 97.6 75 23 120/82 (95) 96 04/14/20 21:47 98.2 80 22 121/82 (95) 96 04/14/20 21:00 Non-Rebreather 15.0 04/14/20 20:49 80 121/82 04/14/20 20:00 98.2 80 22 121/83 (96) 95 04/14/20 20:00 82 04/14/20 16:00 73 04/14/20 16:00 97.7 74 22 123/83 (96) 98 04/14/20 12:00 98.2 74 20 111/76 (88) 98 04/14/20 12:00 75 Height (Feet): 5 Height (Inches): 4.00 Weight (Pounds): 341 HEENT: mucous membranes moist Respiratory/Chest: other - O2 by NRB mask, 15 L/min Cardiovascular: normal rate Abdomen: soft, non tender Extremities: no edema Neurologic/Psychiatric: alert, responsive Laboratory Tests Test 04/14/20 13:55 04/15/20 06:12 Arterial Blood pH 7.341 (7.350-7.450) Arterial Blood Partial Pressure CO2 64.8 mmHg (35.0-45.0) *H Arterial Blood Partial Pressure O2 90.6 mmHg (75.0-100.0) Arterial Blood HCO3 34.3 mmol/L (22.0-26.0) H Arterial Blood Oxygen Saturation 95.9 % (95-100) Arterial Blood Base Excess 6.5 (-2-2) H Fausto Test Positive White Blood Count 4.3 K/UL (4.8-10.8) L Red Blood Count 5.27 M/UL (4.20-5.40) Hemoglobin 12.2 G/DL (12.0-16.0) Hematocrit 43.2 % (37.0-47.0) Mean Corpuscular Volume 82 FL (80-99) Mean Corpuscular Hemoglobin 23.1 PG (27.0-31.0) L Mean Corpuscular Hemoglobin Concent 28.2 G/DL (32.0-36.0) L Red Cell Distribution Width 15.3 % (11.6-14.8) H Platelet Count 390 K/UL (150-450) Mean Platelet Volume 9.3 FL (6.5-10.1) Neutrophils (%) (Auto) 85.5 % (45.0-75.0) H Lymphocytes (%) (Auto) 7.4 % (20.0-45.0) L Monocytes (%) (Auto) 5.1 % (1.0-10.0) Eosinophils (%) (Auto) 0.0 % (0.0-3.0) Basophils (%) (Auto) 1.5 % (0.0-2.0) Sodium Level 142 MMOL/L (136-145) Potassium Level 4.8 MMOL/L (3.5-5.1) Chloride Level 104 MMOL/L (98-107) Carbon Dioxide Level 37 MMOL/L (21-32) H Anion Gap 2 mmol/L (5-15) L Blood Urea Nitrogen 42 mg/dL (7-18) H Creatinine 0.9 MG/DL (0.55-1.30) Estimat Glomerular Filtration Rate > 60 mL/min (>60) Glucose Level 158 MG/DL (74-106) H Calcium Level 9.4 MG/DL (8.5-10.1) Total Bilirubin 0.4 MG/DL (0.2-1.0) Direct Bilirubin 0.3 MG/DL (0.0-0.3) Aspartate Amino Transf (AST/SGOT) 92 U/L (15-37) H Alanine Aminotransferase (ALT/SGPT) 119 U/L (12-78) H Alkaline Phosphatase 104 U/L (46-116) Total Protein 8.3 G/DL (6.4-8.2) H Albumin 2.3 G/DL (3.4-5.0) L Globulin 6.0 g/dL Albumin/Globulin Ratio 0.4 (1.0-2.7) L Current Medications Medications (Trade) Dose Ordered Sig/Arturo Route PRN Reason Start Time Stop Time Status Last Admin Dose Admin Acetaminophen (Tylenol) 650 mg Q4H PRN ORAL Temp >100.5 04/11/20 05:30 05/11/20 05:29 04/11/20 05:45 Albuterol Sulfate (Proventil MDI) 2 puff Q4H PRN INH Shortness of Breath 04/12/20 11:00 07/11/20 10:59 04/12/20 18:23 Aspirin (Ecotrin) 81 mg DAILY ORAL 04/12/20 09:00 05/27/20 08:59 04/15/20 08:52 Docusate Sodium (Colace) 100 mg THREE TIMES A DAY ORAL 04/12/20 18:00 05/12/20 17:59 04/15/20 08:51 Enoxaparin Sodium (Lovenox) 40 mg DAILY SUBQ 04/10/20 09:00 07/09/20 08:59 04/15/20 08:54 Furosemide (Lasix) 40 mg DAILY IV 04/13/20 09:00 05/13/20 08:59 04/15/20 08:53 Guaifenesin/ Dextromethorphan (Robitussin DM Syrup) 15 ml Q6H PRN ORAL For Cough 04/10/20 19:00 07/09/20 18:59 04/12/20 09:22 Methylprednisolone Sodium Succinate (Solu-MEDROL) 40 mg EVERY 12 HOURS IVP 04/14/20 11:15 07/13/20 11:14 04/15/20 08:52 Metoprolol Tartrate (Lopressor) 12.5 mg Q12HR ORAL 04/11/20 21:00 07/10/20 20:59 04/15/20 08:52 Morphine Sulfate (Morphine Sulfate) 2 mg Q4H PRN IVP For Pain 04/15/20 10:45 04/22/20 10:44 Pantoprazole (Protonix) 40 mg EVERY 12 HOURS ORAL 04/12/20 21:00 05/12/20 20:59 04/15/20 08:51 Remdesivir 100 mg/ Sodium Chloride 250 ml @ 250 mls/hr Q24H IV 04/12/20 16:00 04/15/20 16:59 04/14/20 15:26 Usman Gant MD Apr 15, 2020 11:49
--- NOTE | 2020-04-15 11:56 | Cardiac Electrophysiology PN ---
Assessment/Plan Assessment/Plan 1. Elevated troponin could be due to COVID myocarditis. The EKG does not show any acute ST-T wave abnormality. EF 65% . Continue aspirin and Lopressor. 2. Congestive heart failure with BNP of almost 10,000. EF 65%. Due to diastolic dysfunction On Lasix 40 iv daily 3. COVID pneumonia and respiratory failure, on 100% nonrebreather facemask, steroid, Remdesevir and broad-spectrum antibiotic. Fu by Dr. Carrero. 4. Severe TR and pulmonary HTN with PAP 70s. ? COPD. FU Dr Carrero 5. Diabetes. 6. Lactic acidemia. 7. Fever. Subjective Subjective Alert in NAD on 15 L NRB FM in covid isolation. Alert on her cell phone Objective Last 24 Hour Vital Signs Date Time Temp Pulse Resp B/P (MAP) Pulse Ox O2 Delivery O2 Flow Rate FiO2 04/15/20 09:00 Non-Rebreather 15.0 04/15/20 08:52 71 133/83 04/15/20 08:00 97.9 71 22 133/83 (100) 97 04/15/20 08:00 69 04/15/20 04:00 69 04/15/20 04:00 97.7 68 24 132/84 (100) 96 04/15/20 00:00 72 04/15/20 00:00 97.6 75 23 120/82 (95) 96 04/14/20 21:47 98.2 80 22 121/82 (95) 96 04/14/20 21:00 Non-Rebreather 15.0 04/14/20 20:49 80 121/82 04/14/20 20:00 98.2 80 22 121/83 (96) 95 04/14/20 20:00 82 04/14/20 16:00 73 04/14/20 16:00 97.7 74 22 123/83 (96) 98 04/14/20 12:00 98.2 74 20 111/76 (88) 98 04/14/20 12:00 75 Intake and Output 04/14/20 04/15/20 19:00 07:00 Intake Total 250 ml 450 ml Balance 250 ml 450 ml Intake Oral 250 ml 450 ml # Voids 2 2 # Bowel Movements 1 1 Laboratory Tests Test 04/14/20 13:55 1/26/21 06:12 Arterial Blood pH 7.341 (7.350-7.450) Arterial Blood Partial Pressure CO2 64.8 mmHg (35.0-45.0) *H Arterial Blood Partial Pressure O2 90.6 mmHg (75.0-100.0) Arterial Blood HCO3 34.3 mmol/L (22.0-26.0) H Arterial Blood Oxygen Saturation 95.9 % (95-100) Arterial Blood Base Excess 6.5 (-2-2) H Fausto Test Positive White Blood Count 4.3 K/UL (4.8-10.8) L Red Blood Count 5.27 M/UL (4.20-5.40) Hemoglobin 12.2 G/DL (12.0-16.0) Hematocrit 43.2 % (37.0-47.0) Mean Corpuscular Volume 82 FL (80-99) Mean Corpuscular Hemoglobin 23.1 PG (27.0-31.0) L Mean Corpuscular Hemoglobin Concent 28.2 G/DL (32.0-36.0) L Red Cell Distribution Width 15.3 % (11.6-14.8) H Platelet Count 390 K/UL (150-450) Mean Platelet Volume 9.3 FL (6.5-10.1) Neutrophils (%) (Auto) 85.5 % (45.0-75.0) H Lymphocytes (%) (Auto) 7.4 % (20.0-45.0) L Monocytes (%) (Auto) 5.1 % (1.0-10.0) Eosinophils (%) (Auto) 0.0 % (0.0-3.0) Basophils (%) (Auto) 1.5 % (0.0-2.0) Sodium Level 142 MMOL/L (136-145) Potassium Level 4.8 MMOL/L (3.5-5.1) Chloride Level 104 MMOL/L (98-107) Carbon Dioxide Level 37 MMOL/L (21-32) H Anion Gap 2 mmol/L (5-15) L Blood Urea Nitrogen 42 mg/dL (7-18) H Creatinine 0.9 MG/DL (0.55-1.30) Estimat Glomerular Filtration Rate > 60 mL/min (>60) Glucose Level 158 MG/DL (74-106) H Calcium Level 9.4 MG/DL (8.5-10.1) Total Bilirubin 0.4 MG/DL (0.2-1.0) Direct Bilirubin 0.3 MG/DL (0.0-0.3) Aspartate Amino Transf (AST/SGOT) 92 U/L (15-37) H Alanine Aminotransferase (ALT/SGPT) 119 U/L (12-78) H Alkaline Phosphatase 104 U/L (46-116) Total Protein 8.3 G/DL (6.4-8.2) H Albumin 2.3 G/DL (3.4-5.0) L Globulin 6.0 g/dL Albumin/Globulin Ratio 0.4 (1.0-2.7) L Objective HEAD AND NECK: No JVD. LUNGS: Decreased breath sounds. CARDIOVASCULAR: Tachycardic S1 and S2 with no gallop. ABDOMEN: Obese. EXTREMITIES: 1+ pitting edema. Dave Tijerina MD Apr 15, 2020 11:56
[2020-04-15 12:00] VITALS: BP 105/70
--- NOTE | 2020-04-15 14:08 | NUR ---
CASE MANAGEMENT:REVIEW 04/15/20 SI: COVID PNA. GIANNA. ELEVATED TROPONIN 97.4 77 22 105/70 97% ON 15L NRB WBC-4.6 AST/ALT+92/119 CO2+37 IS: IV LASIX QD IV REMDESIVIR Q24 (07/23) IV SOLUMEDROL 40MG Q12 ASA PO QD LOPRESSOR PO Q12 LOVENOX SQ QD : TELEMETRY STATUS DCP: FROM HOME PLAN: WEAN OXYGEN TOLERATED
--- NOTE | 2020-04-15 14:14 | General Progress Note ---
Subjective Constitutional: Reports: weakness Allergies: Coded Allergies: No Known Allergies (Unverified , 04/09/20) All Systems: reviewed and negative except above Subjective o2 mask sleepy Objective Last 24 Hour Vital Signs Date Time Temp Pulse Resp B/P (MAP) Pulse Ox O2 Delivery O2 Flow Rate FiO2 04/15/20 12:00 97.4 77 22 105/70 (82) 97 04/15/20 12:00 79 04/15/20 09:00 Non-Rebreather 15.0 04/15/20 08:52 71 133/83 04/15/20 08:00 97.9 71 22 133/83 (100) 97 04/15/20 08:00 69 04/15/20 04:00 69 04/15/20 04:00 97.7 68 24 132/84 (100) 96 04/15/20 00:00 72 04/15/20 00:00 97.6 75 23 120/82 (95) 96 04/14/20 21:47 98.2 80 22 121/82 (95) 96 04/14/20 21:00 Non-Rebreather 15.0 04/14/20 20:49 80 121/82 04/14/20 20:00 98.2 80 22 121/83 (96) 95 04/14/20 20:00 82 04/14/20 16:00 73 04/14/20 16:00 97.7 74 22 123/83 (96) 98 Intake and Output 04/14/20 04/15/20 19:00 07:00 Intake Total 250 ml 450 ml Balance 250 ml 450 ml Intake Oral 250 ml 450 ml # Voids 2 2 # Bowel Movements 1 1 Laboratory Tests 04/15/20 06:12: White Blood Count 4.3L, Red Blood Count 5.27, Hemoglobin 12.2, Hematocrit 43.2, Mean Corpuscular Volume 82, Mean Corpuscular Hemoglobin 23.1L, Mean Corpuscular Hemoglobin Concent 28.2L, Red Cell Distribution Width 15.3H, Platelet Count 390, Mean Platelet Volume 9.3, Neutrophils (%) (Auto) 85.5H, Lymphocytes (%) (Auto) 7.4L, Monocytes (%) (Auto) 5.1, Eosinophils (%) (Auto) 0.0, Basophils (%) (Auto) 1.5, Sodium Level 142, Potassium Level 4.8, Chloride Level 104, Carbon Dioxide Level 37H, Anion Gap 2L, Blood Urea Nitrogen 42H, Creatinine 0.9, Estimat Glomerular Filtration Rate > 60, Glucose Level 158H, Calcium Level 9.4, Total Bilirubin 0.4, Direct Bilirubin 0.3, Aspartate Amino Transf (AST/SGOT) 92H, Alanine Aminotransferase (ALT/SGPT) 119H, Alkaline Phosphatase 104, Total Protein 8.3H, Albumin 2.3L, Globulin 6.0, Albumin/Globulin Ratio 0.4L Height (Feet): 5 Height (Inches): 4.00 Weight (Pounds): 341 General Appearance: lethargic EENT: normal ENT inspection Neck: normal alignment Cardiovascular: normal peripheral pulses, normal rate, regular rhythm Respiratory/Chest: chest wall non-tender, lungs clear, normal breath sounds Abdomen: normal bowel sounds, non tender, soft Extremities: normal inspection Edema: no edema noted Arm (L), no edema noted Arm (R), no edema noted Leg (L), no edema noted Leg (R), no edema noted Pedal (L), no edema noted Pedal (R), no edema noted Generalized Neurologic: motor weakness Skin: normal pigmentation, warm/dry Assessment/Plan Problem List: (1) HTN (hypertension) ICD Codes: I10 - Essential (primary) hypertension SNOMED: 92144252 (2) Diabetes ICD Codes: E11.9 - Type 2 diabetes mellitus without complications SNOMED: 98278662 (3) Obese ICD Codes: E66.9 - Obesity, unspecified SNOMED: 588420892, 132110613 (4) CHF (congestive heart failure) ICD Codes: I50.9 - Heart failure, unspecified SNOMED: 94642620 (5) Dyspnea ICD Codes: R06.00 - Dyspnea, unspecified SNOMED: 351476465 (6) Pneumonia due to COVID-19 virus ICD Codes: U07.1 - COVID-19; J12.82 - Pneumonia due to coronavirus disease 2019 SNOMED: 325362436545689953 (7) Respiratory distress ICD Codes: R06.03 - Acute respiratory distress SNOMED: 680995593 (8) Hypoxia ICD Codes: R09.02 - Hypoxemia SNOMED: 900970277 (9) COVID-19 ICD Codes: U07.1 - COVID-19 SNOMED: 267708776 Status: unchanged Assessment/Plan: o2 pum tx abx bp bs control cardio f/u cbc bmp am Dawood Mason DO Apr 15, 2020 14:14
[2020-04-15] MEDS: Maintenance Dose:Remdesivir 100mg/NS 230ml x 4 Doses IV SCH ×2 (15:39)
--- NOTE | 2020-04-15 15:53 | NUR ---
INSURANCE CLINCALS AND REVIEW FAXED TO [facility] T: [phone] F:[phone]
[2020-04-15 16:00] VITALS: BP 119/83
--- NOTE | 2020-04-15 18:46 | NUR ---
NURSE HAND-OFF REPORT: Important Events on Shift:[Remdesevir, renewed morphine order, sat at edge of bed with PT] Patient Status: [Full code] Diet: [Regular Diet] Pending Orders: [N/A] Pending Results/Labs:[N/A] Pending MD notification:[N/A] Latest Vital Signs: Temperature 97.7 , Pulse 70 , B/P 119 /83 , Respiratory Rate 22 , O2 SAT 100 , Nasal Cannula, O2 Flow Rate 15.0 . Vital Sign Comment: [] EKG Rhythm: Sinus Rhythm Rhythm change?: Y MD Notified?: N - MD Response: Latest Velasquez Fall Score: 45 Fall Risk: High Risk Safety Measures: Call light Within Reach, Bed Alarm Zone 1, Side Rails Side Rails x3, Bed position Low and Locked. Fall Precautions: Yellow Socks Yellow Gown Door Sign Patient Fall Education Report given to [SEGUNDO Hartley].
--- NOTE | 2020-04-15 19:10 | NUR ---
NURSE NOTES: Received report from SEGUNDO Banda; AOX4, noted comfortable in bed; on O2 therapy nonrebreather mask 15L, in no acute distress; denies any pain nor discomfort; purewick device in place; with peripheral IV site on L forearm 22 gauge, intact and patent; with mul;tiple skin issues; will monitor throughout shift; turn q 2 hrs and prn; call light within reach; side rails x 3; bed locked and in low psoition; will continue to monitor.
[2020-04-15 20:00] VITALS: BP 119/85
--- NOTE | 2020-04-15 23:50 | NUR ---
NURSE NOTES: Russell, RT, tried weaning pt off nonrebreather mask 15L using venturi mask 6L FiO2 58% but pt noted with desaturation in the 80s; Per RT, he will endorse in AM to use Venturi 10L when available; placed back on non-rebreather mask 15L with O2 sat >92%; will continue to monitor.
[2020-04-16] VITALS: BP 121/77
[2020-04-16 04:00] VITALS: BP 121/78
[2020-04-16 04:55] LABS: HEMATOCRIT 42.9 % (37.0-47.0); HEMOGLOBIN 11.9 G/DL (12.0-16.0); MEAN CORPUSCULAR VOLUME 83 FL (80-99); PLATELET COUNT 363 K/UL (150-450); RED BLOOD COUNT 5.18 M/UL (4.20-5.40); RED CELL DISTRIBUTION WIDTH 15.4 % (11.6-14.8); WHITE BLOOD COUNT 6.8 K/UL (4.8-10.8)
[2020-04-16 05:22] LABS: CALCIUM 8.9 MG/DL (8.5-10.1); CREATININE 1.1 MG/DL (0.55-1.30); POTASSIUM 5.2 MMOL/L (3.5-5.1)
--- NOTE | 2020-04-16 07:23 | Cardiac Electrophysiology PN ---
Assessment/Plan Assessment/Plan 1. Elevated troponin could be due to COVID myocarditis. The EKG does not show any acute ST-T wave abnormality. EF 65% . Continue aspirin and Lopressor. 2. Congestive heart failure with BNP of almost 10,000. EF 65%. Due to diastolic dysfunction On Lasix 40 iv daily 3. COVID pneumonia and respiratory failure, on 100% nonrebreather facemask, steroid, Remdesevir and broad-spectrum antibiotic. Fu by Dr. Carrero. 4. Severe TR and pulmonary HTN with PAP 70s. ? COPD. FU Dr Carrero 5. Diabetes. 6. Lactic acidemia. 7. Fever. DONTA RN Subjective Subjective Alert in NAD on 15 L NRB FM in covid isolation. In SR off restraints Objective Last 24 Hour Vital Signs Date Time Temp Pulse Resp B/P (MAP) Pulse Ox O2 Delivery O2 Flow Rate FiO2 04/16/20 04:00 78 04/16/20 04:00 97.7 73 28 121/78 (92) 97 04/16/20 00:00 97.9 74 24 121/77 (92) 96 04/16/20 00:00 76 04/15/20 21:50 85 119/85 04/15/20 21:00 Non-Rebreather 15.0 04/15/20 20:00 82 04/15/20 20:00 98.2 85 32 119/85 (96) 96 04/15/20 16:00 97.7 70 22 119/83 (95) 100 04/15/20 16:00 79 04/15/20 12:00 97.4 77 22 105/70 (82) 97 04/15/20 12:00 79 04/15/20 09:00 Non-Rebreather 15.0 04/15/20 08:52 71 133/83 04/15/20 08:00 97.9 71 22 133/83 (100) 97 04/15/20 08:00 69 Intake and Output 0 04/15/20 04/16/20 19:00 07:00 Intake Total 350 ml 350 ml Output Total 800 ml 800 ml Balance -450 ml -450 ml Intake Oral 350 ml 350 ml Output Urine Total 800 ml 800 ml # Voids 2 Laboratory Tests Test 04/16/20 04:47 White Blood Count 6.8 K/UL (4.8-10.8) # Red Blood Count 5.18 M/UL (4.20-5.40) Hemoglobin 11.9 G/DL (12.0-16.0) L Hematocrit 42.9 % (37.0-47.0) Mean Corpuscular Volume 83 FL (80-99) Mean Corpuscular Hemoglobin 23.0 PG (27.0-31.0) L Mean Corpuscular Hemoglobin Concent 27.7 G/DL (32.0-36.0) L Red Cell Distribution Width 15.4 % (11.6-14.8) H Platelet Count 363 K/UL (150-450) Mean Platelet Volume 9.3 FL (6.5-10.1) Neutrophils (%) (Auto) % (45.0-75.0) Lymphocytes (%) (Auto) % (20.0-45.0) Monocytes (%) (Auto) % (1.0-10.0) Eosinophils (%) (Auto) % (0.0-3.0) Basophils (%) (Auto) % (0.0-2.0) Neutrophils % (Manual) Pending Lymphocytes % (Manual) Pending Platelet Estimate Pending Platelet Morphology Pending Sodium Level 145 MMOL/L (136-145) Potassium Level 5.2 MMOL/L (3.5-5.1) H Chloride Level 105 MMOL/L (98-107) Carbon Dioxide Level 40 MMOL/L (21-32) H Anion Gap 0 mmol/L (5-15) L Blood Urea Nitrogen 38 mg/dL (7-18) H Creatinine 1.1 MG/DL (0.55-1.30) Estimat Glomerular Filtration Rate 55.0 mL/min (>60) Glucose Level 135 MG/DL (74-106) H Calcium Level 8.9 MG/DL (8.5-10.1) Objective HEAD AND NECK: No JVD. LUNGS: Decreased breath sounds. CARDIOVASCULAR: Tachycardic S1 and S2 with no gallop. ABDOMEN: Obese. EXTREMITIES: 1+ pitting edema. Dave Tijerina MD Apr 16, 2020 07:23
--- NOTE | 2020-04-16 07:30 | NUR ---
NURSE HAND-OFF REPORT: Important Events on Shift: Unable to tolerate Venturi mask 6L FIo2 58%, desaturating to 87% Patient Status: AOX4, within baseline Diet: regular, thin liquids Pending Orders: N Pending Results/Labs: AM labs Pending MD notification: N Latest Vital Signs: Temperature 97.7 , Pulse 78 , B/P 121 /78 , Respiratory Rate 28 , O2 SAT 97 , Nasal Cannula, O2 Flow Rate 15.0 . Vital Sign Comment: stable EKG Rhythm: Sinus Rhythm Rhythm change?: N MD Notified?: N - MD Response: Latest Velasquez Fall Score: 35 Fall Risk: Medium Risk Safety Measures: Call light Within Reach, Bed Alarm Zone 1, Side Rails Side Rails x3, Bed position Low and Locked. Fall Precautions: Patient Fall Education Report given to SEGUNDO Perea.
--- NOTE | 2020-04-16 07:55 | NUR ---
NURSE NOTES: Report received from Nahomy RN. Patient seen on rounds, asleep but easily rousable, on NRM at 15lpm, nurse reports pt was unable to tolerate weaning to venturi mask last night at 6lpm, will reassess with RT. PIV on left forearm patent and intact. Purewick on and draining. Bed low and locked, siderails up x2, call light placed within reach and instructed to call nurse for assistance. Will continue to monitor.
[2020-04-16 08:00] VITALS: BP 120/77
--- NOTE | 2020-04-16 08:29 | NUR ---
CASE MANAGEMENT:REVIEW 04/16/20 SI: COVID PNA. GIANNA. ELEVATED TROPONIN 97.7 73 28 121/78 97% ON 15L NRB K+5.2 BUN+38 IS: IV LASIX QD IV SOLUMEDROL 40MG Q12 ASA PO QD LOPRESSOR PO Q12 LOVENOX SQ QD : TELEMETRY STATUS DCP: FROM HOME PLAN: WEAN OXYGEN TOLERATED COMPLETED REMDESIVIR
[2020-04-16] MEDS: Aspirin EC 81mg tab ORAL SCH (08:39)
[2020-04-16] MEDS: Docusate 100mg cap ORAL SCH ×3 (08:39→17:12)
[2020-04-16] MEDS: Solu-MEDROL 40mg Inj IVP SCH ×2 (08:40→20:55)
[2020-04-16] MEDS: Metoprolol Tartrate 12.5mg TAB ORAL SCH ×2 (08:40→20:54)
[2020-04-16] MEDS: Enoxaparin 40mg Inj SUBQ SCH (08:41)
[2020-04-16] MEDS ORDERED: Sodium Polystyrene Sulfonate 15gm Powder ORAL SCH (09:15)
--- NOTE | 2020-04-16 09:18 | General Progress Note ---
Subjective Constitutional: Reports: weakness Allergies: Coded Allergies: No Known Allergies (Unverified , 04/09/20) All Systems: reviewed and negative except above Subjective o2 mask sleepy Objective Last 24 Hour Vital Signs Date Time Temp Pulse Resp B/P (MAP) Pulse Ox O2 Delivery O2 Flow Rate FiO2 04/16/20 08:40 78 120/77 04/16/20 04:00 78 04/16/20 04:00 97.7 73 28 121/78 (92) 97 04/16/20 00:00 97.9 74 24 121/77 (92) 96 04/16/20 00:00 76 04/15/20 21:50 85 119/85 04/15/20 21:00 Non-Rebreather 15.0 04/15/20 20:00 82 04/15/20 20:00 98.2 85 32 119/85 (96) 96 04/15/20 16:00 97.7 70 22 119/83 (95) 100 04/15/20 16:00 79 04/15/20 12:00 97.4 77 22 105/70 (82) 97 04/15/20 12:00 79 Intake and Output 04/15/20 04/16/20 19:00 07:00 Intake Total 350 ml 350 ml Output Total 800 ml 800 ml Balance -450 ml -450 ml Intake Oral 350 ml 350 ml Output Urine Total 800 ml 800 ml # Voids 2 Laboratory Tests 04/16/20 04:47: White Blood Count 6.8#, Red Blood Count 5.18, Hemoglobin 11.9L, Hematocrit 42.9, Mean Corpuscular Volume 83, Mean Corpuscular Hemoglobin 23.0L, Mean Corpuscular Hemoglobin Concent 27.7L, Red Cell Distribution Width 15.4H, Platelet Count 363, Mean Platelet Volume 9.3, Neutrophils (%) (Auto) , Lymphocytes (%) (Auto) , Monocytes (%) (Auto) , Eosinophils (%) (Auto) , Basophils (%) (Auto) , Differential Total Cells Counted 100, Neutrophils % (Manual) 83H, Lymphocytes % (Manual) 10L, Monocytes % (Manual) 7, Eosinophils % (Manual) 0, Basophils % (Manual) 0, Band Neutrophils 0, Platelet Estimate Adequate, Platelet Morphology Normal, Hypochromasia 1+, Anisocytosis 1+, Sodium Level 145, Potassium Level 5.2H, Chloride Level 105, Carbon Dioxide Level 40H, Anion Gap 0L, Blood Urea Nitrogen 38H, Creatinine 1.1, Estimat Glomerular Filtration Rate 55.0, Glucose L evel 135H, Calcium Level 8.9 Height (Feet): 5 Height (Inches): 4.00 Weight (Pounds): 341 General Appearance: lethargic EENT: normal ENT inspection Neck: normal alignment Cardiovascular: normal peripheral pulses, normal rate, regular rhythm Respiratory/Chest: chest wall non-tender, lungs clear, normal breath sounds Abdomen: normal bowel sounds, non tender, soft Extremities: normal inspection Edema: no edema noted Arm (L), no edema noted Arm (R), no edema noted Leg (L), no edema noted Leg (R), no edema noted Pedal (L), no edema noted Pedal (R), no edema noted Generalized Neurologic: motor weakness Skin: normal pigmentation, warm/dry Assessment/Plan Problem List: (1) HTN (hypertension) ICD Codes: I10 - Essential (primary) hypertension SNOMED: 71354595 (2) Diabetes ICD Codes: E11.9 - Type 2 diabetes mellitus without complications SNOMED: 31372037 (3) Obese ICD Codes: E66.9 - Obesity, unspecified SNOMED: 267286956, 086241180 (4) CHF (congestive heart failure) ICD Codes: I50.9 - Heart failure, unspecified SNOMED: 22687806 (5) Dyspnea ICD Codes: R06.00 - Dyspnea, unspecified SNOMED: 180869844 (6) Pneumonia due to COVID-19 virus ICD Codes: U07.1 - COVID-19; J12.82 - Pneumonia due to coronavirus disease 2019 SNOMED: 168936658896289262 (7) Respiratory distress ICD Codes: R06.03 - Acute respiratory distress SNOMED: 143744051 (8) Hypoxia ICD Codes: R09.02 - Hypoxemia SNOMED: 056283519 (9) COVID-19 ICD Codes: U07.1 - COVID-19 SNOMED: 407267758 Status: unchanged Assessment/Plan: o2 pum tx abx bp bs control cardio f/u cbc bmp am Dawood Mason DO Apr 16, 2020 09:18
--- NOTE | 2020-04-16 11:08 | Infectious Diseases Prog Note ---
Assessment/Plan Assessment/Plan antibiotics : none A 1. covid 19 pneumonia on 15 liters O2 with 99 % saturation s/p remdesivir 2. diabetes mellitus 3. obesity P 1. continue solumedrol 2. continue isolation Subjective ROS Limited/Unobtainable: Yes Allergies: Coded Allergies: No Known Allergies (Unverified , 04/09/20) Objective Last 24 Hour Vital Signs Date Time Temp Pulse Resp B/P (MAP) Pulse Ox O2 Delivery O2 Flow Rate FiO2 04/16/20 09:00 Non-Rebreather 15.0 04/16/20 08:40 78 120/77 04/16/20 08:00 96.3 78 22 120/77 (91) 99 04/16/20 08:00 75 04/16/20 04:00 78 04/16/20 04:00 97.7 73 28 121/78 (92) 97 04/16/20 00:00 97.9 74 24 121/77 (92) 96 04/16/20 00:00 76 04/15/20 21:50 85 119/85 04/15/20 21:00 Non-Rebreather 15.0 04/15/20 20:00 82 04/15/20 20:00 98.2 85 32 119/85 (96) 96 04/15/20 16:00 97.7 70 22 119/83 (95) 100 04/15/20 16:00 79 04/15/20 12:00 97.4 77 22 105/70 (82) 97 04/15/20 12:00 79 Height (Feet): 5 Height (Inches): 4.00 Weight (Pounds): 341 Laboratory Tests Test 04/16/20 04:47 White Blood Count 6.8 K/UL (4.8-10.8) # Red Blood Count 5.18 M/UL (4.20-5.40) Hemoglobin 11.9 G/DL (12.0-16.0) L Hematocrit 42.9 % (37.0-47.0) Mean Corpuscular Volume 83 FL (80-99) Mean Corpuscular Hemoglobin 23.0 PG (27.0-31.0) L Mean Corpuscular Hemoglobin Concent 27.7 G/DL (32.0-36.0) L Red Cell Distribution Width 15.4 % (11.6-14.8) H Platelet Count 363 K/UL (150-450) Mean Platelet Volume 9.3 FL (6.5-10.1) Neutrophils (%) (Auto) % (45.0-75.0) Lymphocytes (%) (Auto) % (20.0-45.0) Monocytes (%) (Auto) % (1.0-10.0) Eosinophils (%) (Auto) % (0.0-3.0) Basophils (%) (Auto) % (0.0-2.0) Differential Total Cells Counted 100 Neutrophils % (Manual) 83 % (45-75) H Lymphocytes % (Manual) 10 % (20-45) L Monocytes % (Manual) 7 % (1-10) Eosinophils % (Manual) 0 % (0-3) Basophils % (Manual) 0 % (0-2) Band Neutrophils 0 % (0-8) Platelet Estimate Adequate Platelet Morphology Normal Hypochromasia 1+ Anisocytosis 1+ Sodium Level 145 MMOL/L (136-145) Potassium Level 5.2 MMOL/L (3.5-5.1) H Chloride Level 105 MMOL/L (98-107) Carbon Dioxide Level 40 MMOL/L (21-32) H Anion Gap 0 mmol/L (5-15) L Blood Urea Nitrogen 38 mg/dL (7-18) H Creatinine 1.1 MG/DL (0.55-1.30) Estimat Glomerular Filtration Rate 55.0 mL/min (>60) Glucose Level 135 MG/DL (74-106) H Calcium Level 8.9 MG/DL (8.5-10.1) Current Medications Medications (Trade) Dose Ordered Sig/Arturo Route PRN Reason Start Time Stop Time Status Last Admin Dose Admin Acetaminophen (Tylenol) 650 mg Q4H PRN ORAL Temp >100.5 04/11/20 05:30 05/11/20 05:29 04/11/20 05:45 Albuterol Sulfate (Proventil MDI) 2 puff Q4H PRN INH Shortness of Breath 04/12/20 11:00 07/11/20 10:59 04/12/20 18:23 Aspirin (Ecotrin) 81 mg DAILY ORAL 04/12/20 09:00 05/27/20 08:59 04/16/20 08:39 Docusate Sodium (Colace) 100 mg THREE TIMES A DAY ORAL 04/12/20 18:00 05/12/20 17:59 04/16/20 08:39 Enoxaparin Sodium (Lovenox) 40 mg DAILY SUBQ 04/10/20 09:00 07/09/20 08:59 04/16/20 08:41 Furosemide (Lasix) 40 mg DAILY IV 04/13/20 09:00 05/13/20 08:59 04/16/20 08:40 Guaifenesin/ Dextromethorphan (Robitussin DM Syrup) 15 ml Q6H PRN ORAL For Cough 04/10/20 19:00 07/09/20 18:59 04/12/20 09:22 Methylprednisolone Sodium Succinate (Solu-MEDROL) 40 mg EVERY 12 HOURS IVP 04/14/20 11:15 07/13/20 11:14 04/16/20 08:40 Metoprolol Tartrate (Lopressor) 12.5 mg Q12HR ORAL 04/11/20 21:00 07/10/20 20:59 04/16/20 08:40 Morphine Sulfate (Morphine Sulfate) 2 mg Q4H PRN IVP For Pain 04/15/20 10:45 04/22/20 10:44 Pantoprazole (Protonix) 40 mg EVERY 12 HOURS ORAL 04/12/20 21:00 05/12/20 20:59 04/16/20 08:39 Sodium Polystyrene Sulfonate (Kayexalate) 30 gm ONCE ORAL 04/16/20 09:15 04/16/20 11:30 04/16/20 09:29 Leo Lucero MD Apr 16, 2020 11:08
--- NOTE | 2020-04-16 11:10 | Nephrology Progress Note ---
Assessment/Plan Problem List: (1) Pneumonia due to COVID-19 virus (2) Obese (3) CHF (congestive heart failure) (4) Hypoxia (5) GIANNA (acute kidney injury) (6) Hyperkalemia Assessment Hyperkalemia Azotemia Diastolic dysfunction Covid pneumonia Pulmonary hypertension Severe TR Diabetes mellitus Morbid obesity Proteinuria Plan April 16: Labs reviewed. Elevated potassium noted. Kayexalate given. BUN/creatinine stable. Continue per current management. April 15: Labs reviewed. Renal parameters are stable. Continue per consultants. April 14: Labs reviewed. Electrolytes acceptable. Continue to monitor renal parameters. April 13: Today's labs reviewed. Hyperkalemia resolved. Continue to monitor renal parameters. Previously DC IV fluid P.o. Kayexalate Continue per cardiology Monitor renal parameters and electrolytes Continue per pulmonary Per orders Subjective ROS Limited/Unobtainable: Yes Objective Objective Last 24 Hour Vital Signs Date Time Temp Pulse Resp B/P (MAP) Pulse Ox O2 Delivery O2 Flow Rate FiO2 04/16/20 09:00 Non-Rebreather 15.0 04/16/20 08:40 78 120/77 04/16/20 08:00 96.3 78 22 120/77 (91) 99 04/16/20 08:00 75 04/16/20 04:00 78 04/16/20 04:00 97.7 73 28 121/78 (92) 97 04/16/20 00:00 97.9 74 24 121/77 (92) 96 04/16/20 00:00 76 04/15/20 21:50 85 119/85 04/15/20 21:00 Non-Rebreather 15.0 04/15/20 20:00 82 04/15/20 20:00 98.2 85 32 119/85 (96) 96 04/15/20 16:00 97.7 70 22 119/83 (95) 100 04/15/20 16:00 79 04/15/20 12:00 97.4 77 22 105/70 (82) 97 04/15/20 12:00 79 Intake and Output 04/15/20 04/16/20 19:00 07:00 Intake Total 350 ml 350 ml Output Total 800 ml 800 ml Balance -450 ml -450 ml Intake Oral 350 ml 350 ml Output Urine Total 800 ml 800 ml # Voids 2 Current Medications Medications (Trade) Dose Ordered Sig/Arturo Route PRN Reason Start Time Stop Time Status Last Admin Dose Admin Acetaminophen (Tylenol) 650 mg Q4H PRN ORAL Temp >100.5 04/11/20 05:30 05/11/20 05:29 04/11/20 05:45 Albuterol Sulfate (Proventil MDI) 2 puff Q4H PRN INH Shortness of Breath 04/12/20 11:00 07/11/20 10:59 04/12/20 18:23 Aspirin (Ecotrin) 81 mg DAILY ORAL 04/12/20 09:00 05/27/20 08:59 04/16/20 08:39 Docusate Sodium (Colace) 100 mg THREE TIMES A DAY ORAL 04/12/20 18:00 05/12/20 17:59 04/16/20 08:39 Enoxaparin Sodium (Lovenox) 40 mg DAILY SUBQ 04/10/20 09:00 07/09/20 08:59 04/16/20 08:41 Furosemide (Lasix) 40 mg DAILY IV 04/13/20 09:00 05/13/20 08:59 04/16/20 08:40 Guaifenesin/ Dextromethorphan (Robitussin DM Syrup) 15 ml Q6H PRN ORAL For Cough 04/10/20 19:00 07/09/20 18:59 04/12/20 09:22 Methylprednisolone Sodium Succinate (Solu-MEDROL) 40 mg EVERY 12 HOURS IVP 04/14/20 11:15 07/13/20 11:14 04/16/20 08:40 Metoprolol Tartrate (Lopressor) 12.5 mg Q12HR ORAL 04/11/20 21:00 07/10/20 20:59 04/16/20 08:40 Morphine Sulfate (Morphine Sulfate) 2 mg Q4H PRN IVP For Pain 04/15/20 10:45 04/22/20 10:44 Pantoprazole (Protonix) 40 mg EVERY 12 HOURS ORAL 04/12/20 21:00 05/12/20 20:59 04/16/20 08:39 Sodium Polystyrene Sulfonate (Kayexalate) 30 gm ONCE ORAL 04/16/20 09:15 04/16/20 11:30 04/16/20 09:29 Laboratory Tests 04/16/20 04:47: White Blood Count 6.8#, Red Blood Count 5.18, Hemoglobin 11.9L, Hematocrit 42.9, Mean Corpuscular Volume 83, Mean Corpuscular Hemoglobin 23.0L, Mean Corpuscular Hemoglobin Concent 27.7L, Red Cell Distribution Width 15.4H, Platelet Count 363, Mean Platelet Volume 9.3, Neutrophils (%) (Auto) , Lymphocytes (%) (Auto) , Monocytes (%) (Auto) , Eosinophils (%) (Auto) , Basophils (%) (Auto) , Differential Total Cells Counted 100, Neutrophils % (Manual) 83H, Lymphocytes % (Manual) 10L, Monocytes % (Manual) 7, Eosinophils % (Manual) 0, Basophils % (Manual) 0, Band Neutrophils 0, Platelet Estimate Adequate, Platelet Morphology Normal, Hypochromasia 1+, Anisocytosis 1+, Sodium Level 145, Potassium Level 5.2H, Chloride Level 105, Carbon Dioxide Level 40H, Anion Gap 0L, Blood Urea Nitrogen 38H, Creatinine 1.1, Estimat Glomerular Filtration Rate 55.0, Glucose Level 135H, Calcium Level 8.9 Height (Feet): 5 Height (Inches): 4.00 Weight (Pounds): 341 General Appearance: no apparent distress EENT: other - On nonrebreather mask Cardiovascular: normal rate Respiratory/Chest: decreased breath sounds Abdomen: distended Cristhian Vick MD Apr 16, 2020 11:10
[2020-04-16 12:00] VITALS: BP 18/78
--- NOTE | 2020-04-16 12:06 | Pulmonology Progress Note ---
Subjective ROS Limited/Unobtainable: Yes Interval Events: now on NRB Constitutional: Reports: anorexia HEENT: Repors: no symptoms Respiratory: Reports: no symptoms Cardiovascular: Reports: no symptoms Gastrointestinal/Abdominal: Reports: no symptoms Allergies: Coded Allergies: No Known Allergies (Unverified , 04/09/20) All Systems: reviewed and negative except above Objective Last 24 Hour Vital Signs Date Time Temp Pulse Resp B/P (MAP) Pulse Ox O2 Delivery O2 Flow Rate FiO2 04/16/20 09:00 Non-Rebreather 15.0 04/16/20 08:40 78 120/77 04/16/20 08:00 96.3 78 22 120/77 (91) 99 04/16/20 08:00 75 04/16/20 04:00 78 04/16/20 04:00 97.7 73 28 121/78 (92) 97 04/16/20 00:00 97.9 74 24 121/77 (92) 96 04/16/20 00:00 76 04/15/20 21:50 85 119/85 04/15/20 21:00 Non-Rebreather 15.0 04/15/20 20:00 82 04/15/20 20:00 98.2 85 32 119/85 (96) 96 04/15/20 16:00 97.7 70 22 119/83 (95) 100 04/15/20 16:00 79 Intake and Output 04/15/20 04/16/20 19:00 07:00 Intake Total 350 ml 350 ml Output Total 800 ml 800 ml Balance -450 ml -450 ml Intake Oral 350 ml 350 ml Output Urine Total 800 ml 800 ml # Voids 2 General Appearance: no acute distress HEENT: atraumatic Respiratory: chest wall non-tender, inspiratory wheezing Cardiovascular: normal rate Abdomen: soft, non tender Laboratory Tests 04/16/20 04:47: White Blood Count 6.8#, Red Blood Count 5.18, Hemoglobin 11.9L, Hematocrit 42.9, Mean Corpuscular Volume 83, Mean Corpuscular Hemoglobin 23.0L, Mean Corpuscular Hemoglobin Concent 27.7L, Red Cell Distribution Width 15.4H, Platelet Count 363, Mean Platelet Volume 9.3, Neutrophils (%) (Auto) , Lymphocytes (%) (Auto) , Monocytes (%) (Auto) , Eosinophils (%) (Auto) , Basophils (%) (Auto) , Differential Total Cells Counted 100, Neutrophils % (Manual) 83H, Lymphocytes % (Manual) 10L, Monocytes % (Manual) 7, Eosinophils % (Manual) 0, Basophils % (Manual) 0, Band Neutrophils 0, Platelet Estimate Adequate, Platelet Morphology Normal, Hypochromasia 1+, Anisocytosis 1+, Sodium Level 145, Potassium Level 5.2H, Chloride Level 105, Carbon Dioxide Level 40H, Anion Gap 0L, Blood Urea Nitrogen 38H, Creatinine 1.1, Estimat Glomerular Filtration Rate 55.0, Glucose Level 135H, Calcium Level 8.9 Current Medications Medications (Trade) Dose Ordered Sig/Arturo Route PRN Reason Start Time Stop Time Status Last Admin Dose Admin Acetaminophen (Tylenol) 650 mg Q4H PRN ORAL Temp >100.5 04/11/20 05:30 05/11/20 05:29 04/11/20 05:45 Albuterol Sulfate (Proventil MDI) 2 puff Q4H PRN INH Shortness of Breath 04/12/20 11:00 07/11/20 10:59 04/12/20 18:23 Aspirin (Ecotrin) 81 mg DAILY ORAL 04/12/20 09:00 05/27/20 08:59 04/16/20 08:39 Docusate Sodium (Colace) 100 mg THREE TIMES A DAY ORAL 04/12/20 18:00 05/12/20 17:59 04/16/20 08:39 Enoxaparin Sodium (Lovenox) 40 mg DAILY SUBQ 04/10/20 09:00 07/09/20 08:59 04/16/20 08:41 Furosemide (Lasix) 40 mg DAILY IV 04/13/20 09:00 05/13/20 08:59 04/16/20 08:40 Guaifenesin/ Dextromethorphan (Robitussin DM Syrup) 15 ml Q6H PRN ORAL For Cough 04/10/20 19:00 07/09/20 18:59 04/12/20 09:22 Methylprednisolone Sodium Succinate (Solu-MEDROL) 40 mg EVERY 12 HOURS IVP 04/14/20 11:15 07/13/20 11:14 04/16/20 08:40 Metoprolol Tartrate (Lopressor) 12.5 mg Q12HR ORAL 04/11/20 21:00 07/10/20 20:59 04/16/20 08:40 Morphine Sulfate (Morphine Sulfate) 2 mg Q4H PRN IVP For Pain 04/15/20 10:45 04/22/20 10:44 Pantoprazole (Protonix) 40 mg EVERY 12 HOURS ORAL 04/12/20 21:00 05/12/20 20:59 04/16/20 08:39 Assessment/Plan Assessment/Plan 1. COVID-19 pneumonia - We will continue steroids and broad-spectrum antibiotics - on remdesivir per ID - on 15L NRB, Sat at 94%; will wean down as tolerated; failed weaning with 6L VM yesterday, apparently 10L VM attachment not available - Albuterol PRN wheezing - s/p dexamethasone, remdesivir, now on solumedrol 2. Elevated inflammatory markers -continue Lovenox for DVT prophylaxis - Venous duplex neg for DVT (04/10) - On Lovenox 3. GIANNA -IV fluids -Management per primary MD 4. Diabetes mellitus with hyperglycemia -Patient reports taking Metformin at home 5. Lactic acidemia - per primary MD 6. Hypocalcemia - per primary MD 7. Transaminitis, likely secondary to #1 - monitor AST, ALT 8. Elevated troponin -Serial troponin 9. New onset fever; resolved - Bngl=224.9 - no leukocytosis - monitor temp 10. Severe TR and pulmonary HTN with PAP 70s - Recommend outpatient evaluation The care for this patient was discussed with my supervising physician. Time spent for this case was approximately 31 minutes. Vitaly Mcginnis Apr 16, 2020 12:06
[2020-04-16 16:00] VITALS: BP 120/78
--- NOTE | 2020-04-16 17:29 | NUR ---
INSURANCE CLINCALS AND REVIEW FAXED TO [facility] T: [phone] F:[phone]
--- NOTE | 2020-04-16 17:58 | NUR ---
NURSE NOTES: Attempted to wean patient to venturi mask at 14lpm Fi02 55%, patient desat lowest 83% and complained of shortness of breath, unable to tolerate weaning so far. RT resumed non-rebreather at 15lpm with relief of symptoms and improvement of sats 94-97%.
--- NOTE | 2020-04-16 18:58 | NUR ---
NURSE HAND-OFF REPORT: Important Events on Shift: Unable to tolerate weaning, still on O2 at 15lpm; given Kayexlate 30gm PO x1 for K: 5.4 Patient Status: Stable Diet: Regular Pending Orders: N Pending Results/Labs: repeat labs in AM Pending MD notification: Latest Vital Signs: Temperature 96.8 , Pulse 91 , B/P 120 /78 , Respiratory Rate 18 , O2 SAT 94 , Nasal Cannula, O2 Flow Rate 15.0 . Vital Sign Comment: EKG Rhythm: Sinus Rhythm Rhythm change?: N MD Notified?: N - MD Response: Latest Velasquez Fall Score: 35 Fall Risk: Medium Risk Safety Measures: Call light Within Reach, Bed Alarm Zone 1, Side Rails Side Rails x3, Bed position Low and Locked. Fall Precautions: Patient Fall Education Report given to Gaetano RAYMOND.
--- NOTE | 2020-04-16 19:22 | NUR ---
NURSE NOTES: Pt. received from SEGUNDO Perea. Pt. AAOx4, breathing even and unlabored on 15L NRB, no indications of respiratory distress, no complaints of pain. IV noted left forearm 24g saline locked. Bed low and locked, side rails x3 up, bed alarm active, and call light in reach.
[2020-04-16 20:00] VITALS: BP 125/76
[2020-04-17] VITALS: BP 110/69
[2020-04-17 04:00] VITALS: BP 109/71
[2020-04-17 06:26] LABS: HEMATOCRIT 42.3 % (37.0-47.0); HEMOGLOBIN 12.2 G/DL (12.0-16.0); MEAN CORPUSCULAR VOLUME 83 FL (80-99); PLATELET COUNT 369 K/UL (150-450); RED BLOOD COUNT 5.11 M/UL (4.20-5.40); RED CELL DISTRIBUTION WIDTH 15.6 % (11.6-14.8); WHITE BLOOD COUNT 6.9 K/UL (4.8-10.8)
[2020-04-17 06:48] LABS: PHOSPHORUS 3.5 MG/DL (2.5-4.9)
--- NOTE | 2020-04-17 06:51 | NUR ---
NURSE HAND-OFF REPORT: Important Events on Shift:[pt. with moderate BM overnight, stable on 15L NRB] Patient Status: asleep Diet: Regular Pending Orders: na Pending Results/Labs: BNP BMP CRP CBC CMP MG PH Pending MD notification: na Latest Vital Signs: Temperature 97.5 , Pulse 73 , B/P 109 /71 , Respiratory Rate 26 , O2 SAT 94 , Nasal Cannula, O2 Flow Rate 15.0 . Vital Sign Comment: stable EKG Rhythm: Sinus Rhythm Rhythm change?: N MD Notified?: N - MD Response: Latest Velasquez Fall Score: 50 Fall Risk: High Risk Safety Measures: Call light Within Reach, Bed Alarm Zone 1, Side Rails Side Rails x3, Bed position Low and Locked. Fall Precautions: Patient Fall Education Report given to . Addendum: 04/17/20 at 0718 by Gaetano Nathan RN Report given to SEGUNDO Gaytan.
[2020-04-17 07:28] LABS: ALANINE AMINOTRANSFERASE 86 U/L (12-78); ALBUMIN 2.5 G/DL (3.4-5.0); ALBUMIN/GLOBULIN RATIO 0.5 (1.0-2.7); ALKALINE PHOSPHATASE 99 U/L (46-116); ANION GAP 6 mmol/L (5-15); ASPARTATE AMINO TRANSFERASE 40 U/L (15-37); BILIRUBIN,TOTAL 0.5 MG/DL (0.2-1.0); BLOOD UREA NITROGEN 41 mg/dL (7-18); CARBON DIOXIDE 34 MMOL/L (21-32); CHLORIDE 102 MMOL/L (98-107); CREATININE 0.9 MG/DL (0.55-1.30); POTASSIUM 5.9 MMOL/L (3.5-5.1); SODIUM 142 MMOL/L (136-145)
--- NOTE | 2020-04-17 07:42 | NUR ---
NURSE NOTES: Report received from SEGUNDO Salter. Pt received awake, alert and oriented x 4, no SOB, bed in lowest position with break engaged and alarm on, denies any pain or discomfort at this time, on contact and droplet isolation for COVID 19, monitoring tech and IV line in place, on a non rebreather mask at 15 L, will continue to monitor for change and proceed with plan of care, call light within reach
[2020-04-17 08:00] VITALS: BP 121/79
[2020-04-17] MEDS: Solu-MEDROL 40mg Inj IVP SCH ×2 (08:22→20:28)
[2020-04-17] MEDS: Aspirin EC 81mg tab ORAL SCH (08:22)
[2020-04-17] MEDS: Metoprolol Tartrate 12.5mg TAB ORAL SCH ×2 (08:22→20:40)
[2020-04-17] MEDS: Docusate 100mg cap ORAL SCH ×3 (08:22→17:02)
[2020-04-17] MEDS: Enoxaparin 40mg Inj SUBQ SCH (08:23)
--- NOTE | 2020-04-17 09:15 | General Progress Note ---
Subjective Constitutional: Reports: weakness Allergies: Coded Allergies: No Known Allergies (Unverified , 04/09/20) All Systems: reviewed and negative except above Subjective o2 mask sleepy Objective Last 24 Hour Vital Signs Date Time Temp Pulse Resp B/P (MAP) Pulse Ox O2 Delivery O2 Flow Rate FiO2 04/17/20 08:22 76 121/79 04/17/20 08:00 97.7 76 24 121/79 (93) 95 04/17/20 04:00 73 04/17/20 04:00 97.5 73 26 109/71 (84) 94 04/17/20 00:00 97.3 82 26 110/69 (83) 94 04/17/20 00:00 82 04/16/20 21:00 Non-Rebreather 15.0 04/16/20 20:54 97 125/76 04/16/20 20:00 97.7 95 28 125/76 (92) 97 04/16/20 20:00 95 04/16/20 17:56 Non-Rebreather 15.0 04/16/20 16:00 91 04/16/20 16:00 96.8 90 18 120/78 (92) 94 04/16/20 15:44 Venturi Mask 14.0 04/16/20 12:00 96.7 92 18 18/78 (58) 99 04/16/20 12:00 85 Intake and Output 04/16/20 04/17/20 19:00 07:00 Intake Total 810 ml Output Total 2100 ml 550 ml Balance -1290 ml -550 ml Intake Oral 810 ml Output Urine Total 2100 ml 550 ml # Voids 1 1 # Bowel Movements 1 Laboratory Tests 04/17/20 04:00: White Blood Count 6.9, Red Blood Count 5.11, Hemoglobin 12.2, Hematocrit 42.3, Mean Corpuscular Volume 83, Mean Corpuscular Hemoglobin 23.8L, Mean Corpuscular Hemoglobin Concent 28.7L, Red Cell Distribution Width 15.6H, Platelet Count 369, Mean Platelet Volume 8.5, Neutrophils (%) (Auto) , Lymphocytes (%) (Auto) , Monocytes (%) (Auto) , Eosinophils (%) (Auto) , Basophils (%) (Auto) , Differential Total Cells Counted 100, Neutrophils % (Manual) 88H, Lymphocytes % (Manual) 8L, Monocytes % (Manual) 4, Eosinophils % (Manual) 0, Basophils % (Manual) 0, Band Neutrophils 0, Platelet Estimate Adequate, Platelet Morphology Normal, Red Blood Cell Morphology Normal, Sodium Level 142, Potassium Level 5.9H , Chloride Level 102, Carbon Dioxide Level 34H, Anion Gap 6, Blood Urea Nitrogen 41H, Creatinine 0.9, Estimat Glomerular Filtration Rate > 60, Glucose Level 108H , Calcium Level 9.0, Phosphorus Level 3.5, Magnesium Level 2.1, Total Bilirubin 0.5, Aspartate Amino Transf (AST/SGOT) 40H, Alanine Aminotransferase (ALT/SGPT) 86H, Alkaline Phosphatase 99, C-Reactive Protein, Quantitative 1.5H, Pro-B-Type Natriuretic Peptide 5610H, Total Protein 7.3, Albumin 2.5L, Globulin 4.8, Albumin/Globulin Ratio 0.5L Height (Feet): 5 Height (Inches): 4.00 Weight (Pounds): 341 General Appearance: lethargic EENT: normal ENT inspection Neck: normal alignment Cardiovascular: normal peripheral pulses, normal rate, regular rhythm Respiratory/Chest: chest wall non-tender, lungs clear, normal breath sounds Abdomen: normal bowel sounds, non tender, soft Extremities: normal inspection Edema: no edema noted Arm (L), no edema noted Arm (R), no edema noted Leg (L), no edema noted Leg (R), no edema noted Pedal (L), no edema noted Pedal (R), no edema noted Generalized Neurologic: motor weakness Skin: normal pigmentation, warm/dry Assessment/Plan Problem List: (1) HTN (hypertension) ICD Codes: I10 - Essential (primary) hypertension SNOMED: 46424205 (2) Diabetes ICD Codes: E11.9 - Type 2 diabetes mellitus without complications SNOMED: 68172439 (3) Obese ICD Codes: E66.9 - Obesity, unspecified SNOMED: 105480526, 381410134 (4) CHF (congestive heart failure) ICD Codes: I50.9 - Heart failure, unspecified SNOMED: 93988902 (5) Dyspnea ICD Codes: R06.00 - Dyspnea, unspecified SNOMED: 125566129 (6) Pneumonia due to COVID-19 virus ICD Codes: U07.1 - COVID-19; J12.82 - Pneumonia due to coronavirus disease 2019 SNOMED: 978710516743347535 (7) Respiratory distress ICD Codes: R06.03 - Acute respiratory distress SNOMED: 263900861 (8) Hypoxia ICD Codes: R09.02 - Hypoxemia SNOMED: 345014454 (9) COVID-19 ICD Codes: U07.1 - COVID-19 SNOMED: 222125439 Status: unchanged Assessment/Plan: o2 pum tx abx bp bs control cardio f/u cbc bmp am Dawood Mason Apr 17, 2020 09:14
--- NOTE | 2020-04-17 09:23 | NUR ---
NURSE NOTES: Reported K level of 5.[address] Mason. Will cont to monitor.
--- NOTE | 2020-04-17 10:39 | Cardiac Electrophysiology PN ---
Assessment/Plan Assessment/Plan 1. Elevated troponin could be due to COVID myocarditis. The EKG does not show any acute ST-T wave abnormality. EF 65% . Continue aspirin and Lopressor. 2. Congestive heart failure with BNP of almost 10,000. EF 65%. On Lasix 40 iv daily 3. COVID pneumonia and respiratory failure, on 100% nonrebreather facemask, steroid, Remdesevir and broad-spectrum antibiotic. Fu by Dr. Carrero. 4. Severe TR and pulmonary HTN with PAP 70s. ? COPD. FU Dr Carrero 5. Diabetes. 6. Lactic acidemia. 7. Fever. DONTA RN Subjective Subjective Alert in NAD on 15 L NRB FM in covid isolation. In SR off restraints Objective Last 24 Hour Vital Signs Date Time Temp Pulse Resp B/P (MAP) Pulse Ox O2 Delivery O2 Flow Rate FiO2 04/17/20 09:00 Non-Rebreather 15.0 04/17/20 08:22 76 121/79 04/17/20 08:00 97.7 76 24 121/79 (93) 95 04/17/20 08:00 77 04/17/20 04:00 73 04/17/20 04:00 97.5 73 26 109/71 (84) 94 04/17/20 00:00 97.3 82 26 110/69 (83) 94 04/17/20 00:00 82 04/16/20 21:00 Non-Rebreather 15.0 04/16/20 20:54 97 125/76 04/16/20 20:00 97.7 95 28 125/76 (92) 97 04/16/20 20:00 95 04/16/20 17:56 Non-Rebreather 15.0 04/16/20 16:00 91 04/16/20 16:00 96.8 90 18 120/78 (92) 94 04/16/20 15:44 Venturi Mask 14.0 04/16/20 12:00 96.7 92 18 18/78 (58) 99 04/16/20 12:00 85 Intake and Output 04/16/20 04/17/20 19:00 07:00 Intake Total 810 ml Output Total 2100 ml 550 ml Balance -1290 ml -550 ml Intake Oral 810 ml Output Urine Total 2100 ml 550 ml # Voids 1 1 # Bowel Movements 1 Laboratory Tests Test 04/17/20 04:00 White Blood Count 6.9 K/UL (4.8-10.8) Red Blood Count 5.11 M/UL (4.20-5.40) Hemoglobin 12.2 G/DL (12.0-16.0) Hematocrit 42.3 % (37.0-47.0) Mean Corpuscular Volume 83 FL (80-99) Mean Corpuscular Hemoglobin 23.8 PG (27.0-31.0) L Mean Corpuscular Hemoglobin Concent 28.7 G/DL (32.0-36.0) L Red Cell Distribution Width 15.6 % (11.6-14.8) H Platelet Count 369 K/UL (150-450) Mean Platelet Volume 8.5 FL (6.5-10.1) Neutrophils (%) (Auto) % (45.0-75.0) Lymphocytes (%) (Auto) % (20.0-45.0) Monocytes (%) (Auto) % (1.0-10.0) Eosinophils (%) (Auto) % (0.0-3.0) Basophils (%) (Auto) % (0.0-2.0) Differential Total Cells Counted 100 Neutrophils % (Manual) 88 % (45-75) H Lymphocytes % (Manual) 8 % (20-45) L Monocytes % (Manual) 4 % (1-10) Eosinophils % (Manual) 0 % (0-3) Basophils % (Manual) 0 % (0-2) Band Neutrophils 0 % (0-8) Platelet Estimate Adequate Platelet Morphology Normal Red Blood Cell Morphology Normal Sodium Level 142 MMOL/L (136-145) Potassium Level 5.9 MMOL/L (3.5-5.1) H Chloride Level 102 MMOL/L (98-107) Carbon Dioxide Level 34 MMOL/L (21-32) H Anion Gap 6 mmol/L (5-15) Blood Urea Nitrogen 41 mg/dL (7-18) H Creatinine 0.9 MG/DL (0.55-1.30) Estimat Glomerular Filtration Rate > 60 mL/min (>60) Glucose Level 108 MG/DL (74-106) H Calcium Level 9.0 MG/DL (8.5-10.1) Phosphorus Level 3.5 MG/DL (2.5-4.9) Magnesium Level 2.1 MG/DL (1.8-2.4) Total Bilirubin 0.5 MG/DL (0.2-1.0) Aspartate Amino Transf (AST/SGOT) 40 U/L (15-37) H Alanine Aminotransferase (ALT/SGPT) 86 U/L (12-78) H Alkaline Phosphatase 99 U/L (46-116) C-Reactive Protein, Quantitative 1.5 mg/dL (0.00-0.90) H Pro-B-Type Natriuretic Peptide 5610 pg/mL (0-125) H Total Protein 7.3 G/DL (6.4-8.2) Albumin 2.5 G/DL (3.4-5.0) L Globulin 4.8 g/dL Albumin/Globulin Ratio 0.5 (1.0-2.7) L Objective HEAD AND NECK: No JVD. LUNGS: Decreased breath sounds. CARDIOVASCULAR: Tachycardic S1 and S2 with no gallop. ABDOMEN: Obese. EXTREMITIES: 1+ pitting edema. Dave Tijerina MD Apr 17, 2020 10:39
--- NOTE | 2020-04-17 10:53 | Infectious Diseases Prog Note ---
Assessment/Plan Assessment/Plan A 1. COVID19 pneumonia 2. diabetes mellitus 3. obesity 4. Hypoxemia P 1. Finished remdesivir course 2. continue Solumedrol 3. continue isolation Subjective ROS Limited/Unobtainable: No Respiratory: Reports: shortness of breath, dry cough Gastrointestinal/Abdominal: Reports: no symptoms Genitourinary: Reports: no symptoms Musculoskeletal: Reports: no symptoms Allergies: Coded Allergies: No Known Allergies (Unverified , 04/09/20) Objective Last 24 Hour Vital Signs Date Time Temp Pulse Resp B/P (MAP) Pulse Ox O2 Delivery O2 Flow Rate FiO2 04/17/20 09:00 Non-Rebreather 15.0 04/17/20 08:22 76 121/79 04/17/20 08:00 97.7 76 24 121/79 (93) 95 04/17/20 08:00 77 04/17/20 04:00 73 04/17/20 04:00 97.5 73 26 109/71 (84) 94 04/17/20 00:00 97.3 82 26 110/69 (83) 94 04/17/20 00:00 82 04/16/20 21:00 Non-Rebreather 15.0 04/16/20 20:54 97 125/76 04/16/20 20:00 97.7 95 28 125/76 (92) 97 04/16/20 20:00 95 04/16/20 17:56 Non-Rebreather 15.0 04/16/20 16:00 91 04/16/20 16:00 96.8 90 18 120/78 (92) 94 04/16/20 15:44 Venturi Mask 14.0 04/16/20 12:00 96.7 92 18 18/78 (58) 99 04/16/20 12:00 85 Height (Feet): 5 Height (Inches): 4.00 Weight (Pounds): 341 General Appearance: no acute distress HEENT: mucous membranes moist Respiratory/Chest: other - O2 by NRB mask 15 L Cardiovascular: normal rate Abdomen: soft, non tender Skin: other - stasis dermatitis of legs Neurologic/Psychiatric: alert, responsive Laboratory Tests Test 04/17/20 04:00 White Blood Count 6.9 K/UL (4.8-10.8) Red Blood Count 5.11 M/UL (4.20-5.40) Hemoglobin 12.2 G/DL (12.0-16.0) Hematocrit 42.3 % (37.0-47.0) Mean Corpuscular Volume 83 FL (80-99) Mean Corpuscular Hemoglobin 23.8 PG (27.0-31.0) L Mean Corpuscular Hemoglobin Concent 28.7 G/DL (32.0-36.0) L Red Cell Distribution Width 15.6 % (11.6-14.8) H Platelet Count 369 K/UL (150-450) Mean Platelet Volume 8.5 FL (6.5-10.1) Neutrophils (%) (Auto) % (45.0-75.0) Lymphocytes (%) (Auto) % (20.0-45.0) Monocytes (%) (Auto) % (1.0-10.0) Eosinophils (%) (Auto) % (0.0-3.0) Basophils (%) (Auto) % (0.0-2.0) Differential Total Cells Counted 100 Neutrophils % (Manual) 88 % (45-75) H Lymphocytes % (Manual) 8 % (20-45) L Monocytes % (Manual) 4 % (1-10) Eosinophils % (Manual) 0 % (0-3) Basophils % (Manual) 0 % (0-2) Band Neutrophils 0 % (0-8) Platelet Estimate Adequate Platelet Morphology Normal Red Blood Cell Morphology Normal Sodium Level 142 MMOL/L (136-145) Potassium Level 5.9 MMOL/L (3.5-5.1) H Chloride Level 102 MMOL/L (98-107) Carbon Dioxide Level 34 MMOL/L (21-32) H Anion Gap 6 mmol/L (5-15) Blood Urea Nitrogen 41 mg/dL (7-18) H Creatinine 0.9 MG/DL (0.55-1.30) Estimat Glomerular Filtration Rate > 60 mL/min (>60) Glucose Level 108 MG/DL (74-106) H Calcium Level 9.0 MG/DL (8.5-10.1) Phosphorus Level 3.5 MG/DL (2.5-4.9) Magnesium Level 2.1 MG/DL (1.8-2.4) Total Bilirubin 0.5 MG/DL (0.2-1.0) Aspartate Amino Transf (AST/SGOT) 40 U/L (15-37) H Alanine Aminotransferase (ALT/SGPT) 86 U/L (12-78) H Alkaline Phosphatase 99 U/L (46-116) C-Reactive Protein, Quantitative 1.5 mg/dL (0.00-0.90) H Pro-B-Type Natriuretic Peptide 5610 pg/mL (0-125) H Total Protein 7.3 G/DL (6.4-8.2) Albumin 2.5 G/DL (3.4-5.0) L Globulin 4.8 g/dL Albumin/Globulin Ratio 0.5 (1.0-2.7) L Current Medications Medications (Trade) Dose Ordered Sig/Arturo Route PRN Reason Start Time Stop Time Status Last Admin Dose Admin Acetaminophen (Tylenol) 650 mg Q4H PRN ORAL Temp >100.5 04/11/20 05:30 05/11/20 05:29 04/11/20 05:45 Albuterol Sulfate (Proventil MDI) 2 puff Q4H PRN INH Shortness of Breath 04/12/20 11:00 07/11/20 10:59 04/12/20 18:23 Aspirin (Ecotrin) 81 mg DAILY ORAL 04/12/20 09:00 05/27/20 08:59 04/17/20 08:22 Docusate Sodium (Colace) 100 mg THREE TIMES A DAY ORAL 04/12/20 18:00 05/12/20 17:59 04/17/20 08:22 Enoxaparin Sodium (Lovenox) 40 mg DAILY SUBQ 04/10/20 09:00 07/09/20 08:59 04/17/20 08:23 Furosemide (Lasix) 40 mg DAILY IV 04/13/20 09:00 05/13/20 08:59 04/17/20 08:22 Guaifenesin/ Dextromethorphan (Robitussin DM Syrup) 15 ml Q6H PRN ORAL For Cough 04/10/20 19:00 07/09/20 18:59 04/12/20 09:22 Methylprednisolone Sodium Succinate (Solu-MEDROL) 40 mg EVERY 12 HOURS IVP 04/14/20 11:15 07/13/20 11:14 04/17/20 08:22 Metoprolol Tartrate (Lopressor) 12.5 mg Q12HR ORAL 04/11/20 21:00 07/10/20 20:59 04/17/20 08:22 Morphine Sulfate (Morphine Sulfate) 2 mg Q4H PRN IVP For Pain 04/15/20 10:45 04/22/20 10:44 Pantoprazole (Protonix) 40 mg EVERY 12 HOURS ORAL 04/12/20 21:00 05/12/20 20:59 04/17/20 08:22 Usman Gant MD Apr 17, 2020 10:53
[2020-04-17] MEDS ORDERED: Sodium Polystyrene Sulfonate 15gm Powder ORAL SCH (11:00)
--- NOTE | 2020-04-17 11:14 | Pulmonology Progress Note ---
Subjective ROS Limited/Unobtainable: No Interval Events: now on NRB Constitutional: Reports: anorexia HEENT: Repors: no symptoms Respiratory: Reports: no symptoms Cardiovascular: Reports: no symptoms Gastrointestinal/Abdominal: Reports: no symptoms Musculoskeletal: Reports: no symptoms Allergies: Coded Allergies: No Known Allergies (Unverified , 04/09/20) All Systems: reviewed and negative except above Objective Last 24 Hour Vital Signs Date Time Temp Pulse Resp B/P (MAP) Pulse Ox O2 Delivery O2 Flow Rate FiO2 04/17/20 09:00 Non-Rebreather 15.0 04/17/20 08:22 76 121/79 04/17/20 08:00 97.7 76 24 121/79 (93) 95 04/17/20 08:00 77 04/17/20 04:00 73 04/17/20 04:00 97.5 73 26 109/71 (84) 94 04/17/20 00:00 97.3 82 26 110/69 (83) 94 04/17/20 00:00 82 04/16/20 21:00 Non-Rebreather 15.0 04/16/20 20:54 97 125/76 04/16/20 20:00 97.7 95 28 125/76 (92) 97 04/16/20 20:00 95 04/16/20 17:56 Non-Rebreather 15.0 04/16/20 16:00 91 04/16/20 16:00 96.8 90 18 120/78 (92) 94 04/16/20 15:44 Venturi Mask 14.0 04/16/20 12:00 96.7 92 18 18/78 (58) 99 04/16/20 12:00 85 Intake and Output 04/16/20 04/17/20 18:59 06:59 Intake Total 810 ml Output Total 2100 ml 550 ml Balance -1290 ml -550 ml Intake Oral 810 ml Output Urine Total 2100 ml 550 ml # Voids 1 1 # Bowel Movements 1 General Appearance: no acute distress HEENT: atraumatic Respiratory: chest wall non-tender, inspiratory wheezing Cardiovascular: normal rate Abdomen: soft, non tender Laboratory Tests 04/17/20 04:00: White Blood Count 6.9, Red Blood Count 5.11, Hemoglobin 12.2, Hematocrit 42.3, Mean Corpuscular Volume 83, Mean Corpuscular Hemoglobin 23.8L, Mean Corpuscular Hemoglobin Concent 28.7L, Red Cell Distribution Width 15.6H, Platelet Count 369, Mean Platelet Volume 8.5, Neutrophils (%) (Auto) , Lymphocytes (%) (Auto) , Monocytes (%) (Auto) , Eosinophils (%) (Auto) , Basophils (%) (Auto) , Differential Total Cells Counted 100, Neutrophils % (Manual) 88H, Lymphocytes % (Manual) 8L, Monocytes % (Manual) 4, Eosinophils % (Manual) 0, Basophils % (Manual) 0, Band Neutrophils 0, Platelet Estimate Adequate, Platelet Morphology Normal, Red Blood Cell Morphology Normal, Sodium Level 142, Potassium Level 5.9H , Chloride Level 102, Carbon Dioxide Level 34H, Anion Gap 6, Blood Urea Nitrogen 41H, Creatinine 0.9, Estimat Glomerular Filtration Rate > 60, Glucose Level 108H , Calcium Level 9.0, Phosphorus Level 3.5, Magnesium Level 2.1, Total Bilirubin 0.5, Aspartate Amino Transf (AST/SGOT) 40H, Alanine Aminotransferase (ALT/SGPT) 86H, Alkaline Phosphatase 99, C-Reactive Protein, Quantitative 1.5H, Pro-B-Type Natriuretic Peptide 5610H, Total Protein 7.3, Albumin 2.5L, Globulin 4.8, Albumin/Globulin Ratio 0.5L Current Medications Medications (Trade) Dose Ordered Sig/Arturo Route PRN Reason Start Time Stop Time Status Last Admin Dose Admin Acetaminophen (Tylenol) 650 mg Q4H PRN ORAL Temp >100.5 04/11/20 05:30 05/11/20 05:29 04/11/20 05:45 Albuterol Sulfate (Proventil MDI) 2 puff Q4H PRN INH Shortness of Breath 04/12/20 11:00 07/11/20 10:59 04/12/20 18:23 Aspirin (Ecotrin) 81 mg DAILY ORAL 04/12/20 09:00 05/27/20 08:59 04/17/20 08:22 Docusate Sodium (Colace) 100 mg THREE TIMES A DAY ORAL 04/12/20 18:00 05/12/20 17:59 04/17/20 08:22 Enoxaparin Sodium (Lovenox) 40 mg DAILY SUBQ 04/10/20 09:00 07/09/20 08:59 04/17/20 08:23 Furosemide (Lasix) 40 mg DAILY IV 04/13/20 09:00 05/13/20 08:59 04/17/20 08:22 Guaifenesin/ Dextromethorphan (Robitussin DM Syrup) 15 ml Q6H PRN ORAL For Cough 04/10/20 19:00 07/09/20 18:59 04/12/20 09:22 Methylprednisolone Sodium Succinate (Solu-MEDROL) 40 mg EVERY 12 HOURS IVP 04/14/20 11:15 07/13/20 11:14 04/17/20 08:22 Metoprolol Tartrate (Lopressor) 12.5 mg Q12HR ORAL 04/11/20 21:00 07/10/20 20:59 04/17/20 08:22 Morphine Sulfate (Morphine Sulfate) 2 mg Q4H PRN IVP For Pain 04/15/20 10:45 04/22/20 10:44 Pantoprazole (Protonix) 40 mg EVERY 12 HOURS ORAL 04/12/20 21:00 05/12/20 20:59 04/17/20 08:22 Sodium Polystyrene Sulfonate (Kayexalate) 45 gm ONCE ORAL 04/17/20 11:00 04/17/20 14:00 Assessment/Plan Assessment/Plan 1. COVID-19 pneumonia - s/p remdesivir, dexamethasone and broad spectrum abx - on 15L NRB, Sat at 94%; will wean down as tolerated; has been failing weaning with Venturi mask - Albuterol PRN wheezing - now on solumedrol - check repeat CXR and D-Dimer, increase Lovenox if D-dimer more elevated 2. Elevated inflammatory markers -continue Lovenox for DVT prophylaxis - Venous duplex neg for DVT (04/10) 3. GIANNA -IV fluids -Management per primary MD 4. Diabetes mellitus with hyperglycemia -Patient reports taking Metformin at home 5. Lactic acidemia - per primary MD 6. Hypocalcemia - per primary MD 7. Transaminitis, likely secondary to #1 - monitor AST, ALT 8. Elevated troponin -Serial troponin 9. New onset fever; resolved - Euaq=544.9 - no leukocytosis - monitor temp 10. Severe TR and pulmonary HTN with PAP 70s - Recommend outpatient evaluation The care for this patient was discussed with my supervising physician. Time spent for this case was approximately 31 minutes. Vitaly Mcginnis Apr 17, 2020 11:13
[2020-04-17 12:00] VITALS: BP 115/72
--- NOTE | 2020-04-17 13:38 | Nephrology Progress Note ---
Assessment/Plan Problem List: (1) Pneumonia due to COVID-19 virus (2) Obese (3) CHF (congestive heart failure) (4) Hypoxia (5) GIANNA (acute kidney injury) (6) Hyperkalemia Assessment Hyperkalemia Azotemia Diastolic dysfunction Covid pneumonia Pulmonary hypertension Severe TR Diabetes mellitus Morbid obesity Proteinuria Plan April 17: Labs reviewed. Serum potassium remains elevated. Kayexalate p.o. given again today. Continue to monitor renal parameters and electrolyte. Continue per consultants. April 16: Labs reviewed. Elevated potassium noted. Kayexalate given. BUN/creatinine stable. Continue per current management. April 15: Labs reviewed. Renal parameters are stable. Continue per consultants. April 14: Labs reviewed. Electrolytes acceptable. Continue to monitor renal parameters. April 13: Today's labs reviewed. Hyperkalemia resolved. Continue to monitor renal parameters. Previously DC IV fluid P.o. Kayexalate Continue per cardiology Monitor renal parameters and electrolytes Continue per pulmonary Per orders Subjective ROS Limited/Unobtainable: Yes Objective Objective Last 24 Hour Vital Signs Date Time Temp Pulse Resp B/P (MAP) Pulse Ox O2 Delivery O2 Flow Rate FiO2 04/17/20 12:00 92 04/17/20 12:00 97.9 86 26 115/72 (86) 94 04/17/20 09:00 Non-Rebreather 15.0 04/17/20 08:22 76 121/79 04/17/20 08:00 97.7 76 24 121/79 (93) 95 04/17/20 08:00 77 04/17/20 04:00 73 04/17/20 04:00 97.5 73 26 109/71 (84) 94 04/17/20 00:00 97.3 82 26 110/69 (83) 94 04/17/20 00:00 82 04/16/20 21:00 Non-Rebreather 15.0 04/16/20 20:54 97 125/76 04/16/20 20:00 97.7 95 28 125/76 (92) 97 04/16/20 20:00 95 04/16/20 17:56 Non-Rebreather 15.0 04/16/20 16:00 91 04/16/20 16:00 96.8 90 18 120/78 (92) 94 04/16/20 15:44 Venturi Mask 14.0 Intake and Output 04/16/20 04/17/20 19:00 07:00 Intake Total 810 ml Output Total 2100 ml 550 ml Balance -1290 ml -550 ml Intake Oral 810 ml Output Urine Total 2100 ml 550 ml # Voids 1 1 # Bowel Movements 1 Current Medications Medications (Trade) Dose Ordered Sig/Arturo Route PRN Reason Start Time Stop Time Status Last Admin Dose Admin Acetaminophen (Tylenol) 650 mg Q4H PRN ORAL Temp >100.5 04/11/20 05:30 05/11/20 05:29 04/11/20 05:45 Albuterol Sulfate (Proventil MDI) 2 puff Q4H PRN INH Shortness of Breath 04/12/20 11:00 07/11/20 10:59 04/12/20 18:23 Aspirin (Ecotrin) 81 mg DAILY ORAL 04/12/20 09:00 05/27/20 08:59 04/17/20 08:22 Docusate Sodium (Colace) 100 mg THREE TIMES A DAY ORAL 04/12/20 18:00 05/12/20 17:59 04/17/20 08:22 Enoxaparin Sodium (Lovenox) 40 mg DAILY SUBQ 04/10/20 09:00 07/09/20 08:59 04/17/20 08:23 Furosemide (Lasix) 40 mg DAILY IV 04/13/20 09:00 05/13/20 08:59 04/17/20 08:22 Guaifenesin/ Dextromethorphan (Robitussin DM Syrup) 15 ml Q6H PRN ORAL For Cough 04/10/20 19:00 07/09/20 18:59 04/12/20 09:22 Methylprednisolone Sodium Succinate (Solu-MEDROL) 40 mg EVERY 12 HOURS IVP 04/14/20 11:15 07/13/20 11:14 04/17/20 08:22 Metoprolol Tartrate (Lopressor) 12.5 mg Q12HR ORAL 04/11/20 21:00 07/10/20 20:59 04/17/20 08:22 Morphine Sulfate (Morphine Sulfate) 2 mg Q4H PRN IVP For Pain 04/15/20 10:45 04/22/20 10:44 Pantoprazole (Protonix) 40 mg EVERY 12 HOURS ORAL 04/12/20 21:00 05/12/20 20:59 04/17/20 08:22 Sodium Polystyrene Sulfonate (Kayexalate) 45 gm ONCE ORAL 04/17/20 11:00 04/17/20 14:00 04/17/20 11:30 Laboratory Tests 04/17/20 04:00: White Blood Count 6.9, Red Blood Count 5.11, Hemoglobin 12.2, Hematocrit 42.3, Mean Corpuscular Volume 83, Mean Corpuscular Hemoglobin 23.8L, Mean Corpuscular Hemoglobin Concent 28.7L, Red Cell Distribution Width 15.6H, Platelet Count 369, Mean Platelet Volume 8.5, Neutrophils (%) (Auto) , Lymphocytes (%) (Auto) , Monocytes (%) (Auto) , Eosinophils (%) (Auto) , Basophils (%) (Auto) , Differential Total Cells Counted 100, Neutrophils % (Manual) 88H, Lymphocytes % (Manual) 8L, Monocytes % (Manual) 4, Eosinophils % (Manual) 0, Basophils % (Manual) 0, Band Neutrophils 0, Platelet Estimate Adequate, Platelet Morphology Normal, Red Blood Cell Morphology Normal, Sodium Level 142, Potassium Level 5.9H , Chloride Level 102, Carbon Dioxide Level 34H, Anion Gap 6, Blood Urea Nitrogen 41H, Creatinine 0.9, Estimat Glomerular Filtration Rate > 60, Glucose Level 108H , Calcium Level 9.0, Phosphorus Level 3.5, Magnesium Level 2.1, Total Bilirubin 0.5, Aspartate Amino Transf (AST/SGOT) 40H, Alanine Aminotransferase (ALT/SGPT) 86H, Alkaline Phosphatase 99, C-Reactive Protein, Quantitative 1.5H, Pro-B-Type Natriuretic Peptide 5610H, Total Protein 7.3, Albumin 2.5L, Globulin 4.8, Albumin/Globulin Ratio 0.5L Height (Feet): 5 Height (Inches): 4.00 Weight (Pounds): 341 General Appearance: mild distress EENT: other - On nonrebreather mask Cardiovascular: normal rate Respiratory/Chest: decreased breath sounds Abdomen: distended Cristhian Vick MD Apr 17, 2020 13:38
--- NOTE | 2020-04-17 13:43 | Diagnostic Imaging Report ---
Procedure: XRAY Chest 1v Reason for study: Shortness of breath. Comparison films: 04/09/2020. FINDINGS: A single one view chest is obtained. Vascularity is normal. Bilateral diffuse infiltrates not significantly changed. Cardiac and mediastinal silhouette are within normal limits. CP angles are sharp. The bony thorax appear unremarkable. IMPRESSION: NO SIGNIFICANT CHANGE COMPARED TO PREVIOUS EXAM.
--- NOTE | 2020-04-17 14:43 | NUR ---
RADIOLOGY DEPT., CHEST X-RAY DONE.-P.DYE
--- NOTE | 2020-04-17 15:21 | NUR ---
CASE MANAGEMENT:REVIEW 04/17/20 SI: COVID PNA. GIANNA. ELEVATED TROPONIN 97.7 73 28 121/78 94% ON 15L NRB K+5.2 BUN+38 IS: IV LASIX QD IV SOLUMEDROL 40MG Q12 ASA PO QD LOPRESSOR PO Q12 LOVENOX SQ QD : TELEMETRY STATUS DCP: FROM HOME PLAN: WEAN OXYGEN TOLERATED COMPLETED REMDESIVIR
[2020-04-17 16:00] VITALS: BP 120/69
--- NOTE | 2020-04-17 17:11 | NUR ---
INSURANCE CLINCALS AND REVIEW FAXED TO [facility] T: [phone] F:[phone]
--- NOTE | 2020-04-17 19:19 | NUR ---
NURSE HAND-OFF REPORT: Important Events on Shift:[monitoring labs and VS, K lvel of 5.9, kayexalate given] Patient Status: [stable] Diet: [regular] Pending Orders: [] Pending Results/Labs:[] Pending MD notification:[] Latest Vital Signs: Temperature 97.5 , Pulse 92 , B/P 120 /69 , Respiratory Rate 24 , O2 SAT 95 , Nasal Cannula, O2 Flow Rate 15.0 . Vital Sign Comment: [] EKG Rhythm: Sinus Rhythm Rhythm change?: N MD Notified?: N - MD Response: Latest Velasquez Fall Score: 50 Fall Risk: High Risk Safety Measures: Call light Within Reach, Bed Alarm Zone 1, Side Rails Side Rails x3, Bed position Low and Locked. Fall Precautions: Patient Fall Education Report given to [SEGUNDO Salter].
--- NOTE | 2020-04-17 19:30 | NUR ---
NURSE NOTES: Pt. received from SEGUNDO Gaytan. Pt. AAOx4, on 15L NRB, breathing even and unlabored, no indications of respiratory distress, no active complaints of pain at this time. IV left forearm 24g saline locked. Bed low and locked, side rails x3 up, bed alarm active, and call light in reach.
[2020-04-17 20:00] VITALS: BP 113/66
[2020-04-18] VITALS: BP 110/74
--- NOTE | 2020-04-18 03:31 | NUR ---
NURSE NOTES: After going to go do ADL's and change the pt was found to have an oxygen saturation of 75% and RR of 28. Placed pt in high fowlers and educated on taking deep breaths to help with oxygenation. RT was called and pt's saturation did not improve. Contacted Dr. Carrero and explained the situation and the RT recommendation. New order of bipap 16/5 and to transfer to [facility]. Charge informed and also Rfid Developer.
[2020-04-18 04:00] VITALS: BP 136/89
--- NOTE | 2020-04-18 05:08 | Cardiology Report ---
APPROVED REPORT EKG Measurement Heart [id number] LA 130P55 [id number] <Conclusion> Sinus tachycardia Right axis deviation Abnormal ECG
--- NOTE | 2020-04-18 05:09 | Cardiology Report ---
APPROVED REPORT EKG Measurement Heart [id number] NE 134P50 [id number] <Conclusion> Normal sinus rhythm Left posterior fascicular block Abnormal ECG
--- NOTE | 2020-04-18 05:13 | Cardiology Report ---
APPROVED REPORT EXAM: Two-dimensional and M-mode echocardiogram with Doppler and color Doppler. INDICATION Tachycardia M-Mode DIMENSIONS IVSd1.1 (0.7-1.1cm)Left Atrium (MM)4.0 (1.6-4.0cm) LVDd3.8 (3.5-5.6cm)Aortic Root3.1 (2.0-3.7cm) PWd1.1 (0.7-1.1cm)Aortic Cusp Exc.1.6 (1.5-2.0cm) IVSs1.9 cmEPSS0.4 (>1.0cm) LVDs2.2 (2.5-4.0cm) PWs1.4 cm Other Information Technically limited study due to body habitus. <Conclusion> Technically difficult study due to poor apical windows. Normal left ventricular chamber size, systolic function and wall motion to extent visualized. Left ventricular ejection fraction estimated to be 65 %. Study quality precludes accurate assessment of regional wall motion. There may be diastolic flatenning of the septum suggestive of rv volume overload. RV is not well seen and RV enlargment cannot be excluded and is suspected on limit views No evidence of left ventricular hypertrophy. Anterior Echo-free space, may be due to pericardial fat or effusion. All other cardiac chamber sizes are within normal limits. Focal aortic valve sclerosis with adequate cusp excursion. Thickened mitral valve leaflets with normal excursion. Mitral annulus and aortic root calcification. Pulmonic valve not well visualized. Normal tricuspid valve structure. IVC at normal size without physiologic collapse suggestive of increased RA pressure. A color flow and spectral Doppler study was performed and revealed: Trace aortic regurgitation. Tracemitral regurgitation. Mitral inflow velocities probably normal. Mild to moderate tricuspid regurgitation. Tricuspid systolic velocities suggests peak right ventricular systolic pressure of 77 mmHg, consistent severe pulmonary hypertension. Pulmonic regurgitation present.
[2020-04-18 07:16] LABS: HEMATOCRIT 44.2 % (37.0-47.0); HEMOGLOBIN 12.5 G/DL (12.0-16.0); MEAN CORPUSCULAR VOLUME 82 FL (80-99); PLATELET COUNT 373 K/UL (150-450); RED BLOOD COUNT 5.39 M/UL (4.20-5.40); RED CELL DISTRIBUTION WIDTH 15.5 % (11.6-14.8); WHITE BLOOD COUNT 8.5 K/UL (4.8-10.8)
--- NOTE | 2020-04-18 07:23 | NUR ---
NURSE HAND-OFF REPORT: Important Events on Shift:[pt. stable, still with NRB at 15L] Patient Status: stable Diet: regular Pending Orders: na Pending Results/Labs:na Pending MD notification:na Latest Vital Signs: Temperature 97.7 , Pulse 83 , B/P 136 /89 , Respiratory Rate 20 , O2 SAT 95 , Nasal Cannula, O2 Flow Rate 15.0 . Vital Sign Comment: stable EKG Rhythm: Sinus Rhythm Rhythm change?: N MD Notified?: N - MD Response: Latest Velasquez Fall Score: 50 Fall Risk: High Risk Safety Measures: Call light Within Reach, Bed Alarm Zone 1, Side Rails Side Rails x3, Bed position Low and Locked. Fall Precautions: Patient Fall Education Report given to []. Addendum: 04/18/20 at 0738 by Gaetano Nathan RN Hand off given to SEGUNDO Dumont.
--- NOTE | 2020-04-18 07:25 | NUR ---
NURSE NOTES: Received hand-off report from Gaetano Nathan RN. Patient in high-fowlers, tolerating regular diet, on nonrebreather, spO2 94%, respirations 16 bpm, breathing even and unlabored, alert and oriented x4. Bed in lowest and locked position, bed alarm on, call light within reach.
--- NOTE | 2020-04-18 07:40 | NUR ---
CASE MANAGEMENT:REVIEW 04/17/20 SI: COVID PNA. GIANNA. ELEVATED TROPONIN 97.7 83 20 136/89 95% ON 15L/NRB IS: IV LASIX QD IV SOLUMEDROL 40MG Q12 PROTONIX PO Q12 ASA PO QD LOPRESSOR PO Q12 LOVENOX SQ QD : TELEMETRY STATUS DCP: FROM HOME PLAN: WEAN OXYGEN TOLERATED COMPLETED REMDESIVIR
[2020-04-18 07:56] LABS: ALANINE AMINOTRANSFERASE 69 U/L (12-78); ALBUMIN 2.5 G/DL (3.4-5.0); ALBUMIN/GLOBULIN RATIO 0.5 (1.0-2.7); ALKALINE PHOSPHATASE 102 U/L (46-116); ANION GAP 2 mmol/L (5-15); ASPARTATE AMINO TRANSFERASE 34 U/L (15-37); BILIRUBIN,TOTAL 0.6 MG/DL (0.2-1.0); BLOOD UREA NITROGEN 40 mg/dL (7-18); CARBON DIOXIDE 39 MMOL/L (21-32); CHLORIDE 101 MMOL/L (98-107); CREATININE 0.8 MG/DL (0.55-1.30); POTASSIUM 4.9 MMOL/L (3.5-5.1); SODIUM 142 MMOL/L (136-145)
[2020-04-18 08:00] VITALS: BP 107/67
[2020-04-18] MEDS: Solu-MEDROL 40mg Inj IVP SCH (08:52)
[2020-04-18] MEDS: Aspirin EC 81mg tab ORAL SCH (08:53)
[2020-04-18] MEDS: Docusate 100mg cap ORAL SCH ×3 (08:53→17:40)
[2020-04-18] MEDS: Metoprolol Tartrate 12.5mg TAB ORAL SCH ×2 (08:54→20:36)
--- NOTE | 2020-04-18 09:02 | General Progress Note ---
Subjective Constitutional: Reports: weakness Allergies: Coded Allergies: No Known Allergies (Unverified , 04/09/20) All Systems: reviewed and negative except above Subjective o2 mask sleepy Objective Last 24 Hour Vital Signs Date Time Temp Pulse Resp B/P (MAP) Pulse Ox O2 Delivery O2 Flow Rate FiO2 04/18/20 08:54 90 107/67 04/18/20 08:00 98.3 90 20 107/67 (80) 95 04/18/20 04:00 97.7 83 20 136/89 (105) 95 04/18/20 04:00 83 04/18/20 00:00 97.9 80 22 110/74 (86) 93 04/18/20 00:00 80 04/17/20 21:00 Non-Rebreather 15.0 04/17/20 20:40 90 113/66 04/17/20 20:00 87 04/17/20 20:00 97.7 87 20 113/66 (82) 92 04/17/20 16:00 97.5 89 24 120/69 (86) 95 04/17/20 16:00 92 04/17/20 12:00 92 04/17/20 12:00 97.9 86 26 115/72 (86) 94 Intake and Output 04/17/20 04/18/20 19:00 07:00 Intake Total 360 ml 360 ml Output Total 550 ml 700 ml Balance -190 ml -340 ml Intake Oral 360 ml Other 360 ml Output Urine Total 550 ml 700 ml # Voids 2 # Bowel Movements 2 Laboratory Tests 04/18/20 07:00: White Blood Count 8.5, Red Blood Count 5.39, Hemoglobin 12.5, Hematocrit 44.2, Mean Corpuscular Volume 82, Mean Corpuscular Hemoglobin 23.2L, Mean Corpuscular Hemoglobin Concent 28.3L, Red Cell Distribution Width 15.5H, Platelet Count 373, Mean Platelet Volume 8.5, Neutrophils (%) (Auto) , Lymphocytes (%) (Auto) , Monocytes (%) (Auto) , Eosinophils (%) (Auto) , Basophils (%) (Auto) , Neutrophils % (Manual) [Pending], Lymphocytes % (Manual) [Pending], Platelet Estimate [Pending], Platelet Morphology [Pending], D-Dimer 12.90H, Sodium Level 142, Potassium Level 4.9, Chloride Level 101, Carbon Dioxide Level 39H, Anion Gap 2L, Blood Urea Nitrogen 40H, Creatinine 0.8, Estimat Glomerular Filtration Rate > 60, Glucose Level 123H, Calcium Level 9.0, Phosphorus Level 4.0, Magnesium Level 2.2, Total Bilirubin 0.6, Aspartate Amino Transf (AST/SGOT) 34, Alanine Aminotransferase (ALT/SGPT) 69, Alkaline Phosphatase 102, C-Reactive Protein, Quantitative 0.5, Pro-B-Type Natriuretic Peptide 4821H, Total Protein 7.1, Albumin 2.5L, Globulin 4.6, Albumin/Globulin Ratio 0.5L Height (Feet): 5 Height (Inches): 4.00 Weight (Pounds): 341 General Appearance: lethargic EENT: normal ENT inspection Neck: normal alignment Cardiovascular: normal peripheral pulses, normal rate, regular rhythm Respiratory/Chest: chest wall non-tender, lungs clear, normal breath sounds Abdomen: normal bowel sounds, non tender, soft Extremities: normal inspection Edema: no edema noted Arm (L), no edema noted Arm (R), no edema noted Leg (L), no edema noted Leg (R), no edema noted Pedal (L), no edema noted Pedal (R), no edema noted Generalized Neurologic: motor weakness Skin: normal pigmentation, warm/dry Assessment/Plan Problem List: (1) HTN (hypertension) ICD Codes: I10 - Essential (primary) hypertension SNOMED: 60410572 (2) Diabetes ICD Codes: E11.9 - Type 2 diabetes mellitus without complications SNOMED: 52293620 (3) Obese ICD Codes: E66.9 - Obesity, unspecified SNOMED: 106152200, 642905036 (4) CHF (congestive heart failure) ICD Codes: I50.9 - Heart failure, unspecified SNOMED: 66288263 (5) Dyspnea ICD Codes: R06.00 - Dyspnea, unspecified SNOMED: 855385625 (6) Pneumonia due to COVID-19 virus ICD Codes: U07.1 - COVID-19; J12.82 - Pneumonia due to coronavirus disease 2019 SNOMED: 654201790989193243 (7) Respiratory distress ICD Codes: R06.03 - Acute respiratory distress SNOMED: 967589739 (8) Hypoxia ICD Codes: R09.02 - Hypoxemia SNOMED: 678007637 (9) COVID-19 ICD Codes: U07.1 - COVID-19 SNOMED: 668878633 Status: unchanged Assessment/Plan: o2 pum tx abx bp bs control cardio f/u cbc bmp am Dawood Mason DO Apr 18, 2020 09:01
--- NOTE | 2020-04-18 11:01 | Infectious Diseases Prog Note ---
Assessment/Plan Assessment/Plan antibiotics : none A 1. covid 19 pneumonia on 15 liters O2 with 94 % saturation s/p remdesivir 2. diabetes mellitus 3. obesity P 1. continue solumedrol taper dose 2. continue isolation Subjective Constitutional: Denies: fever, chills Respiratory: Reports: shortness of breath - less, dry cough Gastrointestinal/Abdominal: Denies: nausea, vomiting, diarrhea Musculoskeletal: Reports: pain - back Allergies: Coded Allergies: No Known Allergies (Unverified , 04/09/20) Objective Last 24 Hour Vital Signs Date Time Temp Pulse Resp B/P (MAP) Pulse Ox O2 Delivery O2 Flow Rate FiO2 04/18/20 09:00 Non-Rebreather 15.0 04/18/20 08:54 90 107/67 04/18/20 08:00 98.3 90 20 107/67 (80) 95 04/18/20 08:00 80 04/18/20 04:00 97.7 83 20 136/89 (105) 95 04/18/20 04:00 83 04/18/20 00:00 97.9 80 22 110/74 (86) 93 04/18/20 00:00 80 04/17/20 21:00 Non-Rebreather 15.0 04/17/20 20:40 90 113/66 04/17/20 20:00 87 04/17/20 20:00 97.7 87 20 113/66 (82) 92 04/17/20 16:00 97.5 89 24 120/69 (86) 95 04/17/20 16:00 92 04/17/20 12:00 92 04/17/20 12:00 97.9 86 26 115/72 (86) 94 Height (Feet): 5 Height (Inches): 4.00 Weight (Pounds): 341 Laboratory Tests Test 04/18/20 07:00 White Blood Count 8.5 K/UL (4.8-10.8) Red Blood Count 5.39 M/UL (4.20-5.40) Hemoglobin 12.5 G/DL (12.0-16.0) Hematocrit 44.2 % (37.0-47.0) Mean Corpuscular Volume 82 FL (80-99) Mean Corpuscular Hemoglobin 23.2 PG (27.0-31.0) L Mean Corpuscular Hemoglobin Concent 28.3 G/DL (32.0-36.0) L Red Cell Distribution Width 15.5 % (11.6-14.8) H Platelet Count 373 K/UL (150-450) Mean Platelet Volume 8.5 FL (6.5-10.1) Neutrophils (%) (Auto) % (45.0-75.0) Lymphocytes (%) (Auto) % (20.0-45.0) Monocytes (%) (Auto) % (1.0-10.0) Eosinophils (%) (Auto) % (0.0-3.0) Basophils (%) (Auto) % (0.0-2.0) Differential Total Cells Counted 100 Neutrophils % (Manual) 79 % (45-75) H Lymphocytes % (Manual) 14 % (20-45) L Monocytes % (Manual) 7 % (1-10) Eosinophils % (Manual) 0 % (0-3) Basophils % (Manual) 0 % (0-2) Band Neutrophils 0 % (0-8) Platelet Estimate Adequate Platelet Morphology Normal Hypochromasia 1+ Anisocytosis 1+ D-Dimer 12.90 mg/L FEU (0.00-0.49) H Sodium Level 142 MMOL/L (136-145) Potassium Level 4.9 MMOL/L (3.5-5.1) Chloride Level 101 MMOL/L (98-107) Carbon Dioxide Level 39 MMOL/L (21-32) H Anion Gap 2 mmol/L (5-15) L Blood Urea Nitrogen 40 mg/dL (7-18) H Creatinine 0.8 MG/DL (0.55-1.30) Estimat Glomerular Filtration Rate > 60 mL/min (>60) Glucose Level 123 MG/DL (74-106) H Calcium Level 9.0 MG/DL (8.5-10.1) Phosphorus Level 4.0 MG/DL (2.5-4.9) Magnesium Level 2.2 MG/DL (1.8-2.4) Total Bilirubin 0.6 MG/DL (0.2-1.0) Aspartate Amino Transf (AST/SGOT) 34 U/L (15-37) Alanine Aminotransferase (ALT/SGPT) 69 U/L (12-78) Alkaline Phosphatase 102 U/L (46-116) C-Reactive Protein, Quantitative 0.5 mg/dL (0.00-0.90) Pro-B-Type Natriuretic Peptide 4821 pg/mL (0-125) H Total Protein 7.1 G/DL (6.4-8.2) Albumin 2.5 G/DL (3.4-5.0) L Globulin 4.6 g/dL Albumin/Globulin Ratio 0.5 (1.0-2.7) L Current Medications Medications (Trade) Dose Ordered Sig/Arturo Route PRN Reason Start Time Stop Time Status Last Admin Dose Admin Acetaminophen (Tylenol) 650 mg Q4H PRN ORAL Temp >100.5 04/11/20 05:30 05/11/20 05:29 04/11/20 05:45 Albuterol Sulfate (Proventil MDI) 2 puff Q4H PRN INH Shortness of Breath 04/12/20 11:00 07/11/20 10:59 04/12/20 18:23 Aspirin (Ecotrin) 81 mg DAILY ORAL 04/12/20 09:00 05/27/20 08:59 04/18/20 08:53 Docusate Sodium (Colace) 100 mg THREE TIMES A DAY ORAL 04/12/20 18:00 05/12/20 17:59 04/18/20 08:53 Enoxaparin Sodium (Lovenox) 150 mg EVERY 12 HOURS SUBQ 04/18/20 10:37 07/17/20 10:36 Furosemide (Lasix) 40 mg DAILY IV 04/13/20 09:00 05/13/20 08:59 04/18/20 08:53 Guaifenesin/ Dextromethorphan (Robitussin DM Syrup) 15 ml Q6H PRN ORAL For Cough 04/10/20 19:00 07/09/20 18:59 04/12/20 09:22 Methylprednisolone Sodium Succinate (Solu-MEDROL) 40 mg EVERY 12 HOURS IVP 04/14/20 11:15 07/13/20 11:14 04/18/20 08:52 Metoprolol Tartrate (Lopressor) 12.5 mg Q12HR ORAL 04/11/20 21:00 07/10/20 20:59 04/17/20 20:40 Morphine Sulfate (Morphine Sulfate) 2 mg Q4H PRN IVP For Pain 04/15/20 10:45 04/22/20 10:44 Pantoprazole (Protonix) 40 mg EVERY 12 HOURS ORAL 04/12/20 21:00 05/12/20 20:59 04/18/20 08:53 Leo Lucero MD Apr 18, 2020 11:01
[2020-04-18] MEDS: Enoxaparin 100mg Inj SUBQ SCH ×2 (11:17→20:42)
--- NOTE | 2020-04-18 11:52 | Cardiac Electrophysiology PN ---
Assessment/Plan Assessment/Plan 1. Elevated troponin could be due to COVID myocarditis. The EKG does not show any acute ST-T wave abnormality. EF 65% . Continue aspirin and Lopressor. 2. Congestive heart failure with BNP of almost 10,000. EF 65%. On Lasix 40 iv daily 3. COVID pneumonia and respiratory failure, on 100% nonrebreather facemask, steroid, Remdesevir and broad-spectrum antibiotic. Fu by Dr. Carrero. 4. Severe TR and pulmonary HTN with PAP 70s. ? COPD. FU Dr Carrero 5. Diabetes. 6. Lactic acidemia. 7. High DDimer 13. Started on High dose Lovenox 150 bid DW RN Subjective Subjective Alert in NAD on 15 L NRB FM in covid isolation. Lovenox increased to 150 bid in view of high DDimer. In SR off restraints Objective Last 24 Hour Vital Signs Date Time Temp Pulse Resp B/P (MAP) Pulse Ox O2 Delivery O2 Flow Rate FiO2 04/18/20 09:00 Non-Rebreather 15.0 04/18/20 08:54 90 107/67 04/18/20 08:00 98.3 90 20 107/67 (80) 95 04/18/20 08:00 80 04/18/20 04:00 97.7 83 20 136/89 (105) 95 04/18/20 04:00 83 04/18/20 00:00 97.9 80 22 110/74 (86) 93 04/18/20 00:00 80 04/17/20 21:00 Non-Rebreather 15.0 04/17/20 20:40 90 113/66 04/17/20 20:00 87 04/17/20 20:00 97.7 87 20 113/66 (82) 92 04/17/20 16:00 97.5 89 24 120/69 (86) 95 04/17/20 16:00 92 04/17/20 12:00 92 04/17/20 12:00 97.9 86 26 115/72 (86) 94 Intake and Output 04/17/20 04/18/20 19:00 07:00 Intake Total 360 ml 360 ml Output Total 550 ml 700 ml Balance -190 ml -340 ml Intake Oral 360 ml Other 360 ml Output Urine Total 550 ml 700 ml # Voids 2 # Bowel Movements 2 Laboratory Tests Test 04/18/20 07:00 White Blood Count 8.5 K/UL (4.8-10.8) Red Blood Count 5.39 M/UL (4.20-5.40) Hemoglobin 12.5 G/DL (12.0-16.0) Hematocrit 44.2 % (37.0-47.0) Mean Corpuscular Volume 82 FL (80-99) Mean Corpuscular Hemoglobin 23.2 PG (27.0-31.0) L Mean Corpuscular Hemoglobin Concent 28.3 G/DL (32.0-36.0) L Red Cell Distribution Width 15.5 % (11.6-14.8) H Platelet Count 373 K/UL (150-450) Mean Platelet Volume 8.5 FL (6.5-10.1) Neutrophils (%) (Auto) % (45.0-75.0) Lymphocytes (%) (Auto) % (20.0-45.0) Monocytes (%) (Auto) % (1.0-10.0) Eosinophils (%) (Auto) % (0.0-3.0) Basophils (%) (Auto) % (0.0-2.0) Differential Total Cells Counted 100 Neutrophils % (Manual) 79 % (45-75) H Lymphocytes % (Manual) 14 % (20-45) L Monocytes % (Manual) 7 % (1-10) Eosinophils % (Manual) 0 % (0-3) Basophils % (Manual) 0 % (0-2) Band Neutrophils 0 % (0-8) Platelet Estimate Adequate Platelet Morphology Normal Hypochromasia 1+ Anisocytosis 1+ D-Dimer 12.90 mg/L FEU (0.00-0.49) H Sodium Level 142 MMOL/L (136-145) Potassium Level 4.9 MMOL/L (3.5-5.1) Chloride Level 101 MMOL/L (98-107) Carbon Dioxide Level 39 MMOL/L (21-32) H Anion Gap 2 mmol/L (5-15) L Blood Urea Nitrogen 40 mg/dL (7-18) H Creatinine 0.8 MG/DL (0.55-1.30) Estimat Glomerular Filtration Rate > 60 mL/min (>60) Glucose Level 123 MG/DL (74-106) H Calcium Level 9.0 MG/DL (8.5-10.1) Phosphorus Level 4.0 MG/DL (2.5-4.9) Magnesium Level 2.2 MG/DL (1.8-2.4) Total Bilirubin 0.6 MG/DL (0.2-1.0) Aspartate Amino Transf (AST/SGOT) 34 U/L (15-37) Alanine Aminotransferase (ALT/SGPT) 69 U/L (12-78) Alkaline Phosphatase 102 U/L (46-116) C-Reactive Protein, Quantitative 0.5 mg/dL (0.00-0.90) Pro-B-Type Natriuretic Peptide 4821 pg/mL (0-125) H Total Protein 7.1 G/DL (6.4-8.2) Albumin 2.5 G/DL (3.4-5.0) L Globulin 4.6 g/dL Albumin/Globulin Ratio 0.5 (1.0-2.7) L Objective HEAD AND NECK: No JVD. LUNGS: Decreased breath sounds. CARDIOVASCULAR: Tachycardic S1 and S2 with no gallop. ABDOMEN: Obese. EXTREMITIES: 1+ pitting edema. Dave Tijerina MD Apr 18, 2020 11:52
[2020-04-18 12:00] VITALS: BP 121/62
--- NOTE | 2020-04-18 12:47 | NUR ---
RD ASSESSMENT & RECOMMENDATIONS SEE CARE ACTIVITY FOR COMPLETE ASSESSMENT DAILY ESTIMATED NEEDS: Needs based on Obesity, pulmonary 80kg abw 20-25 kcals/kg 3634-8078 total kcals 1-1.5 g protein/kg 80-120 g total protein Fluid per MD on lasix NUTRITION DIAGNOSIS: Altered nutrition related lab values r/t clinical status as evidenced by A1C 6.6, elev K (5.3 now wnl), elev LFT's, elev BNP (7719->4821). CURRENT DIET: Regular PO DIET RECOMMENDATIONS: CARDIAC diet ADDITIONAL RECOMMENDATIONS: 1) Monitor po intake and BG/ need for carb control diet 2) Obtain a standing weight as able On lasix, need daily wts 3) Check lytes and BG daily -> on lasix and solumedrol 4) Rec SALAZAR BID to maintain skin integrity
--- NOTE | 2020-04-18 13:36 | Pulmonology Progress Note ---
Subjective ROS Limited/Unobtainable: Yes Interval Events: remains on NRB Constitutional: Denies: fever, chills HEENT: Repors: no symptoms Respiratory: Reports: no symptoms Cardiovascular: Reports: no symptoms Gastrointestinal/Abdominal: Denies: nausea, vomiting, diarrhea Musculoskeletal: Reports: pain - back Allergies: Coded Allergies: No Known Allergies (Unverified , 04/09/20) All Systems: reviewed and negative except above Objective Last 24 Hour Vital Signs Date Time Temp Pulse Resp B/P (MAP) Pulse Ox O2 Delivery O2 Flow Rate FiO2 04/18/20 12:00 98.4 87 22 121/62 (81) 95 04/18/20 09:00 Non-Rebreather 15.0 04/18/20 08:54 90 107/67 04/18/20 08:00 98.3 90 20 107/67 (80) 95 04/18/20 08:00 80 04/18/20 04:00 97.7 83 20 136/89 (105) 95 04/18/20 04:00 83 04/18/20 00:00 97.9 80 22 110/74 (86) 93 04/18/20 00:00 80 04/17/20 21:00 Non-Rebreather 15.0 04/17/20 20:40 90 113/66 04/17/20 20:00 87 04/17/20 20:00 97.7 87 20 113/66 (82) 92 04/17/20 16:00 97.5 89 24 120/69 (86) 95 04/17/20 16:00 92 Intake and Output 04/17/20 04/18/20 19:00 07:00 Intake Total 360 ml 360 ml Output Total 550 ml 700 ml Balance -190 ml -340 ml Intake Oral 360 ml Other 360 ml Output Urine Total 550 ml 700 ml # Voids 2 # Bowel Movements 2 General Appearance: no acute distress HEENT: atraumatic Respiratory: chest wall non-tender, inspiratory wheezing - resolved Cardiovascular: normal rate Abdomen: soft, non tender Laboratory Tests 04/18/20 07:00: White Blood Count 8.5, Red Blood Count 5.39, Hemoglobin 12.5, Hematocrit 44.2, Mean Corpuscular Volume 82, Mean Corpuscular Hemoglobin 23.2L, Mean Corpuscular Hemoglobin Concent 28.3L, Red Cell Distribution Width 15.5H, Platelet Count 373, Mean Platelet Volume 8.5, Neutrophils (%) (Auto) , Lymphocytes (%) (Auto) , Monocytes (%) (Auto) , Eosinophils (%) (Auto) , Basophils (%) (Auto) , Differential Total Cells Counted 100, Neutrophils % (Manual) 79H, Lymphocytes % (Manual) 14L, Monocytes % (Manual) 7, Eosinophils % (Manual) 0, Basophils % (Manual) 0, Band Neutrophils 0, Platelet Estimate Adequate, Platelet Morphology Normal, Hypochromasia 1+, Anisocytosis 1+, D-Dimer 12.90H, Sodium Level 142, Potassium Level 4.9, Chloride Level 101, Carbon Dioxide Level 39H, Anion Gap 2L, Blood Urea Nitrogen 40H, Creatinine 0.8, Estimat Glomerular Filtration Rate > 60, Glucose Level 123H, Calcium Level 9.0, Phosphorus Level 4.0, Magnesium Level 2.2, Total Bilirubin 0.6, Aspartate Amino Transf (AST/SGOT) 34, Alanine Aminotransferase (ALT/SGPT) 69, Alkaline Phosphatase 102, C-Reactive Protein, Quantitative 0.5, Pro-B-Type Natriuretic Peptide 4821H, Total Protein 7.1, Albumin 2.5L, Globulin 4.6, Albumin/Globulin Ratio 0.5L Current Medications Medications (Trade) Dose Ordered Sig/Arturo Route PRN Reason Start Time Stop Time Status Last Admin Dose Admin Acetaminophen (Tylenol) 650 mg Q4H PRN ORAL Temp >100.5 04/11/20 05:30 05/11/20 05:29 04/11/20 05:45 Albuterol Sulfate (Proventil MDI) 2 puff Q4H PRN INH Shortness of Breath 04/12/20 11:00 07/11/20 10:59 04/12/20 18:23 Aspirin (Ecotrin) 81 mg DAILY ORAL 04/12/20 09:00 05/27/20 08:59 04/18/20 08:53 Docusate Sodium (Colace) 100 mg THREE TIMES A DAY ORAL 04/12/20 18:00 05/12/20 17:59 04/18/20 08:53 Enoxaparin Sodium (Lovenox) 150 mg EVERY 12 HOURS SUBQ 04/18/20 10:37 07/17/20 10:36 04/18/20 11:17 Furosemide (Lasix) 40 mg DAILY IV 04/13/20 09:00 05/13/20 08:59 04/18/20 08:53 Guaifenesin/ Dextromethorphan (Robitussin DM Syrup) 15 ml Q6H PRN ORAL For Cough 04/10/20 19:00 07/09/20 18:59 04/12/20 09:22 Methylprednisolone Sodium Succinate (Solu-MEDROL) 40 mg DAILY IVP 04/19/20 09:00 07/18/20 08:59 Metoprolol Tartrate (Lopressor) 12.5 mg Q12HR ORAL 04/11/20 21:00 07/10/20 20:59 04/17/20 20:40 Morphine Sulfate (Morphine Sulfate) 2 mg Q4H PRN IVP For Pain 04/15/20 10:45 04/22/20 10:44 Pantoprazole (Protonix) 40 mg EVERY 12 HOURS ORAL 04/12/20 21:00 05/12/20 20:59 04/18/20 08:53 Assessment/Plan Assessment/Plan 1. COVID-19 pneumonia - s/p remdesivir, dexamethasone and broad spectrum abx - on 15L NRB, Sat at 94%; will wean down as tolerated; has been failing weaning with Venturi mask - Albuterol PRN wheezing - now on solumedrol - CXR 04/17 No significant change 2. Elevated inflammatory markers -continue Lovenox for DVT prophylaxis - Venous duplex neg for DVT (04/10) - D-dimer more elevated -> full dose Lovenox 1 mg/kg BID 3. GIANNA -IV fluids -Management per primary MD 4. Diabetes mellitus with hyperglycemia -Patient reports taking Metformin at home 5. Lactic acidemia - per primary MD 6. Hypocalcemia - per primary MD 7. Transaminitis, likely secondary to #1 - monitor AST, ALT 8. Elevated troponin -Serial troponin 9. New onset fever; resolved - Ceea=620.9 - no leukocytosis - monitor temp 10. Severe TR and pulmonary HTN with PAP 70s - Recommend outpatient evaluation The care for this patient was discussed with my supervising physician. Time spent for this case was approximately 31 minutes. Vitaly Mcginnis Apr 18, 2020 13:36
--- NOTE | 2020-04-18 14:13 | Nephrology Progress Note ---
Assessment/Plan Problem List: (1) Pneumonia due to COVID-19 virus (2) Obese (3) CHF (congestive heart failure) (4) Hypoxia (5) GIANNA (acute kidney injury) (6) Hyperkalemia Assessment Hyperkalemia Azotemia Diastolic dysfunction Covid pneumonia Pulmonary hypertension Severe TR Diabetes mellitus Morbid obesity Proteinuria Plan April 18: Labs reviewed. Serum potassium now within normal limit. Renal parameters stable. Continue per current management. April 17: Labs reviewed. Serum potassium remains elevated. Kayexalate p.o. given again today. Continue to monitor renal parameters and electrolyte. Continue per consultants. April 16: Labs reviewed. Elevated potassium noted. Kayexalate given. BUN/creatinine stable. Continue per current management. April 15: Labs reviewed. Renal parameters are stable. Continue per consultants. April 14: Labs reviewed. Electrolytes acceptable. Continue to monitor renal parameters. April 13: Today's labs reviewed. Hyperkalemia resolved. Continue to monitor renal parameters. Previously DC IV fluid P.o. Kayexalate Continue per cardiology Monitor renal parameters and electrolytes Continue per pulmonary Per orders Subjective ROS Limited/Unobtainable: Yes Objective Objective Last 24 Hour Vital Signs Date Time Temp Pulse Resp B/P (MAP) Pulse Ox O2 Delivery O2 Flow Rate FiO2 04/18/20 12:00 84 04/18/20 12:00 98.4 87 22 121/62 (81) 95 04/18/20 09:00 Non-Rebreather 15.0 04/18/20 08:54 90 107/67 04/18/20 08:00 98.3 90 20 107/67 (80) 95 04/18/20 08:00 80 04/18/20 04:00 97.7 83 20 136/89 (105) 95 04/18/20 04:00 83 04/18/20 00:00 97.9 80 22 110/74 (86) 93 04/18/20 00:00 80 04/17/20 21:00 Non-Rebreather 15.0 04/17/20 20:40 90 113/66 04/17/20 20:00 87 04/17/20 20:00 97.7 87 20 113/66 (82) 92 04/17/20 16:00 97.5 89 24 120/69 (86) 95 04/17/20 16:00 92 Intake and Output 04/17/20 04/18/20 19:00 07:00 Intake Total 360 ml 360 ml Output Total 550 ml 700 ml Balance -190 ml -340 ml Intake Oral 360 ml Other 360 ml Output Urine Total 550 ml 700 ml # Voids 2 # Bowel Movements 2 Current Medications Medications (Trade) Dose Ordered Sig/Arturo Route PRN Reason Start Time Stop Time Status Last Admin Dose Admin Acetaminophen (Tylenol) 650 mg Q4H PRN ORAL Temp >100.5 04/11/20 05:30 05/11/20 05:29 04/11/20 05:45 Albuterol Sulfate (Proventil MDI) 2 puff Q4H PRN INH Shortness of Breath 04/12/20 11:00 07/11/20 10:59 04/12/20 18:23 Aspirin (Ecotrin) 81 mg DAILY ORAL 04/12/20 09:00 05/27/20 08:59 04/18/20 08:53 Docusate Sodium (Colace) 100 mg THREE TIMES A DAY ORAL 04/12/20 18:00 05/12/20 17:59 04/18/20 14:02 Enoxaparin Sodium (Lovenox) 150 mg EVERY 12 HOURS SUBQ 04/18/20 10:37 07/17/20 10:36 04/18/20 11:17 Furosemide (Lasix) 40 mg DAILY IV 04/13/20 09:00 05/13/20 08:59 04/18/20 08:53 Guaifenesin/ Dextromethorphan (Robitussin DM Syrup) 15 ml Q6H PRN ORAL For Cough 04/10/20 19:00 07/09/20 18:59 04/12/20 09:22 Methylprednisolone Sodium Succinate (Solu-MEDROL) 40 mg DAILY IVP 04/19/20 09:00 07/18/20 08:59 Metoprolol Tartrate (Lopressor) 12.5 mg Q12HR ORAL 04/11/20 21:00 07/10/20 20:59 04/17/20 20:40 Morphine Sulfate (Morphine Sulfate) 2 mg Q4H PRN IVP For Pain 04/15/20 10:45 04/22/20 10:44 Pantoprazole (Protonix) 40 mg EVERY 12 HOURS ORAL 04/12/20 21:00 05/12/20 20:59 04/18/20 08:53 Laboratory Tests 04/18/20 07:00: White Blood Count 8.5, Red Blood Count 5.39, Hemoglobin 12.5, Hematocrit 44.2, Mean Corpuscular Volume 82, Mean Corpuscular Hemoglobin 23.2L, Mean Corpuscular Hemoglobin Concent 28.3L, Red Cell Distribution Width 15.5H, Platelet Count 373, Mean Platelet Volume 8.5, Neutrophils (%) (Auto) , Lymphocytes (%) (Auto) , Monocytes (%) (Auto) , Eosinophils (%) (Auto) , Basophils (%) (Auto) , Differential Total Cells Counted 100, Neutrophils % (Manual) 79H, Lymphocytes % (Manual) 14L, Monocytes % (Manual) 7, Eosinophils % (Manual) 0, Basophils % (Manual) 0, Band Neutrophils 0, Platelet Estimate Adequate, Platelet Morphology Normal, Hypochromasia 1+, Anisocytosis 1+, D-Dimer 12.90H, Sodium Level 142, Potassium Level 4.9, Chloride Level 101, Carbon Dioxide Level 39H, Anion Gap 2L, Blood Urea Nitrogen 40H, Creatinine 0.8, Estimat Glomerular Filtration Rate > 60, Glucose Level 123H, Calcium Level 9.0, Phosphorus Level 4.0, Magnesium Level 2.2, Total Bilirubin 0.6, Aspartate Amino Transf (AST/SGOT) 34, Alanine Aminotransferase (ALT/SGPT) 69, Alkaline Phosphatase 102, C-Reactive Protein, Quantitative 0.5, Pro-B-Type Natriuretic Peptide 4821H, Total Protein 7.1, Albumin 2.5L, Globulin 4.6, Albumin/Globulin Ratio 0.5L Height (Feet): 5 Height (Inches): 4.00 Weight (Pounds): 341 General Appearance: no apparent distress EENT: other - On nonrebreather mask Cardiovascular: tachycardia Respiratory/Chest: decreased breath sounds Abdomen: distended, other - Obese Cristhian Vick MD Apr 18, 2020 14:13
--- NOTE | 2020-04-18 14:41 | NUR ---
INSURANCE CLINCALS AND REVIEW FAXED TO [facility] T: [phone] F:[phone]
[2020-04-18 16:00] VITALS: BP 119/68
--- NOTE | 2020-04-18 19:09 | NUR ---
NURSE NOTES: Received report from SEGUNDO Negron. Pt is A/O x4 and Slovak speaking with simple Marshallese. Pt is on 15L NRB, breathing even and tachypnea but saturation is at 91%. No SOB or acute distress noted. No pain noted at this time. Pt has a IV on LFA 24G and saline locked. Bed lowest position and locked, side rails x3 up. Pt has call light with in reach. Will continue plan of care.
--- NOTE | 2020-04-18 19:30 | NUR ---
NURSE HAND-OFF REPORT: Important Events on Shift: Wound care, incontinence but pure wick working, on non-rebreather 15L Patient Status: full code, stable condition Diet: regular diet Pending Orders: [] Pending Results/Labs:[] Pending MD notification:[] Latest Vital Signs: Temperature 97.8 , Pulse 89 , B/P 119 /68 , Respiratory Rate 22 , O2 SAT 98 , Nasal Cannula, O2 Flow Rate 15.0 . Vital Sign Comment: [] EKG Rhythm: Sinus Rhythm Rhythm change?: N MD Notified?: N - MD Response: Latest Velasquez Fall Score: 50 Fall Risk: High Risk Safety Measures: Call light Within Reach, Bed Alarm Zone 1, Side Rails Side Rails x3, Bed position Low and Locked. Fall Precautions: Yellow Socks Yellow Gown Door Sign Patient Fall Education Report given to Yana Saglado RN.
[2020-04-18 20:00] VITALS: BP 118/70
[2020-04-19] VITALS: BP 109/62
[2020-04-19] MEDS: guaiFENesin /DM 10ml syrup ORAL PRN (00:18)
--- NOTE | 2020-04-19 03:30 | NUR ---
NURSE NOTES: Received report and patient from SEGUNDO Millan. Patient is awake, alert and afebrile. Pt is tachypneic at 30 bpm, visible use of accessory muscles of respiration, difficulty breathing lying flat. Pt is on non rebreather mask at 15 lpm saturating at 60-70 %. Continuous Bipap 16/5 was put on. Pt tolerated well and saturating 80-85%. With left FA 24 g iv line intact, patent and asymptomatic. Bp within normal limit. HOB elevated. Call light within reach. Bed rails are up and wheels are up. Needs were attended. Continue to monitor the patient. Addendum: 04/19/20 at 0730 by ZOE Nair RN ABG was ordered at 430pm
--- NOTE | 2020-04-19 03:44 | NUR ---
NURSE NOTES: Pt transferred in to [facility] and report given to JM. No family noted on the facesheet to notify.
[2020-04-19 04:00] VITALS: BP 153/77
--- NOTE | 2020-04-19 04:31 | NUR ---
NURSE NOTES: placed a call and spoke to Dr Carrero regarding patient's ABG results. received order and noted to transfer patient to ICU and be intubated. Nursing transportation supervisor made aware. Pt was saturating 80-85%. Awake, HOB elevated, call light light within reach. Continue to monitor the patient
--- NOTE | 2020-04-19 04:38 | NUR ---
CODE BLUE: Patient was noted to be in Sinus Bradycardia at 38 bpm on telemonitor. Went to patient right away. Assessed patient. unresponsive to call and tactile stimuli. Pulseless noted. Called Code blue. See Code sheet which remains on paper.
--- NOTE | 2020-04-19 04:45 | NUR ---
NURSE NOTES: No family/ relative or POA noted on the chart. Charge nurse and Nursing sorority supervisor were made aware. Pt was given pots mortem care. Addendum: 04/19/20 at 0814 by ZOE Nair RN Correction Time: 0520 done and documented
--- NOTE | 2020-04-19 05:25 | Emergency Room Report ---
History of Present Illness General Chief Complaint: Dyspnea/Respdistress Source: Medical Record Present Illness HPI This is a 39-year-old female who is morbidly obese with hypertension and diabetes. She was admitted to the hospital for Covid pneumonia and respiratory failure with oxygenation around 84% initially. She initially was doing fine on nonrebreather but have increasing dyspnea and was placed on a BiPAP. She failed that an was about to be to the ICU for intubation. Prior to that, she became bradycardic and apneic and then asystolic. A CODE BLUE was called. When I responded, patient is already undergoing CPR and had around epinephrine. There was no pulse. Patient received a total of 6 doses of epinephrine. A couple of times, she did regain a pulse for less than 30 seconds. I intubated the patient and also place a central line for epinephrine. Unfortunately, patient remained asystole after the 6 rounds of epinephrine and CPR and I called the code. 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 COVID-19 Screening: Positive COVID-19 COVID-19 Testing Source: 1 week ago Nursing Documentation-[facility] Past Medical History: No History, Except For Hx Cardiac Problems: Yes - CHF, obesity Hx Hypertension: Yes - high cholesterol Hx Diabetes: Yes Physical Exam Vital Signs Date Time Temp Pulse Resp B/P (MAP) Pulse Ox O2 Delivery O2 Flow Rate FiO2 04/15/20 08:00 69 04/15/20 08:00 97.9 22 133/83 (100) 97 04/15/20 09:00 Non-Rebreather 15.0 04/19/20 03:44 100 Procedures Central Line Central Line : Consent: Emergent Central Line Lumen: triple No Max Barrier Tech Because: emergency insertion Central Line Postion: femoral (R) US Guided Line?: Yes Vessel visualized with U/S: Right Femoral Vein Ultrasound Findings: Collapsible Vessel Complications: none Attempts: One Patient Tolerated: Well CPR/Code Blue CPR/Code Blue Narrative See code sheet for full list of medication and when was given. Intubation Intubation : Consent: Emergent Intubation Method: orotracheal Tube Size (cm): 7.5 Breath Sounds after Intubation: equal Intubation Complications: no complications Post Intubation Xray: No Attempts: One Patient Tolerated: Well Complications: None Medical Decision Making Diagnostic Impression: Primary Impression: Dyspnea Additional Impressions: Pneumonia due to COVID-19 virus Respiratory distress Cardiac arrest ER Course Patient presents with CODE BLUE from cardiac arrest from Covid pneumonia and respiratory failure. Patient was pronounced at 5:10 AM. Last Vital Signs Date Time Temp Pulse Resp B/P (MAP) Pulse Ox O2 Delivery O2 Flow Rate FiO2 04/19/20 04:00 98.2 133 30 153/77 (102) 85 04/19/20 03:44 100 04/18/20 21:00 Non-Rebreather 15.0 Status: other Disposition: Condition: Referrals: [facility],REFERRING (PCP) Thomas Chaudhry MD Apr 19, 2020 05:25
--- NOTE | 2020-04-19 06:17 | NUR ---
NURSE NOTES: Left a voicemail to Dr rodriguez that patient and no family documented to contact. Awaiting for response. Charge nurse made aware.
[2020-04-19] MEDS ORDERED: Solu-MEDROL 40mg Inj IVP SCH (09:00)
--- NOTE | 2020-04-19 13:16 | NUR ---
INSURANCE CLINCALS FAXED TO [facility] T: [phone] F:[phone]
--- NOTE | 2020-04-24 12:25 | Discharge Summary ---
Discharge Summary Discharge Summary _ DATE OF ADMISSION: 04/09/2020 DATE OF EXPIRATION: 04/19/2020 REASON FOR ADMISSION: 39 years old female with past medical history of diabetes mellitus, pretension, morbid obesity presented with shortness of breath. Patient was tested positive for COVID-19 7 days prior to presentation to ED. She was hypoxic saturating 84% on room air and required supplemental oxygen. Chest x-ray revealed severe cardiomegaly with multiple interstitial infiltrates and pulmonary vascular congestion. Patient received empiric antibioticS, steroid, Lovenox along with IV Lasix and admitted for further management. CONSULTANTS: hooker laster Dr. Pedro pulmonary Dr. Magan Acuna encapsulator Dr. Vick [facility]SE: Patient admitted to isolation room Supplemental oxygen provided and titrated to keep oximetry above 92%. Pulmonary toilet provided. Patient received steroids, antibiotics and remdesivir. Patient was followED -up with imaging and inflammatory markers. Venous duplex bilateral lower extremity revealed no evidence of acute DVT to the extent visualized. Echocardiogram demonstrates preserved ejection fraction of 65% Right ventricular systolic pressure of 77 consistent with severe pulmonary hypertension. Diuresis provided with close monitoring of volumes and cardiorenal parameters. Patient noted noted to have a high D-dimer and started on full anticoagulation with Lovenox. Patient also noted to have elevated troponin , possibly due to Covid myocarditis. EKG revealed no acute ST-T wave abnormality. Aspirin and beta-faina continued. Renal parameters AND electrolytes were closely monitored. Electrolytes corrected as needed. Noted transaminitis, probably due to Covid infection. Blood sugar was managed with sliding scale of insulin. Patient was on 100 % nonrebreather mask and then switched to the BiPAP. On 04/19 patient became asystolic . CODE BLUE was called. Unfortunately all resuscitative efforts appeared to be futile. Patient was pronounced at 5 AM 04/19. Cause of : cardiopulmonary arrest FINAL DIAGNOSES: s/p cardiopulmonary arrest COVID-19 pneumonia Acute hypoxemic respiratory failure Congestive heart failure Severe pulmonary hypertension Severe tricuspid regurgitation Diabetes mellitus Lactic acidemia Elevated troponin , possibly due to Covid myocarditis High D-dimer Acute kidney injury Hyperkalemia Transaminitis likely secondary to Covid pneumonia Diabetes mellitus with hyperglycemia Morbid obesity I have been assigned to dictate discharge summary for this account. I was not involved in the patient's management. Kate Serna NP Apr 24, 2020 12:25
== END 2020-04-19 05:10 | disposition expired | DRG 137 ==
LOC: EDBD 13:04 → EMR 13:40 → 4E 15:32 → EDBEDREQ 15:54 → EDBEDREQSVC 16:00 → 2E 16:09 → 2W 04-19 03:42
PROC: XW033E5 Introduction of Remdesivir Anti-infective into Peripheral Vein, Percutaneous Approach, New Technology Group 5 (ICD-10-PCS; principal; 2020-04-11)
PROC: 0BH17EZ Insertion of Endotracheal Airway into Trachea, Via Natural or Artificial Opening (ICD-10-PCS; 2020-04-19)
PROC: 06HM33Z Insertion of Infusion Device into Right Femoral Vein, Percutaneous Approach (ICD-10-PCS; 2020-04-19)
PROC: 5A12012 Performance of Cardiac Output, Single, Manual (ICD-10-PCS; 2020-04-19)
DX: U07.1 COVID-19 (principal); J12.82 Pneumonia due to coronavirus disease 2019; N17.9 Acute kidney failure, unspecified; E83.52 Hypercalcemia; E11.65 Type 2 diabetes mellitus with hyperglycemia; E87.2 Acidosis; J96.01 Acute respiratory failure with hypoxia; E66.01 Morbid (severe) obesity due to excess calories; I11.0 Hypertensive heart disease with heart failure; E78.5 Hyperlipidemia, unspecified; I50.30 Unspecified diastolic (congestive) heart failure; I36.1 Nonrheumatic tricuspid (valve) insufficiency; I27.20 Pulmonary hypertension, unspecified; Z79.84 Long term (current) use of oral hypoglycemic drugs; Z68.43 Body mass index [BMI] 50.0-59.9, adult; I40.0 Infective myocarditis; B97.29 Other coronavirus as the cause of diseases classified elsewhere; E87.5 Hyperkalemia
CPT/HCPCS: 36415; 71045; 80048; 80053; 80061; 81003; 82248; 82306; 82550; 82553; 82728; 82803; 82962; 82977; 83036; 83605; 83615; 83690; 83735; 83880; 84100; 84132; 84443; 84450; 84460; 84484; 84550; 85007; 85025; 85379; 85610; 85730; 86140; 87040; 87086; 92950; 93005; 93306; 93970; 96365; 96367; 96375; 99285; J0171; J3490; U0002